=== PATIENT | female | born 1995 | race African-American/Black ===

== ENCOUNTER 2019-10-05 02:23 | Inpatient (IN) | payer OTHER ==
[2019-10-05] MEDS ORDERED: FOLIC ACID INJECTION - 1 MG, THIAMINE HCL 100 MG, MULTIVIT INJECTION ADULT 10 ML in SOD... IVPB ONE (03:46)
--- NOTE | 2019-10-05 04:00 | PDOC ---
History of Present Illness - General Chief Complaint: Injury Stated Complaint: FALL Time Seen by Provider: 10/05/19 02:36 - History of Present Illness Initial Comments: 10/05/19 03:52 HPI: 24 y/o F with hx of breast reduction, abdominoplasty, BL lens placement and removal presenting following a fall. She states she was cleaning and getting ready to take out trash when her legs gave out and she fell down forward on to her knees and her face brushed against the ground. She was not able to get herself up off the floor due to feeling weak. She was on the ground for 25min before EMS came to help. She reports worsening weakness since . She reports proximal muscle distribution of the weakness in her hip flexors and deltoids. She reports weakness is more prominent when walking up the stairs, getting up out of bed, reaching above head, getting off toilet. She states her weakness is worse near the end of a flight of stairs. She also reports muscle soreness in the proximal muscle distribution. She reports SOB and increased WOB when walking long distances. She denies recent travel, camping, hikinh, lifting , exercise, fever, chills, rash, chest pain, GARCIA, LH, dizziness, dysuria. PMHx: as noted above ROS: as noted SHx: Denies tobacco use; no alcohol use; no rec drugs Allergies: NKDA ROS: GENERAL/CONSTITUTIONAL: No fever or chills. +weakness. HEAD, EYES, EARS, NOSE AND THROAT: No change in vision. No ear pain or discharge. No sore throat. CARDIOVASCULAR: No chest pain or shortness of breath RESPIRATORY: No cough, wheezing, or hemoptysis. GASTROINTESTINAL: No nausea, vomiting, diarrhea or constipation. GENITOURINARY: No dysuria, frequency, or change in urination. MUSCULOSKELETAL: +muscle pain. No neck or back pain. SKIN: No rash NEUROLOGIC: No headache, vertigo, loss of consciousness, or change in strength/ sensation. ENDOCRINE: No increased thirst. No abnormal weight change HEMATOLOGIC/LYMPHATIC: No anemia, easy bleeding, or history of blood clots. ALLERGIC/IMMUNOLOGIC: No hives or skin allergy. PE: GENERAL: Awake, alert, and fully oriented, no acute distress HEAD: No signs of trauma, normocephalic, atraumatic EYES: EOMI, sclera anicteric, conjunctiva clear, no nystagmus or fatigability on blinking ENT: Auricles normal inspection, hearing grossly normal, nares patent, oropharynx clear without exudates. Moist mucosa NECK: Normal ROM, no lymphadenopathy LUNGS: No increased work of breathing, symmetrical chest rise, clear to auscultation bilaterally, no wheezes, crackles or rhonchi HEART: Regular rate, regular rhythm, normal S1 and S2, no murmur, peripheral pulses 2+ and equal bilaterally. ABDOMEN: Soft, nondistended, nontender, normoactive bowel sounds. No guarding, no rebound. No masses. No CVAT MUSCULOSKELETAL: Normal inspection, FROM NEUROLOGICAL: Cranial nerves II through XII grossly intact. Normal speech, normal gait, 4/5 str on hip flexion BL SKIN: Warm, Dry, normal turgor, no rashes or lesions noted Past History - Past Medical History Allergies/Adverse Reactions: Allergies Allergy/AdvReac Type Severity Reaction Status Date / Time No Known Allergies Allergy Verified 10/05/19 02:57 Home Medications: Ambulatory Orders NK [No Known Home Medication] 10/05/19 CVA: No COPD: No - Psycho Social/Smoking Cessation Hx Smoking History: Never smoked Have you smoked in the past 12 months: No Information on smoking cessation initiated: No Hx Alcohol Use: No Drug/Substance Use Hx: No *Physical Exam - Vital Signs Last Vital Signs Temp Pulse Resp BP Pulse Ox 98.4 F 102 H 18 139/89 100 10/05/19 02:52 10/05/19 02:52 10/05/19 02:52 10/05/19 02:52 10/05/19 02:52 ED Treatment Course - LABORATORY CBC & Chemistry Diagram: 10/05/19 03:50 10/05/19 03:50 Medical Decision Making - Medical Decision Making 10/05/19 04:00 24 y/o F with hx of breast reduction, abdominoplasty, BL lens placement and removal presenting following a fall and progressively worsening proximal muscle weakness associated with muscle soreness. VSS, AF. PE with 4/5 hip flexor str. DDX include lyme, MS, MG, polymyositis, dermatomyositis, lyte imbalance, , nutritional deficiencies. -cbc, cmp, mg, phos, ua, upreg, ck, tsh -banana bag 10/05/19 05:45 Laboratory Tests 10/05/19 10/05/19 10/05/19 03:50 03:50 03:50 WBC 10.5 H Plt Count 441 H AST 603 H ALT 394 H Alkaline Phosphatase 41 L Troponin I 0.29 H TSH 6.07 H Urine Protein 1+ H Urine Blood 3+ H Will order T3/T4, EKG, CXR 10/05/19 06:38 will signout to AM team to followup admission Discharge - Discharge Information Problems reviewed: Yes Clinical Impression/Diagnosis: Proximal muscle weakness, Elevated troponin, Transaminitis Condition: Stable - Follow up/Referral Referrals: Sid Perry MD [Primary Care Provider] - - Patient Discharge Instructions - Post Discharge Activity
[2019-10-05 04:23] LABS: BASO % 0.3 % (0-2.0); EOS % 1.5 % (0-4.5); HEMATOCRIT 36.6 % (32.4-45.2); HEMOGLOBIN 11.8 GM/dL (10.7-15.3); LYMPH % 13.3 % (8-40); MCH 25.1 pg (25.7-33.7); MCHC 32.2 g/dl (32.0-36.0); MEAN CELL VOLUME 77.9 fl (80-96); MEAN PLT VOLUME 7.6 fl (7.5-11.1); MONO % 6.3 % (3.8-10.2); NEUT % 78.6 % (42.8-82.8); PLATELET COUNT 441 K/MM3 (134-434); RDW 16.2 % (11.6-15.6); WHITE BLOOD COUNT 10.5 K/mm3 (4.0-10.0)
[2019-10-05 04:24] LABS: EPI CELLS 2.7 /HPF (0-5/HPF); HYALINE CASTS 10 /lpf (0-8); URINE APPEARANCE CLEAR; URINE BACTERIA 20.3 /hpf (NEGATIVE); URINE BILIRUBIN NEGATIVE (NEGATIVE); URINE COLOR YELLOW; URINE GLUCOSE (UA) NEGATIVE (NEGATIVE); URINE KETONE NEGATIVE (NEGATIVE); URINE LEUK ESTERASE NEGATIVE (NEGATIVE); URINE NITRITE NEGATIVE (NEGATIVE); URINE PROTEIN 1+ (NEGATIVE); URINE RBC 1 /hpf (0-4); URINE WBC 2 /hpf (0-5)
--- NOTE | 2019-10-05 04:45 | PDOC ---
Attending Attestation - Resident Resident Name: Kelvin Brewster - ED Attending Attestation I have performed the following: I have examined & evaluated the patient, The case was reviewed & discussed with the resident, I agree w/resident's findings & plan - HPI HPI: 10/05/19 06:07 Pt comes with weakness that has been plaguing her since Jul. 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 She states that she lives on her own in [place] the city. She prepares her own food and she eats well. SHe doesn't smoke or drink and she has no idea what runs in the family. SHe has no PMHx and she had breast reduction and abdominoplasty in [place] in 2014. SHe is crying when I go to see her because she is frustrated and doesn't know what is wrong with herself. - Physicial Exam PE: 10/05/19 06:11 Pt is overweight Heart S1 S2 RRR lungs clear bilat afebrile abd soft NT ND no flank pain No pitting edema of legs. Pt states that she has edema when she sits for a long time Pt has exquisite body weakness. She is unable to sit up from a reclined position without great difficulty. I agree with resident exam - Medical Decision Making 10/05/19 04:55 Pt has normal chem. 10/05/19 04:56 UA normal; not . Some blood in the urine. Pt recently finished her menses. 10/05/19 06:13 Pt will be admitted for: elevated troponin elevated LFTs Elevated TSH extreme weakness She will require endocrine consult and cardio consult and neuro consult. Heart Score/ECG Review - ECG Intrepretation Rhythm: Regular Rhythm - Mcintosh Mcintosh: Normal - P and [place] Prominent R with upright T in V1 (true posterior OR): No Delta Wave(s) Present: No WPW: No - QRS Poor R Wave Progression: No Q Wave Present: No - ST and T Early Repolarization: No Non Specific ST-T Wave changes: No Flattened T Waves: No Prolonged Q-T Interval: No - ECG Impressions Normal ECG: Yes Non-specific ST Elevation: No Ischemic Changes: No Bradycardia: No Torsades elham Pointes: No WPW: No
[2019-10-05 05:14] LABS: ALBUMIN 3.5 g/dl (3.4-5.0); ALK PHOS 41 U/L (45-117); ANION GAP 7 MMOL/L (8-16); BILIRUBIN,TOTAL 0.3 mg/dL (0.2-1); BLOOD UREA NITROGEN 7.5 mg/dL (7-18); CALCIUM 8.9 mg/dL (8.5-10.1); CHLORIDE 104 mmol/L (98-107); CO2 27 mmol/L (21-32); CREATININE 0.5 mg/dL (0.55-1.3); GLUCOSE,RANDOM 103 mg/dL (74-106); MAGNESIUM 1.9 mg/dL (1.8-2.4); PHOSPHOROUS 3.3 mg/dL (2.5-4.9); POTASSIUM 3.6 mmol/L (3.5-5.1); SGOT/AST 603 U/L (15-37); SGPT/ALT 394 U/L (13-61); SODIUM 138 mmol/L (136-145); TOT PROT 7.9 g/dl (6.4-8.2)
[2019-10-05 08:59] LABS: INR 1.07 (0.83-1.09); PROTHROMBIN TIME (PATIENT) 12.6 SEC (9.7-13.0)
[2019-10-05 09:03] LABS: LDH 1668 U/L (84-246)
--- NOTE | 2019-10-05 09:38 | PN ---
Teaching Attending Note Name of Resident: Reynold Edwards ATTENDING PHYSICIAN STATEMENT I saw and evaluated the patient. I reviewed the resident's note and discussed the case with the resident. I agree with the resident's findings and plan as documented. SUBJECTIVE: Patient is a 24yo female presented with proximal lower exteremity weakness, unable to ambulate. OBJECTIVE: Vital Signs Temperature 98.6 F 10/05/19 05:27 Pulse Rate 87 10/05/19 05:27 Respiratory Rate 15 10/05/19 05:27 Blood Pressure 121/73 10/05/19 05:27 O2 Sat by Pulse Oximetry (%) 100 10/05/19 05:27 GENERAL: The patient is awake, alert, and fully oriented, in no acute distress. HEAD: Normal with no signs of trauma. EYES: PERRL, extraocular movements intact, sclera anicteric, conjunctiva clear. ENT: Ears normal, oropharynx clear without exudates, moist mucous membranes. NECK: Trachea midline, full range of motion, supple. LUNGS: Breath sounds equal, clear to auscultation bilaterally, no wheezes, no crackles, no accessory muscle use. HEART: Regular rate and rhythm, S1, S2 without murmur, rub or gallop. ABDOMEN: Soft, nontender, nondistended, normoactive bowel sounds, no guarding, no rebound, no hepatosplenomegaly, no masses. EXTREMITIES: 2+ pulses, warm, well-perfused, no edema. NEUROLOGICAL: Cranial nerves II through XII grossly intact. Normal speech, gait not observed. PSYCH: Normal mood, normal affect. SKIN: Warm, dry, normal turgor, no rashes or lesions noted CBCD WBC 10.5 K/mm3 (4.0-10.0) H 10/05/19 03:50 RBC 4.70 M/mm3 (3.60-5.2) 10/05/19 03:50 Hgb 11.8 GM/dL (10.7-15.3) 10/05/19 03:50 Hct 36.6 % (32.4-45.2) 10/05/19 03:50 MCV 77.9 fl (80-96) L 10/05/19 03:50 MCHC 32.2 g/dl (32.0-36.0) 10/05/19 03:50 RDW 16.2 % (11.6-15.6) H 10/05/19 03:50 Plt Count 441 K/MM3 (134-434) H 10/05/19 03:50 MPV 7.6 fl (7.5-11.1) 10/05/19 03:50 CMP Sodium 138 mmol/L (136-145) 10/05/19 03:50 Potassium 3.6 mmol/L (3.5-5.1) 10/05/19 03:50 Chloride 104 mmol/L (98-107) 10/05/19 03:50 Carbon Dioxide 27 mmol/L (21-32) 10/05/19 03:50 Anion Gap 7 MMOL/L (8-16) L 10/05/19 03:50 BUN 7.5 mg/dL (7-18) 10/05/19 03:50 Creatinine 0.5 mg/dL (0.55-1.3) L 10/05/19 03:50 Random Glucose 103 mg/dL (74-106) 10/05/19 03:50 Calcium 8.9 mg/dL (8.5-10.1) 10/05/19 03:50 Total Bilirubin 0.3 mg/dL (0.2-1) 10/05/19 03:50 AST 603 U/L (15-37) H 10/05/19 03:50 ALT 394 U/L (13-61) H 10/05/19 03:50 Alkaline Phosphatase 41 U/L (45-117) L 10/05/19 03:50 Total Protein 7.9 g/dl (6.4-8.2) 10/05/19 03:50 Albumin 3.5 g/dl (3.4-5.0) 10/05/19 03:50 CARDIAC ENZYMES Creatine Kinase U/L (26-192) 10/05/19 03:50 Troponin I 0.29 ng/ml (0.00-0.05) H 10/05/19 03:50 Current Medications Generic Name Dose Route Start Last Admin Trade Name Freq PRN Reason Stop Dose Admin Folic Acid 1 mg/ Thiamine HCl 1,000 mls @ 125 mls/hr 10/05/19 03:46 10/05/19 04:57 100 mg/ Multivitamins/Minerals IVPB 10/05/19 11:45 125 mls/hr 10 ml/ Sodium Chloride ONCE ONE Administration Abd. US shows only shows mild diffuse hepatic steatosis ASSESSMENT AND PLAN: Pt. is a 24 y.o. F with no PMHx. who presents with progressive muscle weakness over the last month. Patient stated that she was running some errands in the house when she collapsed, because of proximal lower extremity weakness. #Acute Progressive lower Muscle Weakness with cpk leve over >14K, cpk every 6 hrs, ivf 200cc/hr, nephro consult, tsh, ft4 ordered, hari=yme , flu ordered, drug screen #Acute Rhabdo. the cause is unknown so far , continue IVF 200cc/hr , nephro on the case #Tropinemia : likley due to rhabdomyolysis; Initial 0.29 will trend and repeat EKG to r/o dynamic changes f/u Echo as EKG shows TWI in septal leads and T-wave flattening in V3, with associated dyspnea on exertion after 1 block Cardiology consult to Dr. Howard appreciated. #Acute Transaminitis continue IVF , most likely due to rhabdomyolysis DVT Ppx: Hep SQ
--- NOTE | 2019-10-05 09:48 | HP ---
CHIEF COMPLAINT: Progressive weakness PCP: Dr. Sid Perry HISTORY OF PRESENT ILLNESS: Pt. is a 24 y.o. F w/o PMHx. who presents with progressive muscle weakness over the last month. Pt. states that she was taking care of errands in the house when she collapsed, because of lower extremity weakness. Pt. was unable to get off the floor so she called 911 and was brought to the hospital. Pt. states she was only on the floor for 15 minutes and denies working out or and trauma. Pt. states that the weakness is not new but started in July and has gotten worse. Pt. states that around 3 weeks ago she fell because of the same weakness. Pt. states that is has been getting worse. Pt. endorses shortness of breath on exertion and is only able to walk 1 block before feeling short of breath. Pt. states she only uses 1 pillow at night. Pt. states that she has numbness/tingling in her hands at night. Pt. denies any family history of cardiac disease, sudden in any family members under the age of 60, any family history of MS, ALS, or any other neurological disorders. Pt. denies any recent travel, and camping, recent illness, tick bites, changes in bowel or urinary habits. Pt. states her Last menstrual cycle just ended and that there was no changes. Pt. states she last saw her PCP in the summer and had an EKG of which she said was normal. Pt. does endorse that some time between the summer and now she did have an episode of chest pain that she never sought treatment for. Pt. denies any chest pain currently. ER course was notable for: (1)CBC, LDH, CMP, Abd US. (2)EKG, Cardiac monitoring (3) Recent Travel: No PAST MEDICAL HISTORY: Denies PAST SURGICAL HISTORY: Breast Reduction, Abdominoplasty, b/l lens surgery for blurry vision Social History: Smoking: Denies Alcohol: Denies Drugs: Denies Allergies No Known Allergies Allergy (Verified 10/05/19 02:57) HOME MEDICATIONS: Home Medications Medication Instructions Recorded NK [No Known Home Medication] 10/05/19 REVIEW OF SYSTEMS As above PHYSICAL EXAMINATION Vital Signs - 24 hr 10/05/19 10/05/19 02:52 05:27 Temperature 98.4 F 98.6 F Pulse Rate 102 H Pulse Rate [ 87 Right Radial] Respiratory 18 15 Rate Blood Pressure 139/89 Blood Pressure 121/73 [Left Arm] O2 Sat by Pulse 100 100 Oximetry (%) GENERAL: Awake, alert, and fully oriented, in no acute distress. HEAD: Normal with no signs of trauma. EYES: Pupils equal, round and reactive to light, extraocular movements intact, sclera anicteric, conjunctiva clear. EARS, NOSE, THROAT: Moist mucous membranes. NECK: Normal range of motion, supple without lymphadenopathy, JVD, or masses. LUNGS: Breath sounds equal, clear to auscultation bilaterally. No wheezes, and no crackles. No accessory muscle use. HEART: Regular rate and rhythm, normal S1 and S2, loud 1st heart sound ABDOMEN: Soft, nontender, not distended, normoactive bowel sounds, no guarding, no rebound, no masses. No hepatomegaly or splenomegaly. MUSCULOSKELETAL: Decreased passive ROM 2/2 weakness. No CVA tenderness. UPPER EXTREMITIES: 2+ radial pulses, warm, well-perfused. No cyanosis. No clubbing. No peripheral edema. 3/5 proximal extensor muscle strength, 4/5 proximal flexor muscle strength. 5/5 strenght in all other muscle groups including lap welder strength LOWER EXTREMITIES: 2+ dorsal pedal pulses, warm, well-perfused. No calf tenderness. trace non-pitting edema. 5/5 distal muscle strength. 2/5 flexor muscle strength, 5/5 extensor muscle strength, 5/5 muscle strength in all other muscle groups NEUROLOGICAL: Cranial nerves II-XII grossly intact. Normal speech. Gait not assessed. Sensation in tact throughout. PSYCHIATRIC: Cooperative. Good eye contact. Appropriate mood and affect. SKIN: Warm, dry, normal turgor Laboratory Results - last 24 hr 10/05/19 10/05/19 10/05/19 03:50 03:50 03:50 WBC 10.5 H RBC 4.70 Hgb 11.8 Hct 36.6 MCV 77.9 L MCH 25.1 L MCHC 32.2 RDW 16.2 H Plt Count 441 H MPV 7.6 Absolute Neuts (auto) 8.3 H Neutrophils % 78.6 Lymphocytes % 13.3 Monocytes % 6.3 Eosinophils % 1.5 Basophils % 0.3 Nucleated RBC % 0 PT with INR INR Sodium 138 Potassium 3.6 Chloride 104 Carbon Dioxide 27 Anion Gap 7 L BUN 7.5 Creatinine 0.5 L Est GFR (CKD-EPI)AfAm 155.90 Est GFR (CKD-EPI)NonAf 134.52 Random Glucose 103 Calcium 8.9 Phosphorus 3.3 Magnesium 1.9 Total Bilirubin 0.3 AST 603 H ALT 394 H Alkaline Phosphatase 41 L LD Total 1668 H Creatine Kinase Troponin I 0.29 H Total Protein 7.9 Albumin 3.5 TSH 6.07 H Free T4 1.13 Thyroxine (T4) 10.8 Resin T3 Uptake 35.0 Urine Color Urine Appearance Urine pH Ur Specific [place] Urine Protein Urine Glucose (UA) Urine Ketones Urine Blood Urine Nitrite Urine Bilirubin Urine Urobilinogen Ur Leukocyte Esterase Urine WBC (Auto) Urine RBC (Auto) Urine Casts (Auto) U Epithel Cells (Auto) Urine Bacteria (Auto) Urine HCG, Qual Negative 10/05/19 10/05/19 03:50 03:50 WBC RBC Hgb Hct MCV MCH MCHC RDW Plt Count MPV Absolute Neuts (auto) Neutrophils % Lymphocytes % Monocytes % Eosinophils % Basophils % Nucleated RBC % PT with INR 12.60 INR 1.07 Sodium Potassium Chloride Carbon Dioxide Anion Gap BUN Creatinine Est GFR (CKD-EPI)AfAm Est GFR (CKD-EPI)NonAf Random Glucose Calcium Phosphorus Magnesium Total Bilirubin AST ALT Alkaline Phosphatase LD Total Creatine Kinase Troponin I Total Protein Albumin TSH Free T4 Thyroxine (T4) Resin T3 Uptake Urine Color Yellow Urine Appearance Clear Urine pH 5.0 Ur Specific [place] 1.019 Urine Protein 1+ H Urine Glucose (UA) Negative Urine Ketones Negative Urine Blood 3+ H Urine Nitrite Negative Urine Bilirubin Negative Urine Urobilinogen 1.0 Ur Leukocyte Esterase Negative Urine WBC (Auto) 2 Urine RBC (Auto) 1 Urine Casts (Auto) 10 U Epithel Cells (Auto) 2.7 Urine Bacteria (Auto) 20.3 Urine HCG, Qual ASSESSMENT/PLAN: Pt. is a 24 y.o. F w/o PMHx. who presents with progressive muscle weakness over the last month. Pt. states that she was taking care of errands in the house when she collapsed, because of lower extremity weakness. #Progressive Muscle Weakness likely secondary to rhabdomyolsis CPK: 14,000+, LDH 1,600+ will give aggressive IVF and trend CPK daily f/u ESR and CRP Pt. denies increased physical activity in addition to the progressive nature of her illness, moderate supsicion for inflammatory myopathy Will monitor for signs of compartment syndrome Pt. has elevated TSH: 6.00, however normal levels of T3 and T4, likely subclinical hypothyroidism. Lower on the differential to be the causative agent. f/u Influenza swab f/u Lyme serology #Tropinemia likley 2/2 to rhabdomyolysis Initial 0.29 will trend and repeat EKG to r/o dynamic changes f/u Echo as EKG shows TWI in septal leads and T-wave flattening in V3, with associated dyspnea on exertion after 1 block Cardiology consult to Dr. Howard appreciated. #Transaminitis likes 2/2 to rhabdomyolysis will c/w trend Abd. US shows only shows mild diffuse hepatic steatosis #FEN NS @ 200, will encourage PO intake as well monitor electrolytes and replete as needed Regular Diet #DVT Ppx. Hep SQ Visit type - Emergency Visit Emergency Visit: Yes ED Registration Date: 10/05/19 Care time: The patient presented to the Emergency Department on the above date and was hospitalized for further evaluation of their emergent condition. - New Patient This patient is new to me today: Yes Date on this admission: 10/05/19 - Critical Care Critical Care patient: No ATTENDING PHYSICIAN STATEMENT I saw and evaluated the patient. I reviewed the resident's note and discussed the case with the resident. I agree with the resident's findings and plan as documented. SUBJECTIVE: OBJECTIVE: ASSESSMENT AND PLAN:
[2019-10-05] MEDS ORDERED: SODIUM CHLORIDE 1,000 ML IV SCH (10:00)
--- NOTE | 2019-10-05 11:01 | EKG ---
Test Reason : Blood Pressure : / mmHG Vent. Rate : 084 BPM Atrial Rate : 084 BPM P-R Int : 160 ms QRS Dur : 080 ms QT Int : 370 ms P-R-T Axes : 055 036 025 degrees QTc Int : 437 ms NORMAL SINUS RHYTHM NONSPECIFIC T WAVE ABNORMALITY ABNORMAL ECG NO PREVIOUS ECGS AVAILABLE Confirmed by IAN GALLARDO MD ([id number]) on 10/05/2019 11:01:06 AM Referred By: Confirmed By:IAN GALLARDO MD
[2019-10-05] MEDS: HEPARIN NA (PORCINE) 5,000 UNITS/ML 1ML VIAL SQ SCH ×2 (11:41→18:18)
[2019-10-05] MEDS: SODIUM CHLORIDE 1,000 ML IV SCH (13:18)
[2019-10-05 14:38] LABS: COCAINE, UR NEGATIVE ng/ml (CUTOFF=300); METHADONE, UR NEGATIVE ng/ml (CUTOFF=300); OPIATES, URI NEGATIVE ng/ml (CUTOFF=300); PHENCYCLIDINE,URINE NEGATIVE ng/ml (CUTOFF=25); URINE AMPHETAMINES NEGATIVE ng/ml (CUTOFF=500); URINE BARBITURATES NEGATIVE ng/ml (CUTOFF=200); URINE BENZODIAZEPINES NEGATIVE ng/ml (CUTOFF=200)
[2019-10-05] MEDS ORDERED: KETOROLAC TROMETHAMINE 15 MG/ML VIAL IM ONE (15:07)
[2019-10-05] MEDS ORDERED: ACETAMINOPHEN 1000 MG/100 ML VIAL (NON FORMULARY) IVPB ONE (15:08)
[2019-10-06] MEDS ORDERED: HEPARIN NA (PORCINE) 5,000 UNITS/ML 1ML VIAL ONE (03:20)
[2019-10-06] MEDS: HEPARIN NA (PORCINE) 5,000 UNITS/ML 1ML VIAL SQ SCH ×4 (03:27→18:34)
--- NOTE | 2019-10-06 10:02 | EKG ---
Test Reason : Blood Pressure : / mmHG Vent. Rate : 089 BPM Atrial Rate : 089 BPM P-R Int : 156 ms QRS Dur : 078 ms QT Int : 364 ms P-R-T Axes : 042 049 030 degrees QTc Int : 442 ms NORMAL SINUS RHYTHM NORMAL ECG WHEN COMPARED WITH ECG OF 05-OCT-2019 06:36, T WAVE VARIATION Confirmed by ROSELYN RICHARD MD ([id number]) on 10/06/2019 10:01:31 AM Referred By: Judith RUEDA Confirmed By:ROSELYN IRCHARD MD
--- NOTE | 2019-10-06 10:13 | PN ---
Physical Exam: SUBJECTIVE: Patient seen and examined. Pt. states her stay in the ED was uncomfortable overnight. Pt. endorses worsening numbness and swelling of the lower extremities. Pt. endorses sustained weakness of the lower extremities. Pt. otherwise endorses a good appetite and resolution of abdominal pain. Pt. denies chest pain or shortness of breath. Pt. states that she has not been receiving the correct amount of IV fluids, states that she has only received 2L in the last 24 hours. Pt was supposed to receive 5. Pt. states that her weakness has not improved. Pt. states that she feels her lower extremities are numb and swollen. Pt. states that her abdominal pain has gone away. OBJECTIVE: Vital Signs Period Temp Pulse Resp BP Sys/Newell Pulse Ox Last 24 Hr 97.9 F-98.9 F 66-93 16-20 122-141/70-98 100-100 GENERAL: Awake, alert, and fully oriented, in no acute distress. HEAD: Normal with no signs of trauma. EYES: Pupils equal, round and reactive to light, extraocular movements intact, sclera anicteric, conjunctiva clear. EARS, NOSE, THROAT: Moist mucous membranes. NECK: Normal range of motion, supple without lymphadenopathy, JVD, or masses. LUNGS: Breath sounds equal, clear to auscultation bilaterally. No wheezes, and no crackles. No accessory muscle use. HEART: Regular rate and rhythm, normal S1 and S2, loud 1st heart sound ABDOMEN: Soft, nontender, not distended, normoactive bowel sounds, no guarding, no rebound, no masses. No hepatomegaly or splenomegaly. MUSCULOSKELETAL: Decreased passive ROM 2/2 weakness. No CVA tenderness. UPPER EXTREMITIES: 2+ radial pulses, warm, well-perfused. No cyanosis. No clubbing. No peripheral edema. 3/5 proximal extensor muscle strength, 4/5 proximal flexor muscle strength. 5/5 strenght in all other muscle groups including director of labor and delivery strength LOWER EXTREMITIES: 2+ dorsal pedal pulses, warm, well-perfused. No calf tenderness. trace non-pitting edema. 5/5 distal muscle strength. 2/5 flexor muscle strength, 5/5 extensor muscle strength, 5/5 muscle strength in all other muscle groups NEUROLOGICAL: Cranial nerves II-XII grossly intact. Normal speech. Gait not assessed. Sensation in tact throughout. PSYCHIATRIC: Cooperative. Good eye contact. Appropriate mood and affect. SKIN: Warm, dry, normal turgor Laboratory Results - last 24 hr 10/05/19 10/05/19 10/05/19 07:06 09:20 10:50 ESR 24 H Hemoglobin A1c % Creatine Kinase > 21028 H Creatine Kinase Index 0.0 CK-MB (CK-2) 210.5 H Troponin I C-Reactive Protein Triglycerides Cholesterol Total LDL Cholesterol HDL Cholesterol Serum Folate Opiates Screen Negative Methadone Screen Negative Barbiturate Screen Negative Phencyclidine Screen Negative Ur Amphetamines Screen Negative MDMA (Ecstasy) Screen Negative Benzodiazepines Screen Negative Cocaine Screen Negative U Marijuana (THC) Screen Negative Influenza A (Rapid) Influenza B (Rapid) 10/05/19 10/05/19 10/05/19 10:50 10:50 10:50 ESR Hemoglobin A1c % 5.0 Creatine Kinase > 62582 H Creatine Kinase Index 0.0 CK-MB (CK-2) 210.5 H Troponin I 0.30 H C-Reactive Protein 1.9 H Triglycerides 355 H Cholesterol 176 Total LDL Cholesterol 95 HDL Cholesterol 30 L Serum Folate 19 H Opiates Screen Methadone Screen Barbiturate Screen Phencyclidine Screen Ur Amphetamines Screen MDMA (Ecstasy) Screen Benzodiazepines Screen Cocaine Screen U Marijuana (THC) Screen Influenza A (Rapid) Influenza B (Rapid) 10/05/19 10/05/19 10/05/19 16:00 20:27 22:55 ESR Hemoglobin A1c % Creatine Kinase > 71603 H Creatine Kinase Index 0.0 CK-MB (CK-2) 247.6 H Troponin I 0.28 H 0.29 H C-Reactive Protein Triglycerides Cholesterol Total LDL Cholesterol HDL Cholesterol Serum Folate Opiates Screen Methadone Screen Barbiturate Screen Phencyclidine Screen Ur Amphetamines Screen MDMA (Ecstasy) Screen Benzodiazepines Screen Cocaine Screen U Marijuana (THC) Screen Influenza A (Rapid) Negative Influenza B (Rapid) Negative Active Medications Home Medications Medication Instructions Recorded NK [No Known Home Medication] 10/05/19 Current Medications Heparin Sodium (Porcine) (Heparin -) 5,000 unit SQ Q8H-IV JESSI Last Admin: 10/06/19 03:57 Dose: 5,000 unit Sodium Chloride (Normal Saline -) 1,000 mls @ 200 mls/hr IV ASDIR JESSI Last Admin: 10/05/19 13:18 Dose: 200 mls/hr ASSESSMENT/PLAN: Pt. is a 24 y.o. F w/o PMHx. who presents with progressive muscle weakness over the last month. Pt. states that she was taking care of errands in the house when she collapsed, because of lower extremity weakness. #Progressive Muscle Weakness likely secondary to rhabdomyolsis w/ high suspicion for inflammatory myopathy as the etiology CPK: 14,000+, LDH 1,600+; call lab and they stated they are sending out the lab to get an actual count. will give aggressive IVF and trend CPK daily elevated ESR and CRP Pt. denies increased physical activity in addition to the progressive nature of her illness, moderate supsicion for inflammatory myopathy Will monitor for signs of compartment syndrome Pt. has elevated TSH: 6.00, however normal levels of fT3 and fT4, likely subclinical hypothyroidism. Lower on the differential to be the causative agent. f/u Rheumatology consult (Dr. Lea)- will likely need muscle biopsy because of the length of time that the Pt. has had symptoms. Flu negative UTox negative f/u Lyme serology #Tropinemia likley 2/2 to rhabdomyolysis Troponins plateaued, will continue to trend f/u Echo as EKG shows TWI in septal leads and T-wave flattening in V3, with associated dyspnea on exertion after 1 block Cardiology consult to Dr. Howard appreciated. #Transaminitis likes 2/2 to rhabdomyolysis will c/w trend Abd. US shows only shows mild diffuse hepatic steatosis #FEN NS @ 200, will encourage PO intake as well monitor electrolytes and replete as needed Regular Diet #DVT Ppx. Hep SQ Visit type - Emergency Visit Emergency Visit: Yes ED Registration Date: 10/05/19 Care time: The patient presented to the Emergency Department on the above date and was hospitalized for further evaluation of their emergent condition. - New Patient This patient is new to me today: No - Critical Care Critical Care patient: No - Discharge Referral Referred to [facility] No ATTENDING PHYSICIAN STATEMENT I saw and evaluated the patient. I reviewed the resident's note and discussed the case with the resident. I agree with the resident's findings and plan as documented. SUBJECTIVE: OBJECTIVE: ASSESSMENT AND PLAN:
[2019-10-06] MEDS: SODIUM CHLORIDE 1,000 ML IV SCH ×3 (10:47→23:28)
--- NOTE | 2019-10-06 10:59 | CON.CARD ---
Consult Consult Specialty:: Cardiology - History of Present Illness History of Present Illness: 24 y/o F with hx of breast reduction, abdominoplasty, BL lens placement and removal presenting following a fall. She states she was cleaning and getting ready to take out trash when her legs gave out and she fell down forward on to her knees and her face brushed against the ground. She was not able to get herself up off the floor due to feeling weak. She was on the ground for 25min before EMS came to help. She reports worsening weakness since . She reports proximal muscle distribution of the weakness in her hip flexors and deltoids. She reports weakness is more prominent when walking up the stairs, getting up out of bed, reaching above head, getting off toilet. She states her weakness is worse near the end of a flight of stairs. She also reports muscle soreness in the proximal muscle distribution. She reports SOB and increased WOB when walking long distances. She denies recent travel, camping, hikinh, lifting , exercise, fever, chills, rash, chest pain, GARCIA, LH, dizziness, dysuria. PMHx: as noted above ROS: as noted SHx: Denies tobacco use; no alcohol use; no rec drugs Allergies: NKDA - History Source History Provided By: Patient, Medical Record - Past Medical History ...: No - Alcohol/Substance Use Hx Alcohol Use: No - Smoking History Smoking history: Never smoked Have you smoked in the past 12 months: No Home Medications - Allergies Allergies/Adverse Reactions: Allergies Allergy/AdvReac Type Severity Reaction Status Date / Time No Known Allergies Allergy Verified 10/05/19 02:57 - Home Medications Home Medications: Ambulatory Orders NK [No Known Home Medication] 10/05/19 Review of Systems - Review of Systems Constitutional: reports: No Symptoms Eyes: reports: No Symptoms HENT: reports: No Symptoms Neck: reports: No Symptoms Cardiovascular: reports: No Symptoms Respiratory: reports: No Symptoms Gastrointestinal: reports: No Symptoms Genitourinary: reports: No Symptoms Breasts: reports: No Symptoms Reported Musculoskeletal: reports: No Symptoms Integumentary: reports: No Symptoms Neurological: reports: Weakness Endocrine: reports: No Symptoms Hematology/Lymphatic: reports: No Symptoms Psychiatric: reports: No Symptoms Vital Signs: Vital Signs Temperature 97.9 F 10/06/19 09:00 Pulse Rate 93 H 10/06/19 09:00 Respiratory Rate 18 10/06/19 09:00 Blood Pressure 123/70 10/06/19 09:00 O2 Sat by Pulse Oximetry (%) 100 10/05/19 23:44 Constitutional: Yes: Well Nourished, No Distress, Calm Eyes: Yes: WNL, Conjunctiva Clear, EOM Intact HENT: Yes: WNL, Atraumatic, Normocephalic Neck: Yes: WNL, Supple, Trachea Midline Respiratory: Yes: WNL, Regular, CTA Bilaterally Gastrointestinal: Yes: WNL, Normal Bowel Sounds Renal/: Yes: WNL Cardiovascular: Yes: WNL, Regular Rate and Rhythm Musculoskeletal: Yes: WNL Extremities: Yes: WNL Integumentary: Yes: WNL Neurological: Yes: WNL, Alert, Oriented ...Motor Strength: WNL Psychiatric: Yes: WNL, Alert, Oriented - Other Data Labs, Other Data: CBC, BMP 10/05/19 03:50 10/05/19 03:50 INR, PTT INR 1.07 (0.83-1.09) 10/05/19 03:50 Troponin, BNP 10/05/19 10/05/19 10/05/19 10:50 16:00 20:27 Troponin I 0.30 H 0.28 H 0.29 H Troponin, BNP 10/05/19 10/05/19 10/05/19 10:50 16:00 20:27 Troponin I 0.30 H 0.28 H 0.29 H Imaging - Results Chest X-ray: Image Reviewed (no i/e) EKG: Image Reviewed (sr wnl) Problem List - Problems (1) Elevated troponin Code(s): R79.89 - OTHER SPECIFIED ABNORMAL FINDINGS OF BLOOD CHEMISTRY (2) Proximal muscle weakness Code(s): M62.81 - MUSCLE WEAKNESS (GENERALIZED) (3) Transaminitis Code(s): R74.0 - NONSPEC ELEV OF LEVELS OF TRANSAMNS & LACTIC ACID DEHYDRGNSE Assessment/Plan Pt. is a 24 y.o. F w/o PMHx. who presents with progressive muscle weakness over the last month. Pt. states that she was taking care of errands in the house when she collapsed, because of lower extremity weakness. #Progressive Muscle Weakness/ rhabdomyolsis IVF f/u cpk Neurology eval IVF #Tropinemia likley 2/2 to rhabdomyolysis echo pending ekg #1 nonspecific rep abn ekg #2 WNL #Transaminitis likes 2/2 to rhabdomyolysis Abd. US shows only shows mild diffuse hepatic steatosis DVT PLx
--- NOTE | 2019-10-06 11:28 | ECHO ---
Name: RAFAELA RAMÍREZ Exam:Adult Echocardiogram Study Date: 10/06/2019 09:18 AM Age: 24 yrs Height: 65 in Weight: 175 lb BSA: 1.9 m2 MMode/2D Measurements & Calculations IVSd: 0.76 cm Ao root diam: 2.3 cm LVIDd: 4.1 cm LA dimension: 2.3 cm LVIDs: 2.7 cm LVPWd: 1.1 cm LVPWs: 1.3 cm EDV(Teich): 76.1 ml ESV(Teich): 26.0 ml LVOT diam: 2.0 cm RV S Valente: 14.8 cm/sec Doppler Measurements & Calculations MV E max valente: 107.1 cm/sec Ao V2 max: 165.3 cm/sec MV A max valente: 75.0 cm/sec Ao max P.0 mmHg MV E/A: 1.4 MV dec time: 0.08 sec RICA(V,D): 2.2 cm2 LV V1 max P.1 mmHg MR max valente: 300.7 cm/sec LV V1 max: 112.5 cm/sec MR max P.2 mmHg TR max valente: 212.4 cm/sec PA V2 max: 116.7 cm/sec TR max P.3 mmHg PA max P.5 mmHg Med Peak E' Valente: 11.3 cm/sec Med E/e': 9.5 Lat Peak E' Valente: 19.3 cm/sec Lat E/e': 5.5 Procedure A complete two-dimensional transthoracic echocardiogram was performed (2D, M-mode, Doppler and color flow Doppler). The study was technically good with many images being of high quality. Left Ventricle The left ventricle is normal in size. Left ventricular systolic function is normal. Ejection Fraction = 65- 70%. No regional wall motion abnormalities noted. Right Ventricle The right ventricle is normal size. The right ventricular systolic function is normal. Atria The left atrial size is normal. Right atrial size is normal. Mitral Valve The mitral valve is normal in structure and function. There is trace mitral regurgitation. Tricuspid Valve The tricuspid valve is normal in structure and function. There is Trace to mild tricuspid regurgitati on. Aortic Valve The aortic valve is normal in structure and function. No aortic regurgitation is present. Pulmonic Valve The pulmonic valve is not well visualized. Great Vessels The aortic root is normal size. Pericardium/Pleura There is no pericardial effusion. Interpretation Summary The left ventricle is normal in size. Left ventricular systolic function is normal. No regional wall motion abnormalities noted. Ejection Fraction = 65-70%. The right ventricular systolic function is normal. The left atrial size is normal. Right atrial size is normal. There is trace mitral regurgitation. There is Trace to mild tricuspid regurgitation. There is no pericardial effusion. Jose Marquez MD 10/06/2019 11:28 AM
[2019-10-06 11:45] LABS: EPI CELLS 3.1 /HPF (0-5/HPF); HYALINE CASTS 4 /lpf (0-8); PH,URINE 5.5 (5.0-8.0); URINE APPEARANCE CLEAR; URINE BILIRUBIN NEGATIVE (NEGATIVE); URINE COLOR YELLOW; URINE GLUCOSE (UA) NEGATIVE (NEGATIVE); URINE KETONE NEGATIVE (NEGATIVE); URINE LEUK ESTERASE NEGATIVE (NEGATIVE); URINE NITRITE NEGATIVE (NEGATIVE); URINE PROTEIN 1+ (NEGATIVE); URINE RBC 1 /hpf (0-4); URINE UROBILINOGEN 0.2 mg/dL (0.2-1.0); URINE WBC 1 /hpf (0-5)
--- NOTE | 2019-10-06 12:34 | CONSULT ---
Consult Consult Specialty:: Nephrology Reason for Consultation:: rhabdo - History of Present Illness Chief Complaint: weakness History of Present Illness: Pt is a 24 year old female with no pmhx who presents to the ER with weakness. She was found to be in rhabdo and I was called to evaluate her. She denies working out or strenuous exercise. She denies fevers or chills. She is wake and alert. She did complain of generalized body aches. she denies chest pain or shortness of breath. She denies hematuria. She denies family history of rheumatologic or neurologic diseases. - History Source History Provided By: Patient - Past Medical History ...: No - Alcohol/Substance Use Hx Alcohol Use: No - Smoking History Smoking history: Never smoked Have you smoked in the past 12 months: No Home Medications - Allergies Allergies/Adverse Reactions: Allergies Allergy/AdvReac Type Severity Reaction Status Date / Time No Known Allergies Allergy Verified 10/05/19 02:57 - Home Medications Home Medications: Ambulatory Orders NK [No Known Home Medication] 10/05/19 Family Medical History Family History: Denies Review of Systems - Review of Systems Constitutional: reports: Malaise Eyes: reports: No Symptoms HENT: reports: No Symptoms Neck: reports: No Symptoms Cardiovascular: reports: No Symptoms Respiratory: reports: No Symptoms Gastrointestinal: reports: No Symptoms Genitourinary: reports: No Symptoms Musculoskeletal: reports: No Symptoms Integumentary: reports: No Symptoms Neurological: reports: No Symptoms Endocrine: reports: No Symptoms Hematology/Lymphatic: reports: No Symptoms Psychiatric: reports: No Symptoms Physical Exam Vital Signs: Vital Signs Temperature 97.9 F 10/06/19 09:00 Pulse Rate 93 H 10/06/19 09:00 Respiratory Rate 18 10/06/19 09:00 Blood Pressure 123/70 10/06/19 09:00 O2 Sat by Pulse Oximetry (%) 100 10/06/19 08:45 Constitutional: Yes: Calm Eyes: Yes: Conjunctiva Clear HENT: Yes: Atraumatic Neck: Yes: Supple Cardiovascular: Yes: S1, S2 Respiratory: Yes: CTA Bilaterally Gastrointestinal: Yes: Soft Renal/: Yes: WNL Musculoskeletal: Yes: WNL Edema: No Neurological: Yes: Oriented Psychiatric: Yes: Oriented Labs: CBC, BMP 10/05/19 03:50 10/05/19 03:50 Laboratory Tests 10/05/19 10/05/19 10/05/19 03:50 07:06 22:55 Urine Protein Urine Blood Urine HCG, Qual Negative Opiates Screen Negative Methadone Screen Negative Cocaine Screen Negative U Marijuana (THC) Screen Negative Influenza A (Rapid) Negative Influenza B (Rapid) Negative 10/06/19 10:48 Urine Protein 1+ H Urine Blood 3+ H Urine HCG, Qual Opiates Screen Methadone Screen Cocaine Screen U Marijuana (THC) Screen Influenza A (Rapid) Influenza B (Rapid) Imaging - Results Chest X-ray: Report Reviewed Problem List - Problems (1) Rhabdomyolysis Code(s): M62.82 - RHABDOMYOLYSIS Assessment/Plan Current Medications Generic Name Dose Route Start Last Admin Trade Name Freq PRN Reason Stop Dose Admin Heparin Sodium (Porcine) 5,000 unit 10/05/19 10:00 10/06/19 10:47 Heparin - SQ 5,000 unit Q8H-IV JESSI Administration Sodium Chloride 1,000 mls @ 200 mls/hr 10/05/19 12:49 10/06/19 10:47 Normal Saline - IV 200 mls/hr ASDIR JESSI Administration Impression 1. rhabdo 2. hematuria 3. proteinuria 4. transaminitis Plan - cont fluids - check cmp - check cpk, called lab to report actual cpk level - pt with active sediment - check hep panel - monitor lytes and lfts - rheum eval
--- NOTE | 2019-10-06 14:40 | PN ---
Physical Exam: SUBJECTIVE: Patient seen and examined. Pt. states that she has not been receiving the correct amount of IV fluids, states that she has only received 2L in the last 24 hours. Pt was supposed to receive 5. Pt. states that her weakness has not improved. Pt. states that she feels her lower extremities are numb and swollen. Pt. states that her abdominal pain has gone away. OBJECTIVE: Vital Signs Period Temp Pulse Resp BP Sys/Newell Pulse Ox Last 24 Hr 97.9 F-98.9 F 66-93 16-20 122-141/70-98 100-100 GENERAL: Awake, alert, and fully oriented, in no acute distress. HEAD: Normal with no signs of trauma. EYES: Pupils equal, round and reactive to light, extraocular movements intact, sclera anicteric, conjunctiva clear. EARS, NOSE, THROAT: Moist mucous membranes. NECK: Normal range of motion, supple without lymphadenopathy, JVD, or masses. LUNGS: Breath sounds equal, clear to auscultation bilaterally. No wheezes, and no crackles. No accessory muscle use. HEART: Regular rate and rhythm, normal S1 and S2, loud 1st heart sound ABDOMEN: Soft, nontender, not distended, normoactive bowel sounds, no guarding, no rebound, no masses. No hepatomegaly or splenomegaly. MUSCULOSKELETAL: Decreased passive ROM 2/2 weakness. No CVA tenderness. UPPER EXTREMITIES: 2+ radial pulses, warm, well-perfused. No cyanosis. No clubbing. No peripheral edema. 3/5 proximal extensor muscle strength, 4/5 proximal flexor muscle strength. 5/5 strenght in all other muscle groups including upper cutter strength LOWER EXTREMITIES: 2+ dorsal pedal pulses, warm, well-perfused. No calf tenderness. trace non-pitting edema. 5/5 distal muscle strength. 2/5 flexor muscle strength, 5/5 extensor muscle strength, 5/5 muscle strength in all other muscle groups NEUROLOGICAL: Cranial nerves II-XII grossly intact. Normal speech. Gait not assessed. Sensation in tact throughout. PSYCHIATRIC: Cooperative. Good eye contact. Appropriate mood and affect. SKIN: Warm, dry, normal turgor Laboratory Results - last 24 hr 10/05/19 10/05/19 10/05/19 16:00 20:27 22:55 Creatine Kinase > 24289 H Creatine Kinase Index 0.0 CK-MB (CK-2) 247.6 H Troponin I 0.28 H 0.29 H Urine Color Urine Appearance Urine pH Ur Specific [place] Urine Protein Urine Glucose (UA) Urine Ketones Urine Blood Urine Nitrite Urine Bilirubin Urine Urobilinogen Ur Leukocyte Esterase Urine WBC (Auto) Urine RBC (Auto) Urine Casts (Auto) U Epithel Cells (Auto) Urine Bacteria (Auto) Influenza A (Rapid) Negative Influenza B (Rapid) Negative 10/06/19 10:48 Creatine Kinase Creatine Kinase Index CK-MB (CK-2) Troponin I Urine Color Yellow Urine Appearance Clear Urine pH 5.5 Ur Specific [place] 1.018 Urine Protein 1+ H Urine Glucose (UA) Negative Urine Ketones Negative Urine Blood 3+ H Urine Nitrite Negative Urine Bilirubin Negative Urine Urobilinogen 0.2 Ur Leukocyte Esterase Negative Urine WBC (Auto) 1 Urine RBC (Auto) 1 Urine Casts (Auto) 4 U Epithel Cells (Auto) 3.1 Urine Bacteria (Auto) 23.0 Influenza A (Rapid) Influenza B (Rapid) Active Medications Home Medications Medication Instructions Recorded NK [No Known Home Medication] 10/05/19 Current Medications Heparin Sodium (Porcine) (Heparin -) 5,000 unit SQ Q8H-IV [facility] Last Admin: 10/06/19 10:47 Dose: 5,000 unit Sodium Chloride (Normal Saline -) 1,000 mls @ 200 mls/hr IV ASDIR [facility] Last Admin: 10/06/19 14:38 Dose: 200 mls/hr ASSESSMENT/PLAN: Pt. is a 24 y.o. F w/o PMHx. who presents with progressive muscle weakness over the last month. Pt. states that she was taking care of errands in the house when she collapsed, because of lower extremity weakness. #Progressive Muscle Weakness likely secondary to rhabdomyolsis CPK: 14,000+, LDH 1,600+ will give aggressive IVF and trend CPK daily f/u ESR and CRP Pt. denies increased physical activity in addition to the progressive nature of her illness, moderate supsicion for inflammatory myopathy Will monitor for signs of compartment syndrome Pt. has elevated TSH: 6.00, however normal levels of T3 and T4, likely subclinical hypothyroidism. Lower on the differential to be the causative agent. f/u Influenza swab f/u Lyme serology #Tropinemia abdirizak 2/2 to rhabdomyolysis Troponins plateaued, will continue to trend f/u Echo as EKG shows TWI in septal leads and T-wave flattening in V3, with associated dyspnea on exertion after 1 block Cardiology consult to Dr. Howard appreciated. #Transaminitis likes 2/2 to rhabdomyolysis will c/w trend Abd. US shows only shows mild diffuse hepatic steatosis #FEN NS @ 200, will encourage PO intake as well monitor electrolytes and replete as needed Regular Diet #DVT Ppx. Hep SQ ATTENDING PHYSICIAN STATEMENT I saw and evaluated the patient. I reviewed the resident's note and discussed the case with the resident. I agree with the resident's findings and plan as documented. SUBJECTIVE: OBJECTIVE: ASSESSMENT AND PLAN:
--- NOTE | 2019-10-06 18:36 | PN ---
Teaching Attending Note Name of Resident: Reynold Edwards ATTENDING PHYSICIAN STATEMENT I saw and evaluated the patient. I reviewed the resident's note and discussed the case with the resident. I agree with the resident's findings and plan as documented. SUBJECTIVE: Patient is a 24yo female presented with proximal lower exteremity weakness, unable to ambulate. Vital Signs Temperature 98.6 F 10/06/19 14:00 Pulse Rate 91 H 10/06/19 14:00 Respiratory Rate 18 10/06/19 14:00 Blood Pressure 132/75 10/06/19 14:00 O2 Sat by Pulse Oximetry (%) 100 10/06/19 08:45 OBJECTIVE: GENERAL: The patient is awake, alert, and fully oriented, in no acute distress. HEAD: Normal with no signs of trauma. EYES: PERRL, extraocular movements intact, sclera anicteric, conjunctiva clear. ENT: Ears normal, oropharynx clear without exudates, moist mucous membranes. NECK: Trachea midline, full range of motion, supple. LUNGS: Breath sounds equal, clear to auscultation bilaterally, no wheezes, no crackles, no accessory muscle use. HEART: Regular rate and rhythm, S1, S2 without murmur, rub or gallop. ABDOMEN: Soft, nontender, nondistended, normoactive bowel sounds, no guarding, no rebound, no hepatosplenomegaly, no masses. EXTREMITIES: 2+ pulses, warm, well-perfused, no edema. NEUROLOGICAL: Cranial nerves II through XII grossly intact. Normal speech, gait not observed. PSYCH: Normal mood, normal affect. SKIN: Warm, dry, normal turgor, no rashes or lesions noted CBCD WBC 10.5 K/mm3 (4.0-10.0) H 10/05/19 03:50 RBC 4.70 M/mm3 (3.60-5.2) 10/05/19 03:50 Hgb 11.8 GM/dL (10.7-15.3) 10/05/19 03:50 Hct 36.6 % (32.4-45.2) 10/05/19 03:50 MCV 77.9 fl (80-96) L 10/05/19 03:50 MCHC 32.2 g/dl (32.0-36.0) 10/05/19 03:50 RDW 16.2 % (11.6-15.6) H 10/05/19 03:50 Plt Count 441 K/MM3 (134-434) H 10/05/19 03:50 MPV 7.6 fl (7.5-11.1) 10/05/19 03:50 CMP Sodium 138 mmol/L (136-145) 10/05/19 03:50 Potassium 3.6 mmol/L (3.5-5.1) 10/05/19 03:50 Chloride 104 mmol/L (98-107) 10/05/19 03:50 Carbon Dioxide 27 mmol/L (21-32) 10/05/19 03:50 Anion Gap 7 MMOL/L (8-16) L 10/05/19 03:50 BUN 7.5 mg/dL (7-18) 10/05/19 03:50 Creatinine 0.5 mg/dL (0.55-1.3) L 10/05/19 03:50 Random Glucose 103 mg/dL (74-106) 10/05/19 03:50 Calcium 8.9 mg/dL (8.5-10.1) 10/05/19 03:50 Total Bilirubin 0.3 mg/dL (0.2-1) 10/05/19 03:50 AST 603 U/L (15-37) H 10/05/19 03:50 ALT 394 U/L (13-61) H 10/05/19 03:50 Alkaline Phosphatase 41 U/L (45-117) L 10/05/19 03:50 Total Protein 7.9 g/dl (6.4-8.2) 10/05/19 03:50 Albumin 3.5 g/dl (3.4-5.0) 10/05/19 03:50 CARDIAC ENZYMES Creatine Kinase > 80229 U/L (26-192) H 10/05/19 16:00 Troponin I 0.29 ng/ml (0.00-0.05) H 10/05/19 20:27 Current Medications Generic Name Dose Route Start Last Admin Trade Name Freq PRN Reason Stop Dose Admin Heparin Sodium (Porcine) 5,000 unit 10/05/19 10:00 10/06/19 10:47 Heparin - SQ 5,000 unit Q8H-IV JESSI Administration Sodium Chloride 1,000 mls @ 200 mls/hr 10/05/19 12:49 10/06/19 14:38 Normal Saline - IV 200 mls/hr ASDIR JESSI Administration Home Medications Medication Instructions Recorded NK [No Known Home Medication] 10/05/19 Laboratory Tests 10/05/19 10/05/19 10/05/19 03:50 03:50 10:50 Hemoglobin A1c % Creatine Kinase > 92256 H CK-MB (CK-2) 210.5 H Troponin I C-Reactive Protein Triglycerides Cholesterol Total LDL Cholesterol HDL Cholesterol Serum Folate TSH 6.07 H Free T4 1.13 Free T3 4.0 Resin T3 Uptake 35.0 10/05/19 10/05/19 10/05/19 10:50 10:50 10:50 Hemoglobin A1c % 5.0 Creatine Kinase > 50325 H CK-MB (CK-2) 210.5 H Troponin I C-Reactive Protein 1.9 H Triglycerides 355 H Cholesterol 176 Total LDL Cholesterol 95 HDL Cholesterol 30 L Serum Folate 19 H TSH Free T4 Free T3 Resin T3 Uptake 10/05/19 10/05/19 16:00 20:27 Hemoglobin A1c % Creatine Kinase > 61139 H CK-MB (CK-2) 247.6 H Troponin I 0.28 H 0.29 H C-Reactive Protein Triglycerides Cholesterol Total LDL Cholesterol HDL Cholesterol Serum Folate TSH Free T4 Free T3 Resin T3 Uptake Abd. US shows only shows mild diffuse hepatic steatosis ASSESSMENT AND PLAN: Pt. is a 24 y.o. F with no PMHx. who presents with progressive muscle weakness over the last month. Patient stated that she was running some errands in the house when she collapsed, because of proximal lower extremity weakness. #Acute Progressive lower Muscle Weakness with cpk level continues to be over > 14K, cpk every 6 hrs, ivf 200cc/hr, nephro consult. Tsh level is 6.0 , ft4 ordered,lyme ordered , flu is neagtive, drug screen is negative, #Acute Rhabdo. the cause is unknown so far , continue IVF 200cc/hr , nephro on the case #Tropinemia : likley due to rhabdomyolysis; Initial 0.29 will trend and repeat EKG to r/o dynamic changes f/u Echo as EKG shows TWI in septal leads and T-wave flattening in V3, with associated dyspnea on exertion after 1 block Cardiology consult to Dr. Howard appreciated. #Acute Transaminitis continue IVF , most likely due to rhabdomyolysis DVT Ppx: Hep SQ
[2019-10-06 19:50] LABS: ALBUMIN 2.7 g/dl (3.4-5.0); CREATININE 0.4 mg/dL (0.55-1.3); POTASSIUM 3.4 mmol/L (3.5-5.1)
[2019-10-06 23:37] LABS: ALK PHOS 34 U/L (45-117); ANION GAP 8 MMOL/L (8-16); BILIRUBIN,TOTAL 0.3 mg/dL (0.2-1); BLOOD UREA NITROGEN 3.9 mg/dL (7-18); CALCIUM 8.1 mg/dL (8.5-10.1); CHLORIDE 110 mmol/L (98-107); CO2 24 mmol/L (21-32); GLUCOSE,RANDOM 93 mg/dL (74-106); SGOT/AST 513 U/L (15-37); SGPT/ALT 311 U/L (13-61); SODIUM 142 mmol/L (136-145); TOT PROT 6.4 g/dl (6.4-8.2)
[2019-10-07] MEDS: HEPARIN NA (PORCINE) 5,000 UNITS/ML 1ML VIAL SQ SCH ×3 (01:55→17:18)
[2019-10-07] MEDS: SODIUM CHLORIDE 1,000 ML IV SCH ×3 (06:13→13:23)
[2019-10-07] MEDS ORDERED: POTASSIUM CHLORIDE TABS 20 MEQ TABLET.ER (FP) PO ONE (06:40)
--- NOTE | 2019-10-07 07:13 | PN ---
Progress Note, Physician Chief Complaint: Pt A&Ox3; no chest pain; feels weak. History of Present Illness: SHe was reported crying initially in ER, frustrated over not knowing what was going on with her health. PMhx of breast reduction and abdominoplasty (in [place]; 2014), BL lens placement and removal presenting following a fall. She states she was cleaning and getting ready to take out trash when her legs gave out and she fell down forward on to her knees and her face brushed against the ground. She was not able to get herself up off the floor due to feeling weak. She was on the ground for 25min before EMS came to help. She reports worsening weakness since 2018. She reports proximal muscle distribution of the weakness in her hip flexors and deltoids. She reports weakness is more prominent when walking up the stairs, getting up out of bed, reaching above head, getting off toilet. She states her weakness is worse near the end of a flight of stairs. She also reports muscle soreness in the proximal muscle distribution. She reports SOB and increased WOB when walking long distances. She denies recent travel, camping , hikinh, lifting, exercise, fever, chills, rash, chest pain, GARCIA, LH, dizziness , dysuria. Hx weakness since July,. 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 Lives in her own apt in [facility] [place]; prepares her own food; eats well. No cigarettes or alcohol. Reportedly crying initially in ER, frustrated over not knowing what was going on with her health. PMHx: as noted above ROS: as noted SHx: Denies tobacco use; no alcohol use; no rec drugs Allergies: NKDA Denies family hx of CAD or CVA. - Current Medication List Current Medications: Active Medications Heparin Sodium (Porcine) (Heparin -) 5,000 unit SQ Q8H-IV JESSI Last Admin: 10/07/19 01:55 Dose: 5,000 unit Sodium Chloride (Normal Saline -) 1,000 mls @ 200 mls/hr IV ASDIR JESSI Last Admin: 10/07/19 06:13 Dose: 200 mls/hr Potassium Chloride (K-Dur -) 40 meq PO ONCE ONE Stop: 10/07/19 06:41 - Objective Vital Signs: Vital Signs Temperature 99.4 F 10/07/19 02:00 Pulse Rate 98 H 10/07/19 02:00 Respiratory Rate 18 10/07/19 02:00 Blood Pressure 143/86 10/07/19 02:00 O2 Sat by Pulse Oximetry (%) 100 10/06/19 22:00 Constitutional: Yes: Anxious, Other (overweight) Eyes: Yes: WNL HENT: Yes: Nasal Congestion Neck: Yes: WNL Cardiovascular: Yes: WNL Respiratory: Yes: WNL Gastrointestinal: Yes: WNL ...Rectal Exam: Yes: Deferred Genitourinary: Yes: WNL Breast(s): Yes: WNL Musculoskeletal: Yes: Joint Stiffness, Muscle Weakness Extremities: Yes: Cool, Other (left knee mildly swolen, hyperpigmented at site of fall, with small scab left thigh has large tatoo) Edema: Yes Edema: LLE: Trace, RLE: Trace Peripheral Pulses WNL: Yes Integumentary: Yes: Other (see "extremities") Neurological: Yes: Alert, Oriented, Weakness Psychiatric: Yes: Alert, Oriented, Other (anxiety/depression) Labs: CBC, BMP 10/05/19 03:50 10/06/19 18:30 INR, PTT INR 1.07 (0.83-1.09) 10/05/19 03:50 Abnormal Lab Results 10/06/19 10/06/19 10/07/19 10:48 18:30 07:20 Potassium 3.4 L 3.4 L Chloride 110 H 111 H Anion Gap 5 L BUN 3.9 L 3.6 L Creatinine 0.4 L 0.3 L Calcium 8.1 L 8.0 L Magnesium 1.7 L AST 513 H 478 H ALT 311 H 277 H Alkaline Phosphatase 34 L 29 L Creatine Kinase > 46710 H > 31130 H CK-MB (CK-2) 407.2 H 327.5 H Total Protein 5.8 L Albumin 2.7 L 2.4 L Urine Protein 1+ H Urine Blood 3+ H - ....Imaging Chest X-ray: Image Reviewed Ultrasound: Report Reviewed (ECHO: normal LVEF; normal chamber sizes) EKG: Image Reviewed Problem List - Problems (1) Hypokalemia Assessment/Plan: f/u after repletion; keep K 4.0-4.5 F/u Mg, PO4. Code(s): E87.6 - HYPOKALEMIA (2) Anxiety about health Code(s): F41.8 - OTHER SPECIFIED ANXIETY DISORDERS (3) Elevated troponin Code(s): R79.89 - OTHER SPECIFIED ABNORMAL FINDINGS OF BLOOD CHEMISTRY (4) Proximal muscle weakness Assessment/Plan: Pt has great trouble lifting her legs even an inch above the bed, and cannot bend her knees without difficulty. The weakness has been ongoing for months, and affects the thighs and shoulders/upper arms primarily. She has had "exzema" for the past few years (never saw a track supervisor), affecting the hands (mostly the palms), knees, and sometims patches on her chest and trunk. Apart from knee injury from the fall (which she says she was able to partially break the fall, causing less direct impact), she has had no other trauma. She denies recent viral illness; denies HIV from test done "long ago" (she wishes to be tested again). R/o inflammatory myopathy/myositis Workup may include blood work for autoAbs, e.g. antisynthetase Ab, myositis specific AAb, anti Mi2, anti SRP), EMG, search for viral origin; biopsy. Code(s): M62.81 - MUSCLE WEAKNESS (GENERALIZED) (5) Rhabdomyolysis Assessment/Plan: f/u CK, TNI (am results pending). Etiology unclear. Pt denies illicit medications, home remedies, Code(s): M62.82 - RHABDOMYOLYSIS (6) Transaminitis Code(s): R74.0 - NONSPEC ELEV OF LEVELS OF TRANSAMNS & LACTIC ACID DEHYDRGNSE (7) Anxiety and depression Assessment/Plan: Pt says she has become depressed since entering university. She expresses interest in talking with a psychiatrist. Code(s): F41.9 - ANXIETY DISORDER, UNSPECIFIED; F32.9 - MAJOR DEPRESSIVE DISORDER, SINGLE EPISODE, UNSPECIFIED
[2019-10-07 09:49] LABS: ALBUMIN 2.4 g/dl (3.4-5.0); ALK PHOS 29 U/L (45-117); ANION GAP 5 MMOL/L (8-16); BILIRUBIN,TOTAL 0.3 mg/dL (0.2-1); BLOOD UREA NITROGEN 3.6 mg/dL (7-18); CHLORIDE 111 mmol/L (98-107); CO2 25 mmol/L (21-32); CREATININE 0.3 mg/dL (0.55-1.3); GLUCOSE,RANDOM 87 mg/dL (74-106); MAGNESIUM 1.7 mg/dL (1.8-2.4); PHOSPHOROUS 3.9 mg/dL (2.5-4.9); POTASSIUM 3.4 mmol/L (3.5-5.1); SGOT/AST 478 U/L (15-37); SGPT/ALT 277 U/L (13-61); SODIUM 141 mmol/L (136-145); TOT PROT 5.8 g/dl (6.4-8.2)
[2019-10-07] MEDS ORDERED: MAGNESIUM SULF 50% (8.12 MEQ/2 ML-1 GM VIAL) IVPB ONE (09:58)
--- NOTE | 2019-10-07 11:28 | EKG ---
Test Reason : Blood Pressure : / mmHG Vent. Rate : 095 BPM Atrial Rate : 095 BPM P-R Int : 158 ms QRS Dur : 074 ms QT Int : 344 ms P-R-T Axes : 069 060 033 degrees QTc Int : 432 ms NORMAL SINUS RHYTHM NONSPECIFIC T WAVE ABNORMALITY ABNORMAL ECG WHEN COMPARED WITH ECG OF 05-OCT-2019 14:52, NO SIGNIFICANT CHANGE WAS FOUND Confirmed by Samuel Steward MD ([id number]) on 10/07/2019 11:28:10 AM Referred By: LANCE RUEDA Confirmed By:Samuel Steward MD
--- NOTE | 2019-10-07 11:36 | PN ---
Progress Note, Physician History of Present Illness: Pt seen and examined at bedside. She still has muscle pain and weakness. - Current Medication List Current Medications: Active Medications Heparin Sodium (Porcine) (Heparin -) 5,000 unit SQ Q8H-IV JESSI Last Admin: 10/07/19 09:51 Dose: 5,000 unit Sodium Chloride (Normal Saline -) 1,000 mls @ 200 mls/hr IV ASDIR JESSI Last Admin: 10/07/19 10:51 Dose: 200 mls/hr - Objective Vital Signs: Vital Signs Temperature 98 F 10/07/19 10:00 Pulse Rate 96 H 10/07/19 10:00 Respiratory Rate 18 10/07/19 10:00 Blood Pressure 127/66 10/07/19 10:00 O2 Sat by Pulse Oximetry (%) 100 10/06/19 22:00 Constitutional: Yes: Calm Eyes: Yes: Conjunctiva Clear HENT: Yes: Atraumatic Neck: Yes: Supple Cardiovascular: Yes: S1, S2 Respiratory: Yes: CTA Bilaterally Gastrointestinal: Yes: Normal Bowel Sounds, Soft Genitourinary: Yes: WNL Musculoskeletal: Yes: Muscle Weakness Edema: No Neurological: Yes: Oriented Psychiatric: Yes: Oriented Labs: CBC, BMP 10/05/19 03:50 10/07/19 07:20 INR, PTT INR 1.07 (0.83-1.09) 10/05/19 03:50 Problem List - Problems (1) Rhabdomyolysis Code(s): M62.82 - RHABDOMYOLYSIS Assessment/Plan Current Medications Generic Name Dose Route Start Last Admin Trade Name Parker PRN Reason Stop Dose Admin Heparin Sodium (Porcine) 5,000 unit 10/05/19 10:00 10/07/19 09:51 Heparin - SQ 5,000 unit Q8H-IV JESSI Administration Sodium Chloride 1,000 mls @ 200 mls/hr 10/05/19 12:49 10/07/19 10:51 Normal Saline - IV 200 mls/hr ASDIR JESSI Administration Impression 1. rhabdo 2. hematuria 3. proteinuria 4. transaminitis 5. hypokalemia Plan - cont fluids - repeat labs in am - cpk remains elevated, [place] [address], they will try to get a level - called and spoke to rheum, they will see her today - repeat ua - monitor lfts
--- NOTE | 2019-10-07 13:53 | CONSULT ---
Consult Consult Specialty:: Rheumatology - History of Present Illness History of Present Illness: 24 year old female with no relevant past medical history admitted with progressive muscle weakness and elevated CP{K. HPI. On May 2019 the patient noticed mild difficulty in climbing stairs and was otherwise asymptomatic. She had progressive weakness and 2 months later she had great difficulty in climbing starts or to stand up from a sitting position. She had mild SOB and also had difficulty in raising objects above her shoulders. On August 2019 she avoided stairs as she could not climb them. She reports a penitentiary history of eczema in hands and denies other skin rash. She denies cough, joint pain or fever. On admission CK >56206, AST 513, ALT 311 and Alk. p 34, Urinalysis protein 1+ and Blood 3+ (The patient ended her menstrual period 2 days ago). - History Source History Provided By: Patient, Medical Record - Past Medical History ...: No - Alcohol/Substance Use Hx Alcohol Use: No - Smoking History Smoking history: Never smoked Have you smoked in the past 12 months: No Home Medications - Allergies Allergies/Adverse Reactions: Allergies Allergy/AdvReac Type Severity Reaction Status Date / Time No Known Allergies Allergy Verified 10/05/19 02:57 - Home Medications Home Medications: Ambulatory Orders NK [No Known Home Medication] 10/05/19 Review of Systems - Review of Systems Constitutional: reports: Malaise, Weakness Eyes: reports: No Symptoms HENT: reports: No Symptoms Neck: reports: No Symptoms Cardiovascular: reports: No Symptoms Respiratory: reports: SOB Gastrointestinal: reports: No Symptoms Genitourinary: reports: No Symptoms Musculoskeletal: reports: Muscle Weakness, Other (See HPI) Physical Exam Vital Signs: Vital Signs Temperature 98 F 10/07/19 10:00 Pulse Rate 96 H 10/07/19 10:00 Respiratory Rate 18 10/07/19 10:00 Blood Pressure 127/66 10/07/19 10:00 O2 Sat by Pulse Oximetry (%) 100 10/07/19 09:00 Constitutional: Yes: Mild Distress Eyes: Yes: WNL HENT: Yes: WNL Neck: Yes: WNL Cardiovascular: Yes: WNL Respiratory: Yes: WNL Gastrointestinal: Yes: WNL Musculoskeletal: Yes: Other (No active joints., Significant proximal muscle weakness involving flexors of the neck, and proximal muscles of upper and lower limbs. Lining Finisher strength was normal.) Labs: CBC, BMP 10/05/19 03:50 10/07/19 07:20 Laboratory Tests 10/05/19 10/05/19 10/05/19 03:50 09:20 10:50 ESR 24 H Calcium Phosphorus Magnesium Total Bilirubin AST ALT Creatine Kinase Total Protein Albumin Triglycerides 355 H Cholesterol 176 Total LDL Cholesterol 95 HDL Cholesterol 30 L Serum Folate 19 H Urine pH Ur Specific [place] Urine Protein Urine Glucose (UA) Urine Ketones Urine Blood Urine Nitrite Urine Bilirubin Urine Urobilinogen Ur Leukocyte Esterase Urine WBC (Auto) Urine RBC (Auto) Urine Casts (Auto) U Epithel Cells (Auto) Lyme Screen IgG & IgM <0.91 10/05/19 10/06/19 10/06/19 16:00 10:48 18:30 ESR Calcium Phosphorus Magnesium Total Bilirubin AST ALT Creatine Kinase > 29094 H > 47571 H Total Protein Albumin Triglycerides Cholesterol Total LDL Cholesterol HDL Cholesterol Serum Folate Urine pH 5.5 Ur Specific [place] 1.018 Urine Protein 1+ H Urine Glucose (UA) Negative Urine Ketones Negative Urine Blood 3+ H Urine Nitrite Negative Urine Bilirubin Negative Urine Urobilinogen 0.2 Ur Leukocyte Esterase Negative Urine WBC (Auto) 1 Urine RBC (Auto) 1 Urine Casts (Auto) 4 U Epithel Cells (Auto) 3.1 Lyme Screen IgG & IgM 10/07/19 07:20 ESR Calcium 8.0 L Phosphorus 3.9 Magnesium 1.7 L Total Bilirubin 0.3 AST 478 H ALT 277 H Creatine Kinase > 10982 H Total Protein 5.8 L Albumin 2.4 L Triglycerides Cholesterol Total LDL Cholesterol HDL Cholesterol Serum Folate Urine pH Ur Specific [place] Urine Protein Urine Glucose (UA) Urine Ketones Urine Blood Urine Nitrite Urine Bilirubin Urine Urobilinogen Ur Leukocyte Esterase Urine WBC (Auto) Urine RBC (Auto) Urine Casts (Auto) U Epithel Cells (Auto) Lyme Screen IgG & IgM Problem List - Problems (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 Hematuria in urinalysis probably related to her period, It is unlikely that she has lupsu. Plan: Solumedrol 30 mg IV BID, Methotrextae 15 mg PO once per week, Folic acid 1 mg/d Consults to Dr. Liao for EMG and Dr. Norman for muscle biopsy. The laboratory sent out samples of CK for quantification. Code(s): M33.20 - POLYMYOSITIS, ORGAN INVOLVEMENT UNSPECIFIED
[2019-10-07] MEDS ORDERED: METHOTREXATE 2.5 MG TABLET PO SCH (14:00)
--- NOTE | 2019-10-07 14:25 | PN ---
Teaching Attending Note Name of Resident: Maximino Meraz ATTENDING PHYSICIAN STATEMENT I saw and evaluated the patient. I reviewed the resident's note and discussed the case with the resident. I agree with the resident's findings and plan as documented. SUBJECTIVE: Patient continues to feel weak. Unable to OBJECTIVE: Vital Signs Temperature 98 F 10/07/19 10:00 Pulse Rate 96 H 10/07/19 10:00 Respiratory Rate 18 10/07/19 10:00 Blood Pressure 127/66 10/07/19 10:00 O2 Sat by Pulse Oximetry (%) 100 10/07/19 09:00 GENERAL: The patient is awake, alert, and fully oriented, in no acute distress. HEAD: Normal with no signs of trauma. EYES: PERRL, extraocular movements intact, sclera anicteric, conjunctiva clear. ENT: Ears normal, oropharynx clear without exudates, moist mucous membranes. NECK: Trachea midline, full range of motion, supple. LUNGS: Breath sounds equal, clear to auscultation bilaterally, no wheezes, no crackles, no accessory muscle use. HEART: Regular rate and rhythm, S1, S2 without murmur, rub or gallop. ABDOMEN: Soft, nontender, nondistended, normoactive bowel sounds, no guarding, no rebound, no hepatosplenomegaly, no masses. EXTREMITIES: 2+ pulses, warm, well-perfused, no edema. NEUROLOGICAL: Cranial nerves II through XII grossly intact. Normal speech, gait not observed. PSYCH: Normal mood, normal affect. SKIN: Warm, dry, normal turgor, no rashes or lesions noted CBCD WBC 10.5 K/mm3 (4.0-10.0) H 10/05/19 03:50 RBC 4.70 M/mm3 (3.60-5.2) 10/05/19 03:50 Hgb 11.8 GM/dL (10.7-15.3) 10/05/19 03:50 Hct 36.6 % (32.4-45.2) 10/05/19 03:50 MCV 77.9 fl (80-96) L 10/05/19 03:50 MCHC 32.2 g/dl (32.0-36.0) 10/05/19 03:50 RDW 16.2 % (11.6-15.6) H 10/05/19 03:50 Plt Count 441 K/MM3 (134-434) H 10/05/19 03:50 MPV 7.6 fl (7.5-11.1) 10/05/19 03:50 CMP Sodium 141 mmol/L (136-145) 10/07/19 07:20 Potassium 3.4 mmol/L (3.5-5.1) L 10/07/19 07:20 Chloride 111 mmol/L (98-107) H 10/07/19 07:20 Carbon Dioxide 25 mmol/L (21-32) 10/07/19 07:20 Anion Gap 5 MMOL/L (8-16) L 10/07/19 07:20 BUN 3.6 mg/dL (7-18) L 10/07/19 07:20 Creatinine 0.3 mg/dL (0.55-1.3) L 10/07/19 07:20 Random Glucose 87 mg/dL (74-106) 10/07/19 07:20 Calcium 8.0 mg/dL (8.5-10.1) L 10/07/19 07:20 Total Bilirubin 0.3 mg/dL (0.2-1) 10/07/19 07:20 AST 478 U/L (15-37) H 10/07/19 07:20 ALT 277 U/L (13-61) H 10/07/19 07:20 Alkaline Phosphatase 29 U/L (45-117) L 10/07/19 07:20 Total Protein 5.8 g/dl (6.4-8.2) L 10/07/19 07:20 Albumin 2.4 g/dl (3.4-5.0) L 10/07/19 07:20 CARDIAC ENZYMES Creatine Kinase > 05568 U/L (26-192) H 10/07/19 07:20 Troponin I 0.29 ng/ml (0.00-0.05) H 10/05/19 20:27 Current Medications Generic Name Dose Route Start Last Admin Trade Name Freq PRN Reason Stop Dose Admin Folic Acid 1 mg 10/08/19 10:00 Folic Acid - PO DAILY JESSI Heparin Sodium (Porcine) 5,000 unit 10/05/19 10:00 10/07/19 09:51 Heparin - SQ 5,000 unit Q8H-IV JESSI Administration Sodium Chloride 1,000 mls @ 200 mls/hr 10/05/19 12:49 10/07/19 13:23 Normal Saline - IV Not Given ASDIR JESSI Methotrexate 15 mg 10/07/19 14:00 Mexate - PO Q7D JESSI Methylprednisolone Sodium Succinate 30 mg 10/07/19 22:00 Solu-Medrol - IVPUSH BID JESSI Home Medications Medication Instructions Recorded NK [No Known Home Medication] 10/05/19 Laboratory Tests 10/05/19 10/05/19 10/05/19 03:50 03:50 10:50 Hemoglobin A1c % Creatine Kinase > 84221 H CK-MB (CK-2) 210.5 H Troponin I C-Reactive Protein Triglycerides Cholesterol Total LDL Cholesterol HDL Cholesterol Serum Folate TSH 6.07 H Free T4 1.13 Thyroxine (T4) 10.8 Free T3 4.0 Resin T3 Uptake 35.0 10/05/19 10/05/19 10/05/19 10:50 10:50 10:50 Hemoglobin A1c % 5.0 Creatine Kinase > 20083 H CK-MB (CK-2) 210.5 H Troponin I C-Reactive Protein 1.9 H Triglycerides 355 H Cholesterol 176 Total LDL Cholesterol 95 HDL Cholesterol 30 L Serum Folate 19 H TSH Free T4 Thyroxine (T4) Free T3 Resin T3 Uptake 10/05/19 10/05/19 16:00 20:27 Hemoglobin A1c % Creatine Kinase > 97173 H CK-MB (CK-2) 247.6 H Troponin I 0.28 H 0.29 H C-Reactive Protein Triglycerides Cholesterol Total LDL Cholesterol HDL Cholesterol Serum Folate TSH Free T4 Thyroxine (T4) Free T3 Resin T3 Uptake ASSESSMENT AND PLAN: Patient is a 24 year old female with no significant PMHx except breast implants and tummy tuck admitted with progressive muscle weakness and elevated CPK of > 14K. Probable polymyositis: presented with acute Progressive lower Muscle Weakness with cpk level continues to be over >14K, cpk every 6 hrs, ivf 200cc/hr, nephro consult. Tsh level is 6.0 , ft4 ordered, lyme ordered , flu is negative , drug screen is negative, Dr wei consulted, discussed with most likely polymyositis. started on iv Solumedrol 30 mg IV BID, Methotrextae 15 mg PO once per week, Folic acid 1 mg/d Consults to Dr. Liao for EMG and Dr. Norman for muscle biopsy. The laboratory sent out samples of CK for quantification. [facility] was consulted since she feels down at times. #Acute Rhabdo. the cause is unknown so far , continue IVF 200cc/hr , nephro on the case #Tropinemia : likley due to rhabdomyolysis; Initial 0.29 will trend and repeat EKG to r/o dynamic changes f/u Echo as EKG shows TWI in septal leads and T-wave flattening in V3, with associated dyspnea on exertion after 1 block Cardiology consult to Dr. Howard appreciated. #Acute Transaminitis continue IVF , most likely due to rhabdomyolysis DVT Ppx: Hep SQ continue to follow cpk level ,keep hydrating the patient.
--- NOTE | 2019-10-07 15:04 | CON.PSL ---
Psychology Consult Consult Specialty:: Clinical Psychology Reason for Consultation:: Pt. was asked to be consulted on Stress and blunted affect. History Provided By: Patient Limitations to Obtaining History: No Limitations Current Medications: Active Medications Folic Acid (Folic Acid -) 1 mg PO DAILY JESSI Heparin Sodium (Porcine) (Heparin -) 5,000 unit SQ Q8H-IV JESSI Last Admin: 10/07/19 09:51 Dose: 5,000 unit Sodium Chloride (Normal Saline -) 1,000 mls @ 200 mls/hr IV ASDIR JESSI Last Admin: 10/07/19 13:23 Dose: Not Given Methotrexate (Mexate -) 15 mg PO Q7D JESSI Methylprednisolone Sodium Succinate (Solu-Medrol -) 30 mg IVPUSH BID JESSI Allergies: Allergies Allergy/AdvReac Type Severity Reaction Status Date / Time No Known Allergies Allergy Verified 10/05/19 02:57 Does patient have pain?: No Hx Alcohol Use: No Hx Substance Use: No Hx Substance Use Treatment: No Current Medical Exam-Psy Attention: Alert Orientation: Time, Person, Place Expressive: Coherent Receptive: Age Appropriate Comprehension of Spoken Words Hallucinations: Absent Thought Process: Intact Hopelessness: No Loss of Interest: No Anxiety Level: Moderate Danger to Self and Others: No Sleep: Well Appetite: Good Support System: Family (She tends to s) Leisure activities: Other (She tends to stay to herself as she does not live in the dorm and does not have the opportunity to meet people socially per her explanation.) Problem List - Problem (1) Dysthymia Code(s): F34.1 - DYSTHYMIC DISORDER (2) Stress and adjustment reaction Code(s): F43.29 - ADJUSTMENT DISORDER WITH OTHER SYMPTOMS Assessment/Plan Jerri is a very well spoken young lady who is 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 She did not appear to be experiencing a major depression but admitted to a intermediate history of feeling down at times for unknown reasons. She has four siblings and both her parents are well. She stated that she gets along with her family as most people do. Although formal memory testing and examination of her concentration were not performed, she was quite capable at recalling a recent dream and being able to discuss it in relevant detail. Her memory and concentration were evidently uncompromised. Much of her current stress is attributed to her academics and what career or profession she should pursue after graduation. We discussed the possibility of getting stress management interventions to help her cope. However, career counseling would be of particular benefit to address her uncertainty and stress associated with her future endeavors. She was advised to consider outpatient counseling upon discharge from the hospital to address her long standing dysthymia. She will be seen while she is an inpatient at this facility. Thank you for your kind referral.
[2019-10-07] MEDS ORDERED: PT OWN MED DRAWER 7, Y5N ONE (15:30)
--- NOTE | 2019-10-07 18:40 | PN ---
Physical Exam: SUBJECTIVE: Patient seen and examined NAEON Endorses weakness, improved from yesterday. Says has trouble walking and holding hands overhead OBJECTIVE: Vital Signs Period Temp Pulse Resp BP Sys/Newell Pulse Ox Last 24 Hr 98 F-99.4 F 90-118 18-19 127-143/66-95 100-100 GENERAL: The patient is awake, alert, and fully oriented, in no acute distress. HEAD: Normal with no signs of trauma. EYES: extraocular movements intact, sclera anicteric, conjunctiva clear. No ptosis. ENT: Ears normal, nares patent, oropharynx clear without exudates, moist mucous membranes. No oral ulcers NECK: Trachea midline, full range of motion, supple. Neg cervical LAD LUNGS: Breath sounds equal, clear to auscultation bilaterally, no wheezes, no crackles, no accessory muscle use. HEART: Regular rate and rhythm, S1, S2 without murmur, rub or gallop. ABDOMEN: Soft, nontender, nondistended, normoactive bowel sounds, no guarding, no rebound. EXTREMITIES: 2+ pulses, warm, well-perfused, no edema. NEUROLOGICAL: Cranial nerves II through XII grossly intact. Normal speech. Decreased strength 4/5 flexion/extension of RUE. Decreased flexion/extension of LLE hip PSYCH: flat affect SKIN: Warm, dry, normal turgor, no rashes or lesions noted Laboratory Results - last 24 hr 10/05/19 10/06/19 10/07/19 03:50 18:30 07:20 Sodium 142 141 Potassium 3.4 L 3.4 L Chloride 110 H 111 H Carbon Dioxide 24 25 Anion Gap 8 5 L BUN 3.9 L 3.6 L Creatinine 0.4 L 0.3 L Est GFR (CKD-EPI)AfAm 167.78 184.44 Est GFR (CKD-EPI)NonAf 144.76 159.13 Random Glucose 93 87 Calcium 8.1 L 8.0 L Phosphorus 3.9 Magnesium 1.7 L Total Bilirubin 0.3 0.3 AST 513 H 478 H ALT 311 H 277 H Alkaline Phosphatase 34 L 29 L Creatine Kinase > 18948 H > 99941 H Creatine Kinase Index 0.0 0.0 CK-MB (CK-2) 407.2 H 327.5 H Total Protein 6.4 5.8 L Albumin 2.7 L 2.4 L Lyme Screen IgG & IgM <0.91 Active Medications Generic Name Dose Route Start Last Admin Trade Name Parker PRN Reason Stop Dose Admin Folic Acid 1 mg 10/08/19 10:00 Folic Acid - PO DAILY JESSI Heparin Sodium (Porcine) 5,000 unit 10/05/19 10:00 10/07/19 17:18 Heparin - SQ 5,000 unit Q8H-IV JESSI Administration Sodium Chloride 1,000 mls @ 200 mls/hr 10/05/19 12:49 10/07/19 13:23 Normal Saline - IV Not Given ASDIR JESSI Methotrexate 15 mg 10/07/19 14:00 10/07/19 15:31 Mexate - PO 15 mg Q7D JESSI Administration Methylprednisolone Sodium Succinate 30 mg 10/07/19 22:00 Solu-Medrol - IVPUSH BID JESSI ASSESSMENT/PLAN: 24 y.o. F w/o PMHx. who presents with progressive muscle weakness over the last month. Pt. states that she was taking care of errands in the house when she collapsed, because of lower extremity weakness. Denied extensive physical activity, drug usage. 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 Admitted for rhabdomylosis. Rheum onboard, rec solumedrol, methotrexate, folic acid. Plan for muscle bx. #Progressive Muscle Weakness --likely secondary to rhabdomyolsis of uknown etiology, possibly 2/2 rheum-related muscle pathology > CPK: 14,000+, LDH 1,600+ > ESR 24, CRP 1.9 will give aggressive IVF and trend CPK daily > TSH 6.0, T4 1.13, T3 4.0 --likely subclinical hypothyroidism. 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 Liao for EMG --Dr. Norman for muscle biopsy #Tropinemia --likley 2/2 to rhabdomyolysis > Troponin 0.29, 0.3, 0.28, 0.29 > EKG: TWI in septal leads and T-wave flattening in V3, with associated dyspnea on exertion after 1 block > Echo(10/06/19): LVEF 65-70% -Cardiology consult to Dr. Howard: --electrolyte repletion --[facility]ina inflamm myopathy/myositis --fu CK, TNI --rec psych consult for depression #Transaminitis --likely 2/2 to rhabdomyolysis > US Abd: mild diffuse hepatic steatosis -will c/w trend #Depression > Psych([facility]) consult: --likely long standing dysthymia --rec outpt career counseling --will be followed while inpt #FEN -NS @ 200, will encourage PO intake as well -monitor electrolytes and replete as needed -Regular Diet #DVT Ppx. Hep SQ Visit type - Emergency Visit Emergency Visit: No - New Patient This patient is new to me today: No - Critical Care Critical Care patient: No ATTENDING PHYSICIAN STATEMENT I saw and evaluated the patient. I reviewed the resident's note and discussed the case with the resident. I agree with the resident's findings and plan as documented. SUBJECTIVE: OBJECTIVE: ASSESSMENT AND PLAN:
[2019-10-07 18:51] LABS: EPI CELLS 3.4 /HPF (0-5/HPF); HYALINE CASTS 2 /lpf (0-8); URINE APPEARANCE CLEAR; URINE BACTERIA 37.3 /hpf (NEGATIVE); URINE BILIRUBIN NEGATIVE (NEGATIVE); URINE COLOR YELLOW; URINE GLUCOSE (UA) NEGATIVE (NEGATIVE); URINE KETONE NEGATIVE (NEGATIVE); URINE LEUK ESTERASE NEGATIVE (NEGATIVE); URINE NITRITE NEGATIVE (NEGATIVE); URINE PROTEIN TRACE (NEGATIVE); URINE RBC 0 /hpf (0-4); URINE UROBILINOGEN 0.2 mg/dL (0.2-1.0); URINE WBC 1 /hpf (0-5)
[2019-10-07] MEDS: methylPREDNISolone NA SUCC 40 MG/1 ML VIAL IVPUSH SCH (21:01)
[2019-10-07] MEDS: PANTOPRAZOLE 40 MG TABLET PO SCH (21:01)
[2019-10-08] MEDS: HEPARIN NA (PORCINE) 5,000 UNITS/ML 1ML VIAL SQ SCH ×3 (02:23→17:11)
[2019-10-08 07:48] LABS: HEMATOCRIT 30.1 % (32.4-45.2); HEMOGLOBIN 9.8 GM/dL (10.7-15.3); MCH 25.5 pg (25.7-33.7); MCHC 32.7 g/dl (32.0-36.0); PLATELET COUNT 341 K/MM3 (134-434); RBC 3.86 M/mm3 (3.60-5.2); RDW 16.4 % (11.6-15.6); WHITE BLOOD COUNT 10.1 K/mm3 (4.0-10.0)
--- NOTE | 2019-10-08 08:14 | CONSULT ---
- Consultation REQUESTING PROVIDER: Javon Norman CONSULT REQUEST: We have been asked to surgically evaluate this patient for muscle biopsy. PCP: Mckinley Pryor HPI: Called to eval 24yo female without any significant PMHx presents to [facility] ED for evaluation s/p fall. Was in her usual state of good health when she fell yesterday while taking trash out. States she feels like her legs just gave out on her. Unable to get up off the floor secondary to weakness. Denies any CP, palpitations, SOB, dizziness prior too or post fall. Reports worsening weakness since Jul 2019. Proximal muscle distribution of the weakness in her hip flexors and deltoids. More prominent when walking up the stairs, getting up out of bed, reaching above head, getting off toilet. Muscle soreness in the proximal muscle distribution. Denies recent travel, camping, hiking, lifting, exercise, fever, chills, rash, chest pain, GARCIA, LH, dizziness, dysuria. * RLE dominant PMHx: None. PSHx: Breast reduction Abdominoplasty Bilateral lens placement Home Medications: None. Allergies: NKDA ROS: All systems reviewed and considered negative except for what's contained in HPI PE: GENERAL: Awake, alert, and fully oriented, in no acute distress. HEAD: Normal with no signs of trauma. EYES: Pupils equal, round and reactive to light, extraocular movements intact, sclera anicteric, conjunctiva clear. EARS, NOSE, THROAT: Moist mucous membranes. NECK: Normal range of motion, supple without lymphadenopathy, JVD, or masses. LUNGS: Breath sounds equal, clear to auscultation bilaterally. No wheezes, and no crackles. No accessory muscle use. HEART: Regular rate and rhythm, normal S1 and S2, loud 1st heart sound ABDOMEN: Soft, nontender, not distended, normoactive bowel sounds, no guarding, no rebound, no masses. No hepatomegaly or splenomegaly. MUSCULOSKELETAL: Decreased passive ROM 2/2 weakness. No CVA tenderness. UPPER EXTREMITIES: 2+ radial pulses, warm, well-perfused. No cyanosis. No clubbing. No peripheral edema. 3/5 proximal extensor muscle strength, 4/5 proximal flexor muscle strength. 5/5 strenght in all other muscle groups including law clerk strength LOWER EXTREMITIES: 2+ dorsal pedal pulses, warm, well-perfused. No calf tenderness. trace non-pitting edema. 5/5 distal muscle strength. 2/5 flexor muscle strength, 5/5 extensor muscle strength, 5/5 muscle strength in all other muscle groups NEUROLOGICAL: Cranial nerves II-XII grossly intact. Normal speech. Gait not assessed. Sensation in tact throughout. PSYCHIATRIC: Cooperative. Good eye contact. Appropriate mood and affect. SKIN: Warm, dry, normal turgor Vital Signs Temperature 97.1 F L 10/08/19 05:32 Pulse Rate 75 10/08/19 05:32 Respiratory Rate 20 10/08/19 05:32 Blood Pressure 132/71 10/08/19 05:32 O2 Sat by Pulse Oximetry (%) 100 10/07/19 21:00 Lab Results WBC 10.1 K/mm3 (4.0-10.0) H 10/08/19 07:15 RBC 3.86 M/mm3 (3.60-5.2) 10/08/19 07:15 Hgb 9.8 GM/dL (10.7-15.3) L 10/08/19 07:15 Hct 30.1 % (32.4-45.2) L D 10/08/19 07:15 MCV 78.0 fl (80-96) L 10/08/19 07:15 MCHC 32.7 g/dl (32.0-36.0) 10/08/19 07:15 RDW 16.4 % (11.6-15.6) H 10/08/19 07:15 Plt Count 341 K/MM3 (134-434) D 10/08/19 07:15 Sodium 141 mmol/L (136-145) 10/07/19 07:20 Potassium 3.4 mmol/L (3.5-5.1) L 10/07/19 07:20 Chloride 111 mmol/L (98-107) H 10/07/19 07:20 Carbon Dioxide 25 mmol/L (21-32) 10/07/19 07:20 Anion Gap 5 MMOL/L (8-16) L 10/07/19 07:20 BUN 3.6 mg/dL (7-18) L 10/07/19 07:20 Creatinine 0.3 mg/dL (0.55-1.3) L 10/07/19 07:20 Random Glucose 87 mg/dL (74-106) 10/07/19 07:20 Calcium 8.0 mg/dL (8.5-10.1) L 10/07/19 07:20 INR 1.07 (0.83-1.09) 10/05/19 03:50 x Problem List - Problems (1) Proximal muscle weakness Assessment/Plan: 1. Make NPO after midnight 2. GI PPx 3. DVT PPx 4. OR tomorrow for muscle biopsy 5. Medical optimization / clearance Code(s): M62.81 - MUSCLE WEAKNESS (GENERALIZED) (2) Transaminitis Code(s): R74.0 - NONSPEC ELEV OF LEVELS OF TRANSAMNS & LACTIC ACID DEHYDRGNSE (3) Rhabdomyolysis Code(s): M62.82 - RHABDOMYOLYSIS Visit type - Case Type Case Type: ED Admission - New patient This patient is new to me today: Yes Date on this admission: 10/08/19
[2019-10-08 08:39] LABS: ALBUMIN 2.6 g/dl (3.4-5.0); ALK PHOS 31 U/L (45-117); ANION GAP 6 MMOL/L (8-16); BILIRUBIN,TOTAL 0.4 mg/dL (0.2-1); BLOOD UREA NITROGEN 6.3 mg/dL (7-18); CALCIUM 8.4 mg/dL (8.5-10.1); CHLORIDE 110 mmol/L (98-107); CO2 23 mmol/L (21-32); CREATININE 0.3 mg/dL (0.55-1.3); GLUCOSE,RANDOM 110 mg/dL (74-106); POTASSIUM 4.4 mmol/L (3.5-5.1); SGOT/AST 479 U/L (15-37); SGPT/ALT 312 U/L (13-61); SODIUM 139 mmol/L (136-145); TOT PROT 6.2 g/dl (6.4-8.2)
[2019-10-08] MEDS: methylPREDNISolone NA SUCC 40 MG/1 ML VIAL IVPUSH SCH ×2 (09:24→21:28)
[2019-10-08] MEDS: FOLIC ACID 1 MG TABLET (FP) PO SCH (09:24)
[2019-10-08] MEDS: PANTOPRAZOLE 40 MG TABLET PO SCH (09:24)
--- NOTE | 2019-10-08 11:02 | PN ---
Progress Note, Physician History of Present Illness: Pt seen and examined at bedside. She says that she is starting to feel a little better today. She complains of lower ext edema. - Current Medication List Current Medications: Active Medications Folic Acid (Folic Acid -) 1 mg PO DAILY [facility] Last Admin: 10/08/19 09:24 Dose: 1 mg Heparin Sodium (Porcine) (Heparin -) 5,000 unit SQ Q8H-IV [facility] Last Admin: 10/08/19 09:24 Dose: 5,000 unit Sodium Chloride (Normal Saline -) 1,000 mls @ 200 mls/hr IV ASDIR [facility] Last Admin: 10/07/19 13:23 Dose: Not Given Methotrexate (Mexate -) 15 mg PO Q7D [facility] Last Admin: 10/07/19 15:31 Dose: 15 mg Methylprednisolone Sodium Succinate (Solu-Medrol -) 30 mg IVPUSH BID [facility] Last Admin: 10/08/19 09:24 Dose: 30 mg Pantoprazole Sodium (Protonix -) 40 mg PO DAILY [facility] Last Admin: 10/08/19 09:24 Dose: 40 mg - Objective Vital Signs: Vital Signs Temperature 97.1 F L 10/08/19 05:32 Pulse Rate 75 10/08/19 05:32 Respiratory Rate 20 10/08/19 05:32 Blood Pressure 132/71 10/08/19 05:32 O2 Sat by Pulse Oximetry (%) 100 10/07/19 21:00 Constitutional: Yes: Calm Eyes: Yes: Conjunctiva Clear HENT: Yes: Atraumatic Neck: Yes: Supple Cardiovascular: Yes: S1, S2 Respiratory: Yes: CTA Bilaterally Gastrointestinal: Yes: Normal Bowel Sounds, Soft Genitourinary: Yes: WNL Musculoskeletal: Yes: Muscle Weakness Edema: Yes Neurological: Yes: Oriented Psychiatric: Yes: Oriented Labs: CBC, BMP 10/08/19 07:15 10/08/19 07:15 INR, PTT INR 1.07 (0.83-1.09) 10/05/19 03:50 Problem List - Problems (1) Rhabdomyolysis Code(s): M62.82 - RHABDOMYOLYSIS Assessment/Plan Current Medications Generic Name Dose Route Start Last Admin Trade Name Freq PRN Reason Stop Dose Admin Folic Acid 1 mg 10/08/19 10:00 10/08/19 09:24 Folic Acid - PO 1 mg DAILY JESSI Administration Heparin Sodium (Porcine) 5,000 unit 10/05/19 10:00 10/08/19 09:24 Heparin - SQ 5,000 unit Q8H-IV JESSI Administration Sodium Chloride 1,000 mls @ 200 mls/hr 10/05/19 12:49 10/07/19 13:23 Normal Saline - IV Not Given ASDIR JESSI Methotrexate 15 mg 10/07/19 14:00 10/07/19 15:31 Mexate - PO 15 mg Q7D JESSI Administration Methylprednisolone Sodium Succinate 30 mg 10/07/19 22:00 10/08/19 09:24 Solu-Medrol - IVPUSH 30 mg BID JESSI Administration Pantoprazole Sodium 40 mg 10/07/19 20:43 10/08/19 09:24 Protonix - PO 40 mg DAILY JESSI Administration Impression 1. rhabdo 2. hematuria 3. proteinuria 4. transaminitis 5. hypokalemia 6. r/o polymyositis Plan - cont fluids - can give a dose of lasix - replace potassium - monitor lytes closely - follow cpk levels - repeat ua shows decreased protein - pt getting muscle biopsy - monitor lfts
--- NOTE | 2019-10-08 11:34 | PN ---
Progress Note (short form) - Note Progress Note: The patient was administered a hypnosis intervention for stress. She responded well to the treatment and indicated that she felt more relaxed. She appeared to be euthymic and was very receptive to the treatment. The patient reported feeling more relaxed after the intervention and was instructed how to use it on her own as well. Problem List - Problems (1) Dysthymia Code(s): F34.1 - DYSTHYMIC DISORDER (2) Stress and adjustment reaction Code(s): F43.29 - ADJUSTMENT DISORDER WITH OTHER SYMPTOMS
[2019-10-08] MEDS: SODIUM CHLORIDE 1,000 ML IV SCH ×2 (11:41→12:50)
[2019-10-08] MEDS ORDERED: POTASSIUM CHLORIDE TABS 20 MEQ TABLET.ER (FP) PO ONE (13:35)
[2019-10-08] MEDS ORDERED: FUROSEMIDE 20 MG TABLET (FP) PO ONE (13:35)
--- NOTE | 2019-10-08 14:02 | CONSULT ---
Consult Consult Specialty:: PM&R Dr Hidalgo for Dr Liao Reason for Consultation:: Electrodiagnostics (performed on LUE/ LLE, no needle study performed RUE/ RLE) - History of Present Illness Chief Complaint: weakness History of Present Illness: This is a 24 year old woman with a medical history of breast reduction, abdominoplasty, who presented to the ED 10/05/2019 with progressive weakness which she first noticed in 05/2019 but has worsening especially in the past month. She was found to have rhabdomyolysis for which IV fluids were given; tropinemia and transaminitis were attributed to rhabdo. Cardiology and Renal were consulted. Rheum was consulted as well for elevated CPK, who requested EMG to evaluate for possible polymyositis, with Surgery consult planning muscle biopsy 10/09/2019. Physiatry was requested to perform EMG. - Past Medical History ...: No - Alcohol/Substance Use Hx Alcohol Use: No - Smoking History Smoking history: Never smoked Have you smoked in the past 12 months: No - Social History Usual Living Arrangement: Alone (elevator apartment) ADL: Independent (without AD) Home Medications - Allergies Allergies/Adverse Reactions: Allergies Allergy/AdvReac Type Severity Reaction Status Date / Time No Known Allergies Allergy Verified 10/05/19 02:57 - Home Medications Home Medications: Ambulatory Orders NK [No Known Home Medication] 10/05/19 Review of Systems Findings/Remarks: Denies fevers, chills, changes in vision/ hearing/ mood, CP, SOB, abdominal pain , nausea, vomiting, constipation, diarrhea, dysuria, numbness/ paresthesias BUE / BLE. Notes worsening weakness especially proximally. Physical Exam Vital Signs: Vital Signs Temperature 97.8 F 10/08/19 10:00 Pulse Rate 92 H 10/08/19 10:00 Respiratory Rate 18 10/08/19 10:00 Blood Pressure 127/73 10/08/19 10:00 O2 Sat by Pulse Oximetry (%) 99 10/08/19 09:00 Musculoskeletal: Yes: Other (General: calm young AAF sitting in bed NAD, AAO x3 ; B shoulder flexion to 120 degrees, 3/5 B delt and 2/5 B HF then 5-/5 BUE/ BLE ; Pinprick Intact BUE/ BLE; 2+ BLE pitting edema, no B calf tenderness) Labs: CBC, BMP 10/08/19 07:15 10/08/19 07:15 Assessment/Plan Electrodiagnostics were performed, please see scanned report for further details. Needle study was only performed to LUE/ LLE. This is an abnormality study. There is electrophysiological evidence of a myopathy/ myositis with spontaneous activity. There is also evidence of axonal motor injury to the B ulnar and common peroneal nerves which may be due to edema/ swelling, compression (such as leaning on elbows), or early axonal sensorimotor neuropathy. Impression: 1) Deficits mobility/ ADLs 2) Deconditioning 3) Gait abnormality 4) Myopathy with spontaneous activity: ddx includes but is not limited to: polymyositis, dermatomyositis, inclusion body myositis, muscular dystrophies, myopathies (HHTLV, sarcoid), dystrophin deficiencies 5) Possible neuropathy but more likely 2/2 swelling/ compression 6) Rhabdomyolysis 7) Transaminitis 8) Tropinemia 9) Overweight 10) No documented flu shot/ pneumovax Recommendations: 1) PT for ROM stretching and isometrics strengthening 2) Falls, safety precautions 3) Cardiac precautions 4) Muscle biopsy planned for 10/09/2019, to sample to RIGHT body as left was used for needle study on EMG 5) DVT ppx:on hep sc 6) Skin protection: float heels, frequent turning 7) Denies constipation on current bowel regimen 8) Monitor CBC given anemia 9) Monitor BMP given renal function 10) Nutrition consult for overweight 11) Continue plan per primary team and Rheumatology 12) Discharge planning: to be determined once medically stable Thank you for this referral.
[2019-10-08] MEDS ORDERED: SODIUM CHLORIDE 1,000 ML IV SCH (17:30)
--- NOTE | 2019-10-08 17:57 | PN ---
Physical Exam: SUBJECTIVE: Patient seen and examined WILMA States that she intermittently has weakness getting up from chair. Can lift her hands above her head but doesn't think she can carry an overhead load OBJECTIVE: Vital Signs Period Temp Pulse Resp BP Sys/Newell Pulse Ox Last 24 Hr 97.1 F-98.3 F 75-100 18-20 127-140/71-84 99-100 GENERAL: The patient is awake, alert, and fully oriented, in no acute distress. HEAD: Normal with no signs of trauma. EYES: extraocular movements intact, sclera anicteric, conjunctiva clear. No ptosis. ENT: Ears normal, nares patent, oropharynx clear without exudates, moist mucous membranes. No oral ulcers NECK: Trachea midline, full range of motion, supple. Neg cervical LAD LUNGS: Breath sounds equal, clear to auscultation bilaterally, no wheezes, no crackles, no accessory muscle use. HEART: Regular rate and rhythm, S1, S2 without murmur, rub or gallop. ABDOMEN: Soft, nontender, nondistended, normoactive bowel sounds, no guarding, no rebound. EXTREMITIES: 2+ pulses, warm, well-perfused, no edema. NEUROLOGICAL: Cranial nerves II through XII grossly intact. Normal speech. Decreased strength 4/5 flexion/extension of RUE shoulder. Decreased flexion/ extension of LLE hip PSYCH: normal mood SKIN: Warm, dry, normal turgor, no rashes or lesions noted Laboratory Results - last 24 hr 10/05/19 10/07/19 10/08/19 03:50 17:20 07:15 WBC RBC Hgb Hct MCV MCH MCHC RDW Plt Count MPV Sodium 139 Potassium 4.4 Chloride 110 H Carbon Dioxide 23 Anion Gap 6 L BUN 6.3 L Creatinine 0.3 L Est GFR (CKD-EPI)AfAm 184.44 Est GFR (CKD-EPI)NonAf 159.13 Random Glucose 110 H Calcium 8.4 L Phosphorus 4.0 Magnesium 2.0 Total Bilirubin 0.4 AST 479 H ALT 312 H Alkaline Phosphatase 31 L Creatine Kinase > 37664 H Creatine Kinase Index 0.0 CK-MB (CK-2) > 300.0 H Total Protein 6.2 L Albumin 2.6 L Urine Color Yellow Urine Appearance Clear Urine pH 6.0 Ur Specific [place] 1.013 Urine Protein Trace Urine Glucose (UA) Negative Urine Ketones Negative Urine Blood 3+ H Urine Nitrite Negative Urine Bilirubin Negative Urine Urobilinogen 0.2 Ur Leukocyte Esterase Negative Urine WBC (Auto) 1 Urine RBC (Auto) 0 Urine Casts (Auto) 2 U Epithel Cells (Auto) 3.4 Urine Bacteria (Auto) 37.3 Lyme IgM 23 kDa Band No Result Required. Lyme IgM 39 kDa Band No Result Required. Lyme IgM 41 kDa Band No Result Required. 10/08/19 07:15 WBC 10.1 H RBC 3.86 Hgb 9.8 L Hct 30.1 L D MCV 78.0 L MCH 25.5 L MCHC 32.7 RDW 16.4 H Plt Count 341 D MPV 8.0 Sodium Potassium Chloride Carbon Dioxide Anion Gap BUN Creatinine Est GFR (CKD-EPI)AfAm Est GFR (CKD-EPI)NonAf Random Glucose Calcium Phosphorus Magnesium Total Bilirubin AST ALT Alkaline Phosphatase Creatine Kinase Creatine Kinase Index CK-MB (CK-2) Total Protein Albumin Urine Color Urine Appearance Urine pH Ur Specific [place] Urine Protein Urine Glucose (UA) Urine Ketones Urine Blood Urine Nitrite Urine Bilirubin Urine Urobilinogen Ur Leukocyte Esterase Urine WBC (Auto) Urine RBC (Auto) Urine Casts (Auto) U Epithel Cells (Auto) Urine Bacteria (Auto) Lyme IgM 23 kDa Band Lyme IgM 39 kDa Band Lyme IgM 41 kDa Band Active Medications Generic Name Dose Route Start Last Admin Trade Name Parker PRN Reason Stop Dose Admin Folic Acid 1 mg 10/08/19 10:00 10/08/19 09:24 Folic Acid - PO 1 mg DAILY EJSSI Administration Heparin Sodium (Porcine) 5,000 unit 10/05/19 10:00 10/08/19 17:11 Heparin - SQ 5,000 unit Q8H-IV JESSI Administration Sodium Chloride 1,000 mls @ 200 mls/hr 10/08/19 17:30 Normal Saline - IV ASDIR JESSI Methotrexate 15 mg 10/07/19 14:00 10/07/19 15:31 Mexate - PO 15 mg Q7D JESSI Administration Methylprednisolone Sodium Succinate 30 mg 10/07/19 22:00 10/08/19 09:24 Solu-Medrol - IVPUSH 30 mg BID JESSI Administration Pantoprazole Sodium 40 mg 10/07/19 20:43 10/08/19 09:24 Protonix - PO 40 mg DAILY JESSI Administration ASSESSMENT/PLAN: 24 y.o. F w/o PMHx. who presents with progressive muscle weakness over the last month. Pt. states that she was taking care of errands in the house when she collapsed, because of lower extremity weakness. Denied extensive physical activity, drug usage. 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 Admitted for rhabdomylosis. Rheum onboard, rec solumedrol, methotrexate, folic acid. EMG showed evidence of myopathy, axonal motor injury of b/l ulnar and b/l peroneal nerves. Possibly dt compression or neuropathy. Responding to Gunser's hypnosis therapy. Dr Craft recommended PT(ROM stretching and isometric strenghtening). Plan for muscle bx on 10/09/19 #Progressive Muscle Weakness -- secondary to rhabdomyolsis of uknown etiology, possibly 2/2 rheum-related muscle pathology > CPK: 14,000+, LDH 1,600+ > ESR 24, CRP 1.9 > TSH 6.0, T4 1.13, T3 4.0 --likely subclinical hypothyroidism. > Influenza: neg > Lyme serology --pending - Nephro([facility]) consult: --rpt UA --decr protein --IVF --monitor labs and LFTs - Rheumatology([facility]) consult: --probable polymyositis --labs: CHIKA, complement, dsDNA, Lupus anticoagulant, UA --solumedrol 30 mg IV BID, Methotrextae 15 mg PO once per week, Folic acid 1 mg/d --Dr. Liao for EMG --Dr. Norman for muscle biopsy - PM&R([facility]) consult: --EMG(10/08/19): electrophysiological evidence of myopathy/myositis w/ spontaneous activity - Dr Hidalgo --ROM stretching and isometrics strengthening #Tropinemia --likley 2/2 to rhabdomyolysis > Troponin 0.29, 0.3, 0.28, 0.29 > EKG: TWI in septal leads and T-wave flattening in V3, with associated dyspnea on exertion after 1 block > Echo(10/06/19): LVEF 65-70% -Cardiology consult to Dr. Howard: --electrolyte repletion --[facility] inflamm myopathy/myositis --fu CK, TNI --rec psych consult for depression #Transaminitis --likely 2/2 to rhabdomyolysis > US Abd: mild diffuse hepatic steatosis -will c/w trend #Depression > Psych([facility]) consult: --likely long standing dysthymia --rec outpt career counseling --will be followed while inpt #FEN -NS @ 200, will encourage PO intake as well -monitor electrolytes and replete as needed -Regular Diet #DVT Ppx. Hep SQ Visit type - Emergency Visit Emergency Visit: No - New Patient This patient is new to me today: No - Critical Care Critical Care patient: No ATTENDING PHYSICIAN STATEMENT I saw and evaluated the patient. I reviewed the resident's note and discussed the case with the resident. I agree with the resident's findings and plan as documented. SUBJECTIVE: OBJECTIVE: ASSESSMENT AND PLAN:
--- NOTE | 2019-10-08 20:12 | PN ---
Teaching Attending Note Name of Resident: Isma Reina ATTENDING PHYSICIAN STATEMENT I saw and evaluated the patient. I reviewed the resident's note and discussed the case with the resident. I agree with the resident's findings and plan as documented. SUBJECTIVE: OBJECTIVE: ASSESSMENT AND PLAN: 24 y/o lady with no Sig PMH who presented with weakness 1- Possible mysitis 2- subclinical hypothyroidism 3- Elevated CPK 4- Transaminitis due to rhabdo 5- Microcytic anemia Plan : - EMG - Muscle Bx tomorrow - cont IVF - repeat TSH as out pt - monitor renal function and LFTs - Iron studies
[2019-10-08 22:09] LABS: HEP B CORE AB, TOT Negative (Negative)
[2019-10-09 07:48] LABS: INR 1.08 (0.83-1.09); PROTHROMBIN TIME (PATIENT) 12.8 SEC (9.7-13.0)
[2019-10-09 07:49] LABS: HEMATOCRIT 30.3 % (32.4-45.2); HEMOGLOBIN 9.9 GM/dL (10.7-15.3); MCH 25.7 pg (25.7-33.7); MCHC 32.8 g/dl (32.0-36.0); MEAN CELL VOLUME 78.5 fl (80-96); MEAN PLT VOLUME 8.4 fl (7.5-11.1); PLATELET COUNT 315 K/MM3 (134-434); RBC 3.87 M/mm3 (3.60-5.2); RDW 16.8 % (11.6-15.6); WHITE BLOOD COUNT 10.8 K/mm3 (4.0-10.0)
[2019-10-09 07:50] LABS: ACTIVATED PTT 27.4 SECONDS (25.2-36.5)
[2019-10-09] MEDS ORDERED: LIDOCAINE HCL 1%, 10 MG/ML (20ML VIAL) ONE (08:18)
[2019-10-09] MEDS ORDERED: FUROSEMIDE 40 MG/4 ML INJECTABLE VIAL IVPUSH ONE ×2 (08:45→10:17)
[2019-10-09] MEDS ORDERED: LIDOCAINE HCL/PF 2% SDV 5ML VIAL ONE (08:49)
[2019-10-09] MEDS ORDERED: PROPOFOL 20 ML ONE ×3 (08:50)
[2019-10-09] MEDS ORDERED: SUCCINYLCHOLINE CHLORIDE 200 MG/10 ML SYRINGE ONE (08:50)
[2019-10-09] MEDS ORDERED: MIDAZOLAM HCL 2 MG/2 ML SINGLE DOSE VIAL ONE ×2 (08:50)
[2019-10-09 08:54] LABS: ALBUMIN 2.9 g/dl (3.4-5.0); BILIRUBIN,TOTAL 0.1 mg/dL (0.2-1); BLOOD UREA NITROGEN 8.1 mg/dL (7-18); CALCIUM 8.7 mg/dL (8.5-10.1); CREATININE 0.3 mg/dL (0.55-1.3); MAGNESIUM 1.8 mg/dL (1.8-2.4); PHOSPHOROUS 4.2 mg/dL (2.5-4.9); POTASSIUM 4.4 mmol/L (3.5-5.1); TOT PROT 6.9 g/dl (6.4-8.2)
[2019-10-09] MEDS ORDERED: ceFAZolin SODIUM 1 GM VIAL IVPB ONE (09:25)
[2019-10-09] MEDS ORDERED: LIDOCAINE HCL 1%, 10 MG/ML (20ML VIAL) INF ONE (09:26)
[2019-10-09] MEDS: FOLIC ACID 1 MG TABLET (FP) PO SCH (10:00)
[2019-10-09] MEDS: methylPREDNISolone NA SUCC 40 MG/1 ML VIAL IVPUSH SCH ×2 (10:00→22:21)
[2019-10-09] MEDS: PANTOPRAZOLE 40 MG TABLET PO SCH (10:00)
--- NOTE | 2019-10-09 10:00 | OP ---
Operative Note - Note: Operative Date: 10/09/19 Pre-Operative Diagnosis: Rule out polymyositis Operation: Right thigh muscle biopsy Post-Operative Diagnosis: Same as Pre-op Surgeon: Javon Norman Anesthesia: Fractional Estimated Blood Loss (mls): 2 Operative Report Dictated: Yes
[2019-10-09] MEDS ORDERED: LACTATED RINGERS SOLUTION 1,000 ML IV SCH (10:30)
[2019-10-09] MEDS: SODIUM CHLORIDE 1,000 ML IV SCH ×2 (11:50→17:08)
--- NOTE | 2019-10-09 12:35 | PN ---
Progress Note, Physician History of Present Illness: Pt seen and examined at bedside. She tolerated the muscle biopsy. - Current Medication List Current Medications: Active Medications Fentanyl (Sublimaze Injection -) 50 mcg IVPUSH [id number] PRN PRN Reason: PAIN-PACU ORDER X 4 DOSES ONLY Folic Acid (Folic Acid -) 1 mg PO DAILY [facility] Heparin Sodium (Porcine) (Heparin -) 5,000 unit SQ TID [facility] Sodium Chloride (Normal Saline -) 1,000 mls @ 200 mls/hr IV ASDIR [facility] Last Admin: 10/09/19 11:50 Dose: Not Given Lactated Ringer's (Lactated Ringers Solution) 1,000 mls @ 125 mls/hr IV ASDIR JESSI Last Admin: 10/09/19 11:53 Dose: Not Given Methotrexate (Mexate -) 15 mg PO Q7D [facility] Methylprednisolone Sodium Succinate (Solu-Medrol -) 30 mg IVPUSH BID [facility] Ondansetron HCl (Zofran Injection) 4 mg IVPUSH Q6H PRN PRN Reason: NAUSEA AND/OR VOMITING Oxycodone HCl (Roxicodone -) 5 mg PO Q4H PRN PRN Reason: PAIN LEVEL 1-5 Pantoprazole Sodium (Protonix -) 40 mg PO DAILY [facility] - Objective Vital Signs: Vital Signs Temperature 98.3 F 10/09/19 10:51 Pulse Rate 57 L 10/09/19 10:51 Respiratory Rate 18 10/09/19 11:54 Blood Pressure 141/81 10/09/19 11:54 O2 Sat by Pulse Oximetry (%) 100 10/09/19 10:51 Constitutional: Yes: Calm Eyes: Yes: Conjunctiva Clear HENT: Yes: Atraumatic Neck: Yes: Supple Cardiovascular: Yes: S1, S2 Respiratory: Yes: CTA Bilaterally Gastrointestinal: Yes: Soft Genitourinary: Yes: WNL Musculoskeletal: Yes: Muscle Weakness Edema: Yes Edema: LLE: Trace, RLE: Trace Neurological: Yes: Oriented Psychiatric: Yes: Oriented Labs: CBC, BMP 10/09/19 06:20 10/09/19 06:20 INR, PTT INR 1.08 (0.83-1.09) 10/09/19 06:20 Problem List - Problems (1) Rhabdomyolysis Code(s): M62.82 - RHABDOMYOLYSIS Assessment/Plan Current Medications Generic Name Dose Route Start Last Admin Trade Name Freq PRN Reason Stop Dose Admin Fentanyl 50 mcg 10/09/19 10:28 Sublimaze Injection - IVPUSH [id number] PRN PAIN-PACU ORDER X 4 DOSES ONLY Folic Acid 1 mg 10/10/19 10:00 Folic Acid - PO DAILY [facility] Heparin Sodium (Porcine) 5,000 unit 10/09/19 14:00 Heparin - SQ TID [facility] Sodium Chloride 1,000 mls @ 200 mls/hr 10/09/19 10:17 10/09/19 11:50 Normal Saline - IV Not Given ASDIR [facility] Lactated Ringer's 1,000 mls @ 125 mls/hr 10/09/19 10:30 10/09/19 11:53 Lactated Ringers Solution IV Not Given ASDIR [facility] Methotrexate 15 mg 10/14/19 10:00 Mexate - PO Q7D [facility] Methylprednisolone Sodium Succinate 30 mg 10/09/19 22:00 Solu-Medrol - IVPUSH BID [facility] Ondansetron HCl 4 mg 10/09/19 10:28 Zofran Injection IVPUSH Q6H PRN NAUSEA AND/OR VOMITING Oxycodone HCl 5 mg 10/09/19 10:28 Roxicodone - PO Q4H PRN PAIN LEVEL 1-5 Pantoprazole Sodium 40 mg 10/10/19 10:00 Protonix - PO DAILY [facility] Impression 1. rhabdo 2. hematuria 3. proteinuria 4. transaminitis 5. hypokalemia 6. r/o polymyositis Plan - cpk improving - cont fluids - repeat ua tomorrow - follow muscle biopsy - monitor lfts
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
--- NOTE | 2019-10-09 12:54 | PN ---
Teaching Attending Note Name of Resident: Maximino Meraz ATTENDING PHYSICIAN STATEMENT I saw and evaluated the patient. I reviewed the resident's note and discussed the case with the resident. I agree with the resident's findings and plan as documented. SUBJECTIVE: Seen at 8:15 am. SOB, has dry cough. no cp . No fever or chills. still feels weak in her legs and arms. no pa inin extremities. OBJECTIVE: NAD. MMM CV: RRR, no MRG. No JVD. Lungs: CTAB Ext; trace edema on LEs. no tenderness to palpation over thighs or upper arms. ASSESSMENT AND PLAN: 24 y/o lady with no Sig PMH who presented with weakness 1- Possible myositis 2- subclinical hypothyroidism 3- Rhabdomyolysis 4- Transaminitis due to rhabdo 5- Microcytic anemia 6- Hypertropenemia 7- Volume overload Plan: - EMG reviewed. muscle pathology, likely myositis. some degree of axonal nerve involvement - Muscle Bx today - cont IVF - give 40 mg of IV lasix today - cont steroids and MTX/folic - repeat TSH as out pt - monitor renal function and LFTs - Iron studies - hepatitis serology reviewed. immune to Hep B and Hep A. - follow CHIKA, DsDNA, and complement - echo reviewed. - heparin for DVT px
[2019-10-09] MEDS: oxyCODONE HCL 5 MG TABLET PO PRN ×2 (15:01→22:43)
[2019-10-09] MEDS: HEPARIN NA (PORCINE) 5,000 UNITS/ML 1ML VIAL SQ SCH ×2 (15:03→22:20)
--- NOTE | 2019-10-09 17:47 | PN ---
Physical Exam: SUBJECTIVE: Patient seen and examined Pt having weakness of legs. In the day, had rapid response for fall, hitting head s/p Right thigh muscle bx OBJECTIVE: Vital Signs Period Temp Pulse Resp BP Sys/Newell Pulse Ox Last 24 Hr 97.9 F-98.7 F 50-120 17-20 137-155/73-95 99-100 GENERAL: The patient is awake, alert, and fully oriented, in no acute distress. Tearful and groggy-appearing when recounting the fall HEAD: Normal with no signs of trauma. Pain with AROM of neck to extension and rotation to the left EYES: extraocular movements intact, sclera anicteric, conjunctiva clear. No ptosis. ENT: Ears normal, nares patent, oropharynx clear without exudates, moist mucous membranes. No oral ulcers NECK: Trachea midline, full range of motion, supple. Neg cervical LAD LUNGS: Mildl crackles of b/l bases, no accessory muscle use. HEART: Regular rate and rhythm, S1, S2 without murmur, rub or gallop. ABDOMEN: Soft, nontender, nondistended, normoactive bowel sounds, no guarding, no rebound. EXTREMITIES: 2+ pulses, warm, well-perfused, no edema. NEUROLOGICAL: Cranial nerves II through XII grossly intact. Normal speech. Decreased strength 4/5 flexion/extension of LUE shoulder. Decreased flexion/ extension of LLE hip PSYCH: tearful and groggy appearing after surgery SKIN: Warm, dry, normal turgor, no rashes or lesions noted Laboratory Results - last 24 hr 10/07/19 10/08/19 10/09/19 07:20 07:15 06:20 WBC RBC Hgb Hct MCV MCH MCHC RDW Plt Count MPV PT with INR INR PTT (Actin FS) Sodium 138 Potassium 4.4 Chloride 108 H Carbon Dioxide 24 Anion Gap 6 L BUN 8.1 Creatinine 0.3 L Est GFR (CKD-EPI)AfAm 184.44 Est GFR (CKD-EPI)NonAf 159.13 Random Glucose 113 H Calcium 8.7 Phosphorus 4.2 Magnesium 1.8 Total Bilirubin 0.1 L AST 371 H ALT 331 H Alkaline Phosphatase 34 L Creatine Kinase 04935 H Creatine Kinase Index 1.6 CK-MB (CK-2) 217.8 H Total Protein 6.9 Albumin 2.9 L Double Strand DNA Ab 1 Hep A IgM Ab Confirm Negative Hepatitis A Ab Total Positive H Hep Bs Antigen Negative Hep Bs Antibody Reactive Hep B Core Total Ab Negative Hep B Core IgM Ab Negative Hepatitis Be Antibody Negative Hepatitis Be Antigen Negative HCV Quantitation Hcv not detected HCV RNA log copies/mL TNP Blood Type Antibody Screen 10/09/19 10/09/19 10/09/19 06:20 06:20 06:20 WBC 10.8 H RBC 3.87 Hgb 9.9 L Hct 30.3 L MCV 78.5 L MCH 25.7 MCHC 32.8 RDW 16.8 H Plt Count 315 MPV 8.4 PT with INR 12.80 INR 1.08 PTT (Actin FS) 27.4 Sodium Potassium Chloride Carbon Dioxide Anion Gap BUN Creatinine Est GFR (CKD-EPI)AfAm Est GFR (CKD-EPI)NonAf Random Glucose Calcium Phosphorus Magnesium Total Bilirubin AST ALT Alkaline Phosphatase Creatine Kinase Creatine Kinase Index CK-MB (CK-2) Total Protein Albumin Double Strand DNA Ab Hep A IgM Ab Confirm Hepatitis A Ab Total Hep Bs Antigen Hep Bs Antibody Hep B Core Total Ab Hep B Core IgM Ab Hepatitis Be Antibody Hepatitis Be Antigen HCV Quantitation HCV RNA log copies/mL Blood Type O NEGATIVE Antibody Screen Negative Active Medications Generic Name Dose Route Start Last Admin Trade Name Freq PRN Reason Stop Dose Admin Fentanyl 50 mcg 10/09/19 10:28 Sublimaze Injection - IVPUSH [id number] PRN PAIN-PACU ORDER X 4 DOSES ONLY Folic Acid 1 mg 10/10/19 10:00 Folic Acid - PO DAILY [facility] Heparin Sodium (Porcine) 5,000 unit 10/09/19 14:00 10/09/19 15:03 Heparin - SQ 5,000 unit TID [facility] Administration Sodium Chloride 1,000 mls @ 200 mls/hr 10/09/19 10:17 10/09/19 11:50 Normal Saline - IV Not Given ASDIR [facility] Methotrexate 15 mg 10/14/19 10:00 Mexate - PO Q7D [facility] Methylprednisolone Sodium Succinate 30 mg 10/09/19 22:00 Solu-Medrol - IVPUSH BID [facility] Ondansetron HCl 4 mg 10/09/19 10:28 Zofran Injection IVPUSH Q6H PRN NAUSEA AND/OR VOMITING Oxycodone HCl 5 mg 10/09/19 10:28 10/09/19 15:01 Roxicodone - PO 5 mg Q4H PRN Administration PAIN LEVEL 1-5 Pantoprazole Sodium 40 mg 10/10/19 10:00 Protonix - PO DAILY JESSI ASSESSMENT/PLAN: 24 y.o. F w/o PMHx. who presents with progressive muscle weakness over the last month. Pt. states that she was taking care of errands in the house when she collapsed, because of lower extremity weakness. Denied extensive physical activity, drug usage. 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 Admitted for rhabdomylosis. Rheum onboard, rec solumedrol, methotrexate, folic acid. EMG showed evidence of myopathy, axonal motor injury of b/l ulnar and b/l peroneal nerves. Possibly dt compression or neuropathy. Responding to Gunser's hypnosis therapy. Dr Craft recommended PT(ROM stretching and isometric strenghtening). S/p muscle bx([place], 10/09/19). CK downtrending from 14k. Received lasix x1 for crackles, likely 2/2 fluid overload. Pt fell w/o LOC. CTH and CTcspine neg. #Progressive Muscle Weakness -- secondary to rhabdomyolsis of uknown etiology, possibly 2/2 rheum-related muscle pathology > CPK: 14,000 --downtrending > ESR 24, CRP 1.9 > TSH 6.0, T4 1.13, T3 4.0 --likely subclinical hypothyroidism. > Influenza: neg > Lyme serology --pending - Nephro([facility]) consult: --rpt UA --decr protein --IVF --monitor labs and LFTs - Rheumatology([facility]) consult: --probable polymyositis --labs: CHIKA, complement, dsDNA, Lupus anticoagulant, UA --solumedrol 30 mg IV BID, Methotrextae 15 mg PO once per week, Folic acid 1 mg/d --Dr. Liao --EMG --Dr. Norman --muscle biopsy - PM&R([facility]) consult: --EMG(10/08/19): electrophysiological evidence of myopathy/myositis w/ spontaneous activity - Dr Hidalgo --ROM stretching and isometrics strengthening #Mechanical Fall --2/2 to proximal muscle weakness > CTH, CTcspine(10/09/19): neg #Tropinemia --likley 2/2 to rhabdomyolysis > Troponin 0.29, 0.3, 0.28, 0.29 > EKG: TWI in septal leads and T-wave flattening in V3, with associated dyspnea on exertion after 1 block > Echo(10/06/19): LVEF 65-70% -Cardiology consult to Dr. Howard: --electrolyte repletion --[facility] inflamm myopathy/myositis --fu CK, TNI --rec psych consult for depression #Transaminitis --likely 2/2 to rhabdomyolysis > US Abd: mild diffuse hepatic steatosis -will c/w trend #Microcytic anemia --no known FH, no active menstruation, no signs of GIB > Hgb 9.9, MCV 78.5 - fu iron studies #Depression > Psych([facility]) consult: --likely long standing dysthymia --rec outpt career counseling --will be followed while inpt #pain --post-op - oxycodone 5mg #FEN -NS @ 200, will encourage PO intake as well -monitor electrolytes and replete as needed -Regular Diet #DVT Ppx. Hep SQ Visit type - Emergency Visit Emergency Visit: No - New Patient This patient is new to me today: No - Critical Care Critical Care patient: No ATTENDING PHYSICIAN STATEMENT I saw and evaluated the patient. I reviewed the resident's note and discussed the case with the resident. I agree with the resident's findings and plan as documented. SUBJECTIVE: OBJECTIVE: ASSESSMENT AND PLAN:
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
[2019-10-10] MEDS: SODIUM CHLORIDE 1,000 ML IV SCH ×6 (00:30→22:05)
[2019-10-10] MEDS ORDERED: SUMAtriptan SUCCINATE 25 MG TABLET PO ONE (03:29)
[2019-10-10] MEDS ORDERED: PROCHLORPERAZINE INJECTION 10 MG/2 ML VIAL IVPB ONE (05:16)
[2019-10-10] MEDS: HEPARIN NA (PORCINE) 5,000 UNITS/ML 1ML VIAL SQ SCH ×3 (05:50→22:07)
[2019-10-10 06:34] LABS: MCH 25.1 pg (25.7-33.7); MCHC 32.1 g/dl (32.0-36.0); MEAN CELL VOLUME 78.2 fl (80-96); MEAN PLT VOLUME 8.2 fl (7.5-11.1); PLATELET COUNT 323 K/MM3 (134-434); RBC 3.58 M/mm3 (3.60-5.2); RDW 16.5 % (11.6-15.6); WHITE BLOOD COUNT 13.3 K/mm3 (4.0-10.0)
[2019-10-10 07:05] LABS: ALBUMIN 2.8 g/dl (3.4-5.0); BILIRUBIN,TOTAL 0.2 mg/dL (0.2-1); BLOOD UREA NITROGEN 11.5 mg/dL (7-18); CALCIUM 8.3 mg/dL (8.5-10.1); CREATININE 0.4 mg/dL (0.55-1.3); MAGNESIUM 1.5 mg/dL (1.8-2.4); PHOSPHOROUS 3.9 mg/dL (2.5-4.9); POTASSIUM 4.2 mmol/L (3.5-5.1); TOT PROT 6.3 g/dl (6.4-8.2)
[2019-10-10] MEDS ORDERED: PT OWN MED DRAWER 7, Y5N ONE (09:05)
[2019-10-10] MEDS: FOLIC ACID 1 MG TABLET (FP) PO SCH (09:33)
[2019-10-10] MEDS: PANTOPRAZOLE 40 MG TABLET PO SCH (09:33)
[2019-10-10] MEDS: methylPREDNISolone NA SUCC 40 MG/1 ML VIAL IVPUSH SCH ×2 (09:34→22:06)
[2019-10-10] MEDS ORDERED: MAGNESIUM CL 64 MG TABLET.SA PO ONE (10:00)
[2019-10-10 12:08] LABS: DRVVT - 35.8 sec (0.0-47.0)
--- NOTE | 2019-10-10 15:14 | PN ---
Teaching Attending Note Name of Resident: Maximino Meraz ATTENDING PHYSICIAN STATEMENT I saw and evaluated the patient. I reviewed the resident's note and discussed the case with the resident. I agree with the resident's findings and plan as documented. SUBJECTIVE: No fever or chills. no GARCIA , she feels better today. no SOB . no focal weakness but generally weak . no cough. has a slight GARCIA . OBJECTIVE: NAD. MMM. CV: RRR, no MRG. No JVD. Lungs: CTAB Ext; trace edema on LEs. no tenderness to palpation over thighs or upper arms. neuro' EOMI, round reactive R pupil, deformed L pupil ( eye surgery). no facial droop. tongue at mid line. strength 4/5 shoulder abduction, 5/5 shoulder flexion , 5/5 biceps /triceps bilaterally. Nl hand resistor coater. 3/5 in hip flexion , and 5/5 knee flexion/extension, ankle dorsiflexion /plantar lfexion b/l. reflees 2+ knee jerk bl. 1+ biceps /l ASSESSMENT AND PLAN: 24 y/o lady with no Sig PMH who presented with weakness 1- Possible myositis 2- subclinical hypothyroidism 3- Rhabdomyolysis 4- Transaminitis due to rhabdo 5- Microcytic anemia 6- Hypertropenemia 7- Volume overload. Plan: - Muscle Bx results pending. - cont IVF . CPK improving. no signs of fluid overload today - cont steroids and MTX/folic - repeat TSH as out pt - monitor renal function and LFTs - Iron studies indicate no iron def. f/uw tih heme as out pt to evaluate - CHIKA pending . DsDNA, and complement are normal . Lyme As neg - heparin for DVT px - might need repeat EMG/NC as out pt
--- NOTE | 2019-10-10 16:33 | PN ---
Progress Note, Physician History of Present Illness: Pt seen and examined at bedside. She is awake and alert. She denies shortness of breath. She feels that her strength is improving. - Current Medication List Current Medications: Active Medications Fentanyl (Sublimaze Injection -) 50 mcg IVPUSH [id number] PRN PRN Reason: PAIN-PACU ORDER X 4 DOSES ONLY Folic Acid (Folic Acid -) 1 mg PO DAILY [facility] Last Admin: 10/10/19 09:33 Dose: 1 mg Heparin Sodium (Porcine) (Heparin -) 5,000 unit SQ TID [facility] Last Admin: 10/10/19 14:08 Dose: 5,000 unit Sodium Chloride (Normal Saline -) 1,000 mls @ 200 mls/hr IV ASDIR [facility] Last Admin: 10/10/19 11:30 Dose: 200 mls/hr Methotrexate (Mexate -) 15 mg PO Q7D [facility] Methylprednisolone Sodium Succinate (Solu-Medrol -) 30 mg IVPUSH BID [facility] Last Admin: 10/10/19 09:34 Dose: 30 mg Ondansetron HCl (Zofran Injection) 4 mg IVPUSH Q6H PRN PRN Reason: NAUSEA AND/OR VOMITING Oxycodone HCl (Roxicodone -) 5 mg PO Q4H PRN PRN Reason: PAIN LEVEL 1-5 Last Admin: 10/09/19 22:43 Dose: 5 mg Pantoprazole Sodium (Protonix -) 40 mg PO DAILY [facility] Last Admin: 10/10/19 09:33 Dose: 40 mg - Objective Vital Signs: Vital Signs Temperature 98 F 10/10/19 14:17 Pulse Rate 65 10/10/19 14:17 Respiratory Rate 20 10/10/19 14:17 Blood Pressure 146/79 10/10/19 14:17 O2 Sat by Pulse Oximetry (%) 100 10/10/19 09:00 Constitutional: Yes: Calm Eyes: Yes: Conjunctiva Clear HENT: Yes: Atraumatic Neck: Yes: Supple Cardiovascular: Yes: S1, S2 Respiratory: Yes: CTA Bilaterally Gastrointestinal: Yes: Soft Genitourinary: Yes: WNL Musculoskeletal: Yes: Muscle Weakness Edema: No Integumentary: Yes: Tattoos Neurological: Yes: Oriented Labs: CBC, BMP 10/10/19 06:00 10/10/19 06:00 INR, PTT INR 1.08 (0.83-1.09) 10/09/19 06:20 Problem List - Problems (1) Rhabdomyolysis Code(s): M62.82 - RHABDOMYOLYSIS Assessment/Plan Current Medications Generic Name Dose Route Start Last Admin Trade Name Freq PRN Reason Stop Dose Admin Fentanyl 50 mcg 10/09/19 10:28 Sublimaze Injection - IVPUSH [id number] PRN PAIN-PACU ORDER X 4 DOSES ONLY Folic Acid 1 mg 10/10/19 10:00 10/10/19 09:33 Folic Acid - PO 1 mg DAILY JESSI Administration Heparin Sodium (Porcine) 5,000 unit 10/09/19 14:00 10/10/19 14:08 Heparin - SQ 5,000 unit TID JESSI Administration Sodium Chloride 1,000 mls @ 200 mls/hr 10/09/19 10:17 10/10/19 11:30 Normal Saline - IV 200 mls/hr ASDIR JESSI Administration Methotrexate 15 mg 10/14/19 10:00 Mexate - PO Q7D JESSI Methylprednisolone Sodium Succinate 30 mg 10/09/19 22:00 10/10/19 09:34 Solu-Medrol - IVPUSH 30 mg BID JESSI Administration Ondansetron HCl 4 mg 10/09/19 10:28 Zofran Injection IVPUSH Q6H PRN NAUSEA AND/OR VOMITING Oxycodone HCl 5 mg 10/09/19 10:28 10/09/19 22:43 Roxicodone - PO 5 mg Q4H PRN Administration PAIN LEVEL 1-5 Pantoprazole Sodium 40 mg 10/10/19 10:00 10/10/19 09:33 Protonix - PO 40 mg DAILY JESSI Administration Impression 1. rhabdo 2. hematuria 3. proteinuria 4. transaminitis 5. hypokalemia 6. r/o polymyositis Plan - cpk continues to improve - cont fluids - monitor lytes - repeat labs in am - repeat ua - follow muscle biopsy - will follow PRN
[2019-10-10] MEDS ORDERED: ACETAMINOPHEN 500 MG TABLET (FP) PO ONE (17:21)
--- NOTE | 2019-10-10 17:28 | PN ---
Physical Exam: SUBJECTIVE: Patient seen and examined O/N: complaint of GARCIA prompted triptan and compazine Endorses strength better than yesterday but continued weakness of legs, while standing. OBJECTIVE: Vital Signs Period Temp Pulse Resp BP Sys/Newell Pulse Ox Last 24 Hr 97.8 F-98.4 F 57-76 20-20 120-165/63-81 98-100 GENERAL: The patient is awake, alert, and fully oriented, in no acute distress. HEAD: NC/AT EYES: extraocular movements intact, sclera anicteric, conjunctiva clear. No ptosis. ENT: Ears normal, nares patent, oropharynx clear without exudates, moist mucous membranes. No oral ulcers NECK: Trachea midline, full range of motion, supple. Neg cervical LAD LUNGS: CTAB, no accessory muscle use. HEART: Regular rate and rhythm, S1, S2 without murmur, rub or gallop. ABDOMEN: Soft, nontender, nondistended, no guarding, no rebound. EXTREMITIES: 2+ pulses, warm, well-perfused, no edema. Right anterior mid- thigh with surgical dressing w/o strikethrough NEUROLOGICAL: Cranial nerves II through XII grossly intact. Normal speech. Decreased strength 4/5 flexion/extension of RUE shoulder. Decreased flexion/ extension of RLE hip PSYCH: normal mood SKIN: Warm, dry, normal turgor, no rashes or lesions noted Laboratory Results - last 24 hr 10/08/19 10/10/19 10/10/19 07:15 06:00 06:00 WBC 13.3 H RBC 3.58 L Hgb 9.0 L Hct 28.0 L MCV 78.2 L MCH 25.1 L MCHC 32.1 RDW 16.5 H Plt Count 323 MPV 8.2 LA PTT Baseline 39.8 dRVVT Confirm Interp 35.8 Lupus Anticoag Comment Comment: Sodium 139 Potassium 4.2 Chloride 108 H Carbon Dioxide 25 Anion Gap 6 L BUN 11.5 Creatinine 0.4 L Est GFR (CKD-EPI)AfAm 167.78 Est GFR (CKD-EPI)NonAf 144.76 Random Glucose 124 H Calcium 8.3 L Phosphorus 3.9 Magnesium 1.5 L Iron 44 L TIBC Iron Saturation Unsaturated IBC Ferritin 124.4 Total Bilirubin 0.2 AST 242 H ALT 275 H Alkaline Phosphatase 29 L Creatine Kinase Creatine Kinase Index CK-MB (CK-2) Total Protein 6.3 L Albumin 2.8 L Tot Complement (CH50) 57 10/10/19 06:00 WBC RBC Hgb Hct MCV MCH MCHC RDW Plt Count MPV LA PTT Baseline dRVVT Confirm Interp Lupus Anticoag Comment Sodium Potassium Chloride Carbon Dioxide Anion Gap BUN Creatinine Est GFR (CKD-EPI)AfAm Est GFR (CKD-EPI)NonAf Random Glucose Calcium Phosphorus Magnesium Iron 44 L TIBC 201 L Iron Saturation 21 Unsaturated IBC 157 L Ferritin Total Bilirubin AST ALT Alkaline Phosphatase Creatine Kinase 8026 H Creatine Kinase Index 1.8 CK-MB (CK-2) 149.2 H Total Protein Albumin Tot Complement (CH50) Active Medications Generic Name Dose Route Start Last Admin Trade Name Freq PRN Reason Stop Dose Admin Fentanyl 50 mcg 10/09/19 10:28 Sublimaze Injection - IVPUSH [id number] PRN PAIN-PACU ORDER X 4 DOSES ONLY Folic Acid 1 mg 10/10/19 10:00 10/10/19 09:33 Folic Acid - PO 1 mg DAILY JESSI Administration Heparin Sodium (Porcine) 5,000 unit 10/09/19 14:00 10/10/19 14:08 Heparin - SQ 5,000 unit TID JESSI Administration Sodium Chloride 1,000 mls @ 200 mls/hr 10/09/19 10:17 10/10/19 16:30 Normal Saline - IV 200 mls/hr ASDIR JESSI Administration Methotrexate 15 mg 10/14/19 10:00 Mexate - PO Q7D JESSI Methylprednisolone Sodium Succinate 30 mg 10/09/19 22:00 10/10/19 09:34 Solu-Medrol - IVPUSH 30 mg BID JESSI Administration Ondansetron HCl 4 mg 10/09/19 10:28 Zofran Injection IVPUSH Q6H PRN NAUSEA AND/OR VOMITING Oxycodone HCl 5 mg 10/09/19 10:28 10/09/19 22:43 Roxicodone - PO 5 mg Q4H PRN Administration PAIN LEVEL 1-5 Pantoprazole Sodium 40 mg 10/10/19 10:00 10/10/19 09:33 Protonix - PO 40 mg DAILY JESSI Administration ASSESSMENT/PLAN: 24 y.o. F w/o PMHx. who presents with progressive muscle weakness over the last month. Pt. states that she was taking care of errands in the house when she collapsed, because of lower extremity weakness. Denied extensive physical activity, drug usage. 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 Admitted for rhabdomylosis. Rheum onboard, rec solumedrol, methotrexate, folic acid. EMG showed evidence of myopathy, axonal motor injury of b/l ulnar and b/l peroneal nerves. Possibly dt compression or neuropathy. Responding to [facility]'s hypnosis therapy. Dr Craft recommended PT(ROM stretching and isometric strenghtening). S/p muscle bx([facility], 10/09/19). CK downtrending. CTH and CTcspine neg after mechanical fall w/o LOC. #Progressive Muscle Weakness -- secondary to rhabdomyolsis of uknown etiology, possibly 2/2 rheum-related muscle pathology > CPK: 14,000 --downtrending > ESR 24, CRP 1.9 > TSH 6.0, T4 1.13, T3 4.0 --likely subclinical hypothyroidism, to be repeated as outpt > Influenza: neg > Lyme serology --pending - Nephro([facility]) consult: --rpt UA --decr protein --IVF --monitor labs and LFTs - Rheumatology([facility]) consult: --probable polymyositis --labs: CHIKA, complement, dsDNA(neg), Lupus anticoagulant, UA --solumedrol 30 mg IV BID, Methotrextae 15 mg PO once per week, Folic acid 1 mg/d --Dr. Liao --EMG --Dr. Norman --muscle biopsy - PM&R([facility]) consult: --EMG(10/08/19): electrophysiological evidence of myopathy/myositis w/ spontaneous activity - Dr Hidalgo --ROM stretching and isometrics strengthening #Mechanical Fall --2/2 to proximal muscle weakness > CTH, CTcspine(10/09/19): neg #Tropinemia --josueley 2/2 to rhabdomyolysis > Troponin 0.29, 0.3, 0.28, 0.29 > EKG: TWI in septal leads and T-wave flattening in V3, with associated dyspnea on exertion after 1 block > Echo(10/06/19): LVEF 65-70% -Cardiology consult to Dr. Howard: --electrolyte repletion --[facility] inflamm myopathy/myositis --fu CK, TNI --rec psych consult for depression #Transaminitis --likely 2/2 to rhabdomyolysis > US Abd: mild diffuse hepatic steatosis -will c/w trend #Microcytic anemia --no known FH, no active menstruation, no signs of GIB > Hgb 9.9, MCV 78.5 - fu iron studies #Depression > Psych([facility]) consult: --likely long standing dysthymia --rec outpt career counseling --will be followed while inpt #pain --post-op - oxycodone 5mg #FEN -NS @ 200, will encourage PO intake as well -monitor electrolytes and replete as needed -Regular Diet #DVT Ppx. Hep SQ Visit type - Emergency Visit Emergency Visit: No - New Patient This patient is new to me today: No - Critical Care Critical Care patient: No ATTENDING PHYSICIAN STATEMENT I saw and evaluated the patient. I reviewed the resident's note and discussed the case with the resident. I agree with the resident's findings and plan as documented. SUBJECTIVE: OBJECTIVE: ASSESSMENT AND PLAN:
[2019-10-10] MEDS: oxyCODONE HCL 5 MG TABLET PO PRN (22:06)
[2019-10-11] MEDS ORDERED: FUROSEMIDE 40 MG/4 ML INJECTABLE VIAL IVPUSH ONE (03:08)
[2019-10-11] MEDS ORDERED: SODIUM CHLORIDE 1,000 ML IV SCH (03:11)
--- NOTE | 2019-10-11 04:59 | PN ---
Progress Note, Physician Chief Complaint: Pt A&Ox3; continued marked proximal muscle weakness of upper and lower limbs. History of Present Illness: SHe was reported crying initially in ER, frustrated over not knowing what was going on with her health. PMhx of breast reduction and abdominoplasty (in [place]; 2014), BL lens placement and removal presenting following a fall. She states she was cleaning and getting ready to take out trash when her legs gave out and she fell down forward on to her knees and her face brushed against the ground. She was not able to get herself up off the floor due to feeling weak. She was on the ground for 25min before EMS came to help. She reports worsening weakness since 2018. She reports proximal muscle distribution of the weakness in her hip flexors and deltoids. She reports weakness is more prominent when walking up the stairs, getting up out of bed, reaching above head, getting off toilet. She states her weakness is worse near the end of a flight of stairs. She also reports muscle soreness in the proximal muscle distribution. She reports SOB and increased WOB when walking long distances. She denies recent travel, camping , hikinh, lifting, exercise, fever, chills, rash, chest pain, GARCIA, LH, dizziness , dysuria. Hx weakness since July,. 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 Lives in her own apt in [place]; prepares her own food; eats well. No cigarettes or alcohol. Reportedly crying initially in ER, frustrated over not knowing what was going on with her health. PMHx: as noted above ROS: as noted SHx: Denies tobacco use; no alcohol use; no rec drugs Allergies: NKDA Denies family hx of CAD or CVA. - Current Medication List Current Medications: Active Medications Fentanyl (Sublimaze Injection -) 50 mcg IVPUSH [id number] PRN PRN Reason: PAIN-PACU ORDER X 4 DOSES ONLY Folic Acid (Folic Acid -) 1 mg PO DAILY [facility] Last Admin: 10/10/19 09:33 Dose: 1 mg Heparin Sodium (Porcine) (Heparin -) 5,000 unit SQ TID [facility] Last Admin: 10/10/19 22:07 Dose: 5,000 unit Sodium Chloride (Normal Saline -) 1,000 mls @ 100 mls/hr IV ASDIR [facility] Last Admin: 10/11/19 03:23 Dose: 100 mls/hr Methotrexate (Mexate -) 15 mg PO Q7D [facility] Methylprednisolone Sodium Succinate (Solu-Medrol -) 30 mg IVPUSH BID [facility] Last Admin: 10/10/19 22:06 Dose: 30 mg Ondansetron HCl (Zofran Injection) 4 mg IVPUSH Q6H PRN PRN Reason: NAUSEA AND/OR VOMITING Oxycodone HCl (Roxicodone -) 5 mg PO Q4H PRN PRN Reason: PAIN LEVEL 1-5 Last Admin: 10/10/19 22:06 Dose: 5 mg Pantoprazole Sodium (Protonix -) 40 mg PO DAILY [facility] Last Admin: 10/10/19 09:33 Dose: 40 mg - Objective Vital Signs: Vital Signs Temperature 97.9 F 10/11/19 01:50 Pulse Rate 66 10/11/19 02:30 Respiratory Rate 20 10/11/19 02:30 Blood Pressure 133/73 10/11/19 02:30 O2 Sat by Pulse Oximetry (%) 98 10/10/19 21:00 Constitutional: Yes: Calm, Obese Eyes: Yes: WNL HENT: Yes: WNL Neck: Yes: WNL Cardiovascular: Yes: WNL Respiratory: Yes: WNL Gastrointestinal: Yes: WNL ...Rectal Exam: Yes: Deferred Genitourinary: Yes: WNL Breast(s): Yes: WNL Musculoskeletal: Yes: Muscle Weakness Extremities: Yes: Cool Edema: Yes Edema: LLE: Trace, RLE: Trace Peripheral Pulses WNL: Yes Integumentary: Yes: WNL Neurological: Yes: Alert, Weakness Psychiatric: Yes: Alert, Oriented, Other (depression) Labs: CBC, BMP 10/10/19 06:00 10/10/19 06:00 INR, PTT INR 1.08 (0.83-1.09) 10/09/19 06:20 Problem List - Problems (1) Hypokalemia Assessment/Plan: f/u after repletion; keep K 4.0-4.5 F/u Mg, PO4. Code(s): E87.6 - HYPOKALEMIA (2) Anxiety about health Code(s): F41.8 - OTHER SPECIFIED ANXIETY DISORDERS (3) Elevated troponin Code(s): R79.89 - OTHER SPECIFIED ABNORMAL FINDINGS OF BLOOD CHEMISTRY (4) Proximal muscle weakness Assessment/Plan: Pt has great trouble lifting her legs even an inch above the bed, and cannot bend her knees without difficulty. The weakness has been ongoing for months, and affects the thighs and shoulders/upper arms primarily. She has had "exzema" for the past few years (never saw a fleet operations manager), affecting the hands (mostly the palms), knees, and sometims patches on her chest and trunk. Apart from knee injury from the fall (which she says she was able to partially break the fall, causing less direct impact), she has had no other trauma. She denies recent viral illness; denies HIV from test done "long ago" (she wishes to be tested again). R/o inflammatory myopathy/myositis Workup may include blood work for autoAbs, e.g. antisynthetase Ab, myositis specific AAb, anti Mi2, anti SRP), EMG, search for viral origin. F/u biopsy. Code(s): M62.81 - MUSCLE WEAKNESS (GENERALIZED) (5) Rhabdomyolysis Assessment/Plan: CK decreasing. Continue IV and PO fluids. Workup for myositis in progress. Code(s): M62.82 - RHABDOMYOLYSIS (6) Transaminitis Code(s): R74.0 - NONSPEC ELEV OF LEVELS OF TRANSAMNS & LACTIC ACID DEHYDRGNSE (7) Anxiety and depression Assessment/Plan: Pt says she has become depressed since entering university. F/u with psychologist. Code(s): F41.9 - ANXIETY DISORDER, UNSPECIFIED; F32.9 - MAJOR DEPRESSIVE DISORDER, SINGLE EPISODE, UNSPECIFIED
[2019-10-11] MEDS: HEPARIN NA (PORCINE) 5,000 UNITS/ML 1ML VIAL SQ SCH ×3 (06:54→21:32)
--- NOTE | 2019-10-11 08:31 | PN ---
Physical Exam: SUBJECTIVE: Patient seen and examined at bedside. Endorses continued diffuse muscle weakness. Overnight was short of breath, and was diuresed with Lasix 20mg IV. She endorses significant improvement this morning. OBJECTIVE: Vital Signs Period Temp Pulse Resp BP Sys/Newell Pulse Ox Last 24 Hr 97.7 F-98.6 F 57-77 20-20 129-165/57-89 98-100 GENERAL: The patient is awake, alert, and fully oriented, in no acute distress. HEAD: Normal with no signs of trauma. EYES: PERRL, extraocular movements intact, sclera anicteric, conjunctiva clear. ENT: Oropharynx clear without exudates, moist mucous membranes. NECK: Trachea midline, full range of motion, supple. LUNGS: Breath sounds equal, clear to auscultation bilaterally, no wheezes, no crackles, no accessory muscle use. HEART: Regular rate and rhythm, S1, S2 without murmur, rub or gallop. ABDOMEN: Soft, nontender, nondistended, normoactive bowel sounds, no guarding, no rebound tenderness. EXTREMITIES: 2+ radial, dorsalis pedis pulses bilaterally, warm, well-perfused. No lower extremity edema. NEUROLOGICAL: Cranial nerves II through XII grossly intact. Normal speech. Strength 4/5 right shoulder flexion, and abduction, 4/5 right hip flexion. Otherwise, strength 5/5 noted; improving. PSYCH: Normal mood, normal affect. SKIN: Warm, dry, normal turgor, no rashes or lesions noted Laboratory Results - last 24 hr 10/08/19 07:15 LA PTT Baseline 39.8 dRVVT Confirm Interp 35.8 Lupus Anticoag Comment Comment: CIHKA Screen Positive H CHIKA Homogeneous Pattern TNP CHIKA Nucleolar Pattern TNP CHIKA Spindle Jackelyn Pattern TNP CHIKA Midbody Pattern TNP CHIKA Centriole Pattern TNP CHIKA Nuclear Dot Pattern TNP CHIKA PCNA Pattern TNP CHIKA Nuclear Membr Pat TNP CHIKA Speckled Pattern 1:80 CHIKA Centromere Pattern TNP Active Medications Generic Name Dose Route Start Last Admin Trade Name Freq PRN Reason Stop Dose Admin Folic Acid 1 mg 10/10/19 10:00 10/10/19 09:33 Folic Acid - PO 1 mg DAILY JESSI Administration Heparin Sodium (Porcine) 5,000 unit 10/09/19 14:00 10/11/19 06:54 Heparin - SQ 5,000 unit TID JESSI Administration Sodium Chloride 1,000 mls @ 100 mls/hr 10/11/19 03:11 10/11/19 03:23 Normal Saline - IV 100 mls/hr ASDIR JESSI Administration Methotrexate 15 mg 10/14/19 10:00 Mexate - PO Q7D JESSI Methylprednisolone Sodium Succinate 30 mg 10/09/19 22:00 10/10/19 22:06 Solu-Medrol - IVPUSH 30 mg BID JESSI Administration Ondansetron HCl 4 mg 10/09/19 10:28 Zofran Injection IVPUSH Q6H PRN NAUSEA AND/OR VOMITING Oxycodone HCl 5 mg 10/09/19 10:28 10/10/19 22:06 Roxicodone - PO 5 mg Q4H PRN Administration PAIN LEVEL 1-5 Pantoprazole Sodium 40 mg 10/10/19 10:00 10/10/19 09:33 Protonix - PO 40 mg DAILY JESSI Administration ASSESSMENT/PLAN: Patient is a 24 year old female with no reported medical history presents with complaint of weakness. Myositis, Rhabdomyolisis -CPK 9466. CHIKA titers positive > 1:80 -IV normal saline at 150mL/ hour. May need daily diuresis with IV Lasix. -s/p muscle biopsy. Follow pathology results. Oxycodone 5mg PO Q hours for pain. -s/p EMG (10/08); reveals evidence of myopathy/myositis -Rheumatology, Nephrology, PM&R consults appreciated -Patient walked only 50 feet with PT; may require rehab prior to DC Tranasaminitis -Likely secondary to rhabdomyolysisi; downtrending -Follow CMP Depression -Patient received inpatient psychiatry counselling -Outpatient psychiatry referral. Currently no SSRI/ SNRI Anemia -Unlikely iron deficiency per iron studies. -Patient will require outpatient follow up. FEN -IV NS at 150mL/ hour -Follow CMP -Regular diet Prophylaxis -Heparin 5000units subq TID Disposition -Continue care in medical- surgical floor Visit type - Emergency Visit Emergency Visit: Yes ED Registration Date: 10/05/19 Care time: The patient presented to the Emergency Department on the above date and was hospitalized for further evaluation of their emergent condition. - New Patient This patient is new to me today: No - Critical Care Critical Care patient: No - Discharge Referral Referred to [facility] Med P.C.: No ATTENDING PHYSICIAN STATEMENT I saw and evaluated the patient. I reviewed the resident's note and discussed the case with the resident. I agree with the resident's findings and plan as documented. SUBJECTIVE: OBJECTIVE: ASSESSMENT AND PLAN:
[2019-10-11] MEDS: PANTOPRAZOLE 40 MG TABLET PO SCH (09:02)
[2019-10-11] MEDS: methylPREDNISolone NA SUCC 40 MG/1 ML VIAL IVPUSH SCH ×2 (09:02→21:32)
[2019-10-11] MEDS: FOLIC ACID 1 MG TABLET (FP) PO SCH (09:02)
--- NOTE | 2019-10-11 09:37 | PN ---
Teaching Attending Note Name of Resident: Isma Reina ATTENDING PHYSICIAN STATEMENT I saw and evaluated the patient. I reviewed the resident's note and discussed the case with the resident. I agree with the resident's findings and plan as documented. SUBJECTIVE: no fever or chills. slight GARCIA.No OSB , no couh today. No ab pain, no numbness tingling or focal weakness. OBJECTIVE: NAD. MMM. CV: RRR, no MRG. No JVD. Lungs: CTAB Ext; trace edema on LEs. no tenderness to palpation over thighs or upper arms. Abd: soft, discomfort over the bladder " I want to urinate" ASSESSMENT AND PLAN: 24 y/o lady with no Sig PMH who presented with weakness 1- Possible myositis 2- subclinical hypothyroidism 3- Rhabdomyolysis 4- Transaminitis due to rhabdo 5- Microcytic anemia 6- Hypertropenemia 7- Volume overload. improved Plan: - Muscle Bx results pending. - cont IVF . CPK slightly higher today. Hold lasix as there i sno signs of flluid overload - cont steroids and MTX/folic - repeat TSH as out pt - monitor renal function and LFTs . labs tomorrow - Iron studies indicate no iron def. f/uw tih heme as out pt to evaluate - CHIKA barely + . Doubt Lpus. DsDNA, and complement are normal . Lyme As neg - heparin for DVT px. - might need repeat EMG/NC as out pt
[2019-10-11] MEDS: SODIUM CHLORIDE 1,000 ML IV SCH ×3 (11:11→18:16)
[2019-10-12] MEDS: oxyCODONE HCL 5 MG TABLET PO PRN ×2 (01:32→22:32)
[2019-10-12] MEDS: HEPARIN NA (PORCINE) 5,000 UNITS/ML 1ML VIAL SQ SCH ×3 (05:58→21:35)
[2019-10-12 06:59] LABS: HEMATOCRIT 30.1 % (32.4-45.2); HEMOGLOBIN 9.5 GM/dL (10.7-15.3); MCH 24.9 pg (25.7-33.7); MCHC 31.7 g/dl (32.0-36.0); MEAN CELL VOLUME 78.7 fl (80-96); MEAN PLT VOLUME 8.4 fl (7.5-11.1); PLATELET COUNT 362 K/MM3 (134-434); RBC 3.82 M/mm3 (3.60-5.2); RDW 16.4 % (11.6-15.6); WHITE BLOOD COUNT 20.2 K/mm3 (4.0-10.0)
[2019-10-12 07:54] LABS: ALBUMIN 2.5 g/dl (3.4-5.0); BILIRUBIN,TOTAL 0.4 mg/dL (0.2-1); BLOOD UREA NITROGEN 11.7 mg/dL (7-18); CALCIUM 8.2 mg/dL (8.5-10.1); CREATININE 0.3 mg/dL (0.55-1.3); MAGNESIUM 1.7 mg/dL (1.8-2.4); PHOSPHOROUS 4.2 mg/dL (2.5-4.9); POTASSIUM 3.9 mmol/L (3.5-5.1); TOT PROT 5.8 g/dl (6.4-8.2)
[2019-10-12] MEDS ORDERED: FUROSEMIDE 40 MG TABLET (FP) PO ONE (09:23)
[2019-10-12] MEDS: FOLIC ACID 1 MG TABLET (FP) PO SCH (09:23)
[2019-10-12] MEDS: methylPREDNISolone NA SUCC 40 MG/1 ML VIAL IVPUSH SCH ×2 (09:23→21:35)
[2019-10-12] MEDS: PANTOPRAZOLE 40 MG TABLET PO SCH (09:23)
[2019-10-12] MEDS ORDERED: MAGNESIUM OXIDE 400 MG TABLET (FP) PO ONE (09:24)
[2019-10-12] MEDS: SODIUM CHLORIDE 1,000 ML IV SCH ×2 (13:27→18:54)
--- NOTE | 2019-10-12 14:54 | PN ---
Progress Note (short form) - Note Progress Note: Subjective: no fever or chills. mild GARCIA on L side. No N/V. no change in vision . no cp or SOB. she feels stronger than before Objective: Vital Signs: Last Vital Signs Temp Pulse Resp BP Pulse Ox 98.0 F 73 18 134/74 100 10/12/19 08:43 10/12/19 08:43 10/12/19 08:43 10/12/19 08:43 10/12/19 09:00 Laboratory Results - last 24 hr 10/12/19 10/12/19 06:35 06:35 WBC 20.2 H RBC 3.82 Hgb 9.5 L Hct 30.1 L MCV 78.7 L MCH 24.9 L MCHC 31.7 L RDW 16.4 H Plt Count 362 MPV 8.4 Sodium 143 Potassium 3.9 Chloride 109 H Carbon Dioxide 27 Anion Gap 7 L BUN 11.7 Creatinine 0.3 L Est GFR (CKD-EPI)AfAm 184.44 Est GFR (CKD-EPI)NonAf 159.13 Random Glucose 104 Calcium 8.2 L Phosphorus 4.2 Magnesium 1.7 L Total Bilirubin 0.4 AST 175 H ALT 233 H Alkaline Phosphatase 29 L Creatine Kinase 6645 H Creatine Kinase Index 2.5 CK-MB (CK-2) 168.6 H Total Protein 5.8 L Albumin 2.5 L Physical Exam: NAD. MMM. CV: RRR, no MRG. No JVD. Lungs: bibasilar crackles Ext; trace edema on LEs. Abd: soft, NT, ND , nl BS Neuro: EOMI, deformed L pupil. No facial droop. strength 4/5 shoulder abduction , 5/5 shoulder flexion , 5/5 biceps /triceps b/l. hip flexion 4/5 , knee flexion /extension 5/5 , ankle dorsiflexion /plantar flexion 5/5. TTP over L sied scalp and L sided neck ASSESSMENT AND PLAN: 24 y/o lady with no Sig PMH who presented with weakness 1- Possible myositis 2- subclinical hypothyroidism 3- Rhabdomyolysis 4- Transaminitis due to rhabdo 5- Microcytic anemia 6- Hypertropenemia 7- Volume overload. Plan: - Muscle Bx results pending. - cont IVF. CPK imroved . give po lasix 40 mg today - cont steroids and MTX/folic - repeat TSH as out pt - monitor renal function and LFTs . - Iron studies indicate no iron def. f/uw tih heme as out pt to evaluate - CHIKA barely + . Doubt Lupus. DsDNA, and complement are normal . Lyme As neg - heparin for DVT px. - might need repeat EMG/NC as out pt - muscle strength improve d. cont PT Visit type - Emergency Visit Emergency Visit: Yes ED Registration Date: 10/05/19 Care time: The patient presented to the Emergency Department on the above date and was hospitalized for further evaluation of their emergent condition. - New Patient This patient is new to me today: No - Critical Care Critical Care patient: No
[2019-10-12] MEDS ORDERED: OXYBUTYNIN CHLORIDE 5 MG TABLET PO PRN (22:00)
[2019-10-13] MEDS: SODIUM CHLORIDE 1,000 ML IV SCH ×5 (01:16→21:35)
[2019-10-13] MEDS: HEPARIN NA (PORCINE) 5,000 UNITS/ML 1ML VIAL SQ SCH ×3 (05:47→21:34)
[2019-10-13] MEDS ORDERED: DOCUSATE SODIUM 100 MG CAPSULE (FP) PO PRN (07:24)
[2019-10-13] MEDS: SENNOSIDES/DOCUSATE COMBO (SENNA PLUS) TABLET (UD) PO SCH ×2 (09:10→21:34)
[2019-10-13] MEDS: FOLIC ACID 1 MG TABLET (FP) PO SCH (09:10)
[2019-10-13] MEDS: methylPREDNISolone NA SUCC 40 MG/1 ML VIAL IVPUSH SCH ×2 (09:10→21:34)
[2019-10-13] MEDS: PANTOPRAZOLE 40 MG TABLET PO SCH (09:10)
[2019-10-13] MEDS ORDERED: FUROSEMIDE 20 MG TABLET (FP) PO ONE (10:00)
--- NOTE | 2019-10-13 12:01 | PN ---
Progress Note, Physician History of Present Illness: Pt seen and examined at bedside. She feels that her strength is improving. - Current Medication List Current Medications: Active Medications Docusate Sodium (Colace -) 100 mg PO BID PRN PRN Reason: CONSTIPATION Folic Acid (Folic Acid -) 1 mg PO DAILY [facility] Last Admin: 10/13/19 09:10 Dose: 1 mg Heparin Sodium (Porcine) (Heparin -) 5,000 unit SQ TID [facility] Last Admin: 10/13/19 05:47 Dose: 5,000 unit Sodium Chloride (Normal Saline -) 1,000 mls @ 150 mls/hr IV ASDIR [facility] Last Admin: 10/13/19 09:17 Dose: 150 mls/hr Methotrexate (Mexate -) 15 mg PO Q7D [facility] Methylprednisolone Sodium Succinate (Solu-Medrol -) 30 mg IVPUSH BID [facility] Last Admin: 10/13/19 09:10 Dose: 30 mg Ondansetron HCl (Zofran Injection) 4 mg IVPUSH Q6H PRN PRN Reason: NAUSEA AND/OR VOMITING Oxycodone HCl (Roxicodone -) 5 mg PO Q4H PRN PRN Reason: PAIN LEVEL 6-10 Last Admin: 10/12/19 22:32 Dose: 5 mg Pantoprazole Sodium (Protonix -) 40 mg PO DAILY [facility] Last Admin: 10/13/19 09:10 Dose: 40 mg Senna/Docusate Sodium (Pericolace -) 1 tablet PO BID [facility] Last Admin: 10/13/19 09:10 Dose: 1 tablet - Objective Vital Signs: Vital Signs Temperature 98.8 F 10/13/19 08:14 Pulse Rate 62 10/13/19 08:14 Respiratory Rate 18 10/13/19 08:14 Blood Pressure 139/82 10/13/19 08:14 O2 Sat by Pulse Oximetry (%) 100 10/12/19 21:00 Constitutional: Yes: Calm Eyes: Yes: Conjunctiva Clear HENT: Yes: Atraumatic Neck: Yes: Supple Cardiovascular: Yes: S1, S2 Respiratory: Yes: CTA Bilaterally Gastrointestinal: Yes: Soft Genitourinary: Yes: WNL Musculoskeletal: Yes: WNL Edema: Yes Edema: LLE: Trace, RLE: Trace Integumentary: Yes: Tattoos Neurological: Yes: Oriented Psychiatric: Yes: Oriented Labs: CBC, BMP 10/12/19 06:35 10/12/19 06:35 INR, PTT INR 1.08 (0.83-1.09) 10/09/19 06:20 Problem List - Problems (1) Rhabdomyolysis Code(s): M62.82 - RHABDOMYOLYSIS Assessment/Plan Current Medications Generic Name Dose Route Start Last Admin Trade Name Freq PRN Reason Stop Dose Admin Docusate Sodium 100 mg 10/13/19 07:24 Colace - PO BID PRN CONSTIPATION Folic Acid 1 mg 10/10/19 10:00 10/13/19 09:10 Folic Acid - PO 1 mg DAILY JESSI Administration Heparin Sodium (Porcine) 5,000 unit 10/09/19 14:00 10/13/19 05:47 Heparin - SQ 5,000 unit TID JESSI Administration Sodium Chloride 1,000 mls @ 150 mls/hr 10/11/19 10:59 10/13/19 09:17 Normal Saline - IV 150 mls/hr ASDIR JESSI Administration Methotrexate 15 mg 10/14/19 10:00 Mexate - PO Q7D [facility] Methylprednisolone Sodium Succinate 30 mg 10/09/19 22:00 10/13/19 09:10 Solu-Medrol - IVPUSH 30 mg BID JESSI Administration Ondansetron HCl 4 mg 10/09/19 10:28 Zofran Injection IVPUSH Q6H PRN NAUSEA AND/OR VOMITING Oxycodone HCl 5 mg 10/12/19 22:10 10/12/19 22:32 Roxicodone - PO 5 mg Q4H PRN Administration PAIN LEVEL 6-10 Pantoprazole Sodium 40 mg 10/10/19 10:00 10/13/19 09:10 Protonix - PO 40 mg DAILY JESSI Administration Senna/Docusate Sodium 1 tablet 10/13/19 10:00 10/13/19 09:10 Pericolace - PO 1 tablet BID JESSI Administration Impression 1. rhabdo 2. hematuria 3. proteinuria 4. transaminitis 5. hypokalemia 6. r/o polymyositis Plan - follow cpk - cont fluids/lasix - follow muscle biopsy - will order repeat ua - rheum follow up
[2019-10-13] MEDS: oxyCODONE HCL 5 MG TABLET PO PRN (14:35)
--- NOTE | 2019-10-13 15:03 | PN ---
Physical Exam: SUBJECTIVE: Patient seen and examined NAEON Complaint of posterior GARCIA, thinks it was related to mechanical fall last week. Endorses increase in BLE strength OBJECTIVE: Vital Signs Period Temp Pulse Resp BP Sys/Newell Pulse Ox Last 24 Hr 97.7 F-98.8 F 62-70 16-20 134-142/56-88 99-100 GENERAL: The patient is awake, alert, and fully oriented, in no acute distress. HEAD: NC/AT EYES: extraocular movements intact, sclera anicteric, conjunctiva clear. No ptosis. ENT: Ears normal, nares patent, oropharynx clear without exudates, moist mucous membranes. No oral ulcers NECK: Trachea midline, full range of motion, supple. Neg cervical LAD LUNGS: CTAB, no accessory muscle use. HEART: Regular rate and rhythm, S1, S2 without murmur, rub or gallop. ABDOMEN: Soft, nontender, nondistended, no guarding, no rebound. EXTREMITIES: 2+ pulses, warm, well-perfused, no edema. Right anterior mid- thigh with surgical dressing w/o strikethrough NEUROLOGICAL: Cranial nerves II through XII grossly intact. Normal speech. Decreased strength 4/5 flexion/extension of RUE shoulder, and RUE elbow flexion/ extension. Decreased flexion/extension of RLE hip. Nonpitting edema of BLE PSYCH: normal mood SKIN: Warm, dry, normal turgor, no rashes or lesions noted Laboratory Results - last 24 hr 10/13/19 09:17 Creatine Kinase 6887 H Creatine Kinase Index 2.5 CK-MB (CK-2) 177.3 H Active Medications Generic Name Dose Route Start Last Admin Trade Name Aneeshq PRN Reason Stop Dose Admin Docusate Sodium 100 mg 10/13/19 07:24 Colace - PO BID PRN CONSTIPATION Folic Acid 1 mg 10/10/19 10:00 10/13/19 09:10 Folic Acid - PO 1 mg DAILY JESSI Administration Heparin Sodium (Porcine) 5,000 unit 10/09/19 14:00 10/13/19 14:15 Heparin - SQ 5,000 unit TID JESSI Administration Sodium Chloride 1,000 mls @ 150 mls/hr 10/11/19 10:59 10/13/19 14:15 Normal Saline - IV 150 mls/hr ASDIR JESSI Administration Methotrexate 15 mg 10/14/19 10:00 Mexate - PO Q7D [facility] Methylprednisolone Sodium Succinate 30 mg 10/09/19 22:00 10/13/19 09:10 Solu-Medrol - IVPUSH 30 mg BID JESSI Administration Ondansetron HCl 4 mg 10/09/19 10:28 Zofran Injection IVPUSH Q6H PRN NAUSEA AND/OR VOMITING Oxycodone HCl 5 mg 10/12/19 22:10 10/13/19 14:35 Roxicodone - PO 5 mg Q4H PRN Administration PAIN LEVEL 6-10 Pantoprazole Sodium 40 mg 10/10/19 10:00 10/13/19 09:10 Protonix - PO 40 mg DAILY JESSI Administration Senna/Docusate Sodium 1 tablet 10/13/19 10:00 10/13/19 09:10 Pericolace - PO 1 tablet BID [facility]I Administration ASSESSMENT/PLAN: 24 y.o. F w/o PMHx. who presents with progressive muscle weakness over the last month. Pt. states that she was taking care of errands in the house when she collapsed, because of lower extremity weakness. Denied extensive physical activity, drug usage. 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 Admitted for rhabdomylosis. Rheum onboard, rec solumedrol, methotrexate, folic acid. EMG showed evidence of myopathy, axonal motor injury of b/l ulnar and b/l peroneal nerves. Possibly dt compression or neuropathy. Responding to Gunser's hypnosis therapy. Dr Craft recommended PT(ROM stretching and isometric strenghtening). S/p muscle bx([facility], 10/09/19). CTH and CTcspine neg after mechanical fall w/o LOC. CK downtrending. 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 Liao --EMG --Dr. Norman --muscle biopsy - PM&R([facility]) consult: --EMG(10/08/19): electrophysiological evidence of myopathy/myositis w/ spontaneous activity - Dr Hidalgo --ROM stretching and isometrics strengthening #Mechanical Fall --2/2 to proximal muscle weakness > CTH, CTcspine(10/09/19): neg #Tropinemia --likley 2/2 to rhabdomyolysis --resolved > Troponin 0.29, 0.3, 0.28, 0.29 > EKG: TWI in septal leads and T-wave flattening in V3, with associated dyspnea on exertion after 1 block > Echo(10/06/19): LVEF 65-70% -Cardiology consult to Dr. Howard: --electrolyte repletion --[facility]ina inflamm myopathy/myositis --fu CK, TNI --rec psych consult for depression #Transaminitis --likely 2/2 to rhabdomyolysis > US Abd: mild diffuse hepatic steatosis -will c/w trend #Microcytic anemia --no known FH, no active menstruation, no signs of GIB > Hgb 9.9, MCV 78.5 - fu iron studies #Depression > Psych([facility]) consult: --likely long standing dysthymia --rec outpt career counseling --will be followed while inpt #pain --post-op - oxycodone 5mg #FEN -NS @ 150, will encourage PO intake as well --lasix PRN -monitor electrolytes and replete as needed -Regular Diet #DVT Ppx. Hep SQ Visit type - Emergency Visit Emergency Visit: No - New Patient This patient is new to me today: No - Critical Care Critical Care patient: No ATTENDING PHYSICIAN STATEMENT I saw and evaluated the patient. I reviewed the resident's note and discussed the case with the resident. I agree with the resident's findings and plan as documented. SUBJECTIVE: OBJECTIVE: ASSESSMENT AND PLAN:
--- NOTE | 2019-10-13 17:28 | PN ---
Teaching Attending Note Name of Resident: Maximino Meraz ATTENDING PHYSICIAN STATEMENT I saw and evaluated the patient. I reviewed the resident's note and discussed the case with the resident. I agree with the resident's findings and plan as documented. SUBJECTIVE: No fever or chills. she cont to feel stronger . L sided pain in scalp. OBJECTIVE: NAD. MMM. CV: RRR, no MRG. No JVD. Lungs: CTAB Ext; trace edema on LEs. ASSESSMENT AND PLAN: 24 y/o lady with no Sig PMH who presented with weakness 1- Possible myositis 2- subclinical hypothyroidism 3- Rhabdomyolysis 4- Transaminitis due to rhabdo 5- Microcytic anemia 6- Hypertropenemia 7- Volume overload. Plan: - Muscle Bx results pending. - cont IVF. give a dose of 20 mg of lasix - cont steroids and MTX/folic - repeat TSH as out pt - monitor renal function and LFTs . - Iron studies indicate no iron def. f/u with heme as out pt to evaluate - heparin for DVT px. - might need repeat EMG/NC as out pt - muscle strength improve d. cont PT - repeat UA ordered - she declined PT today
[2019-10-13 23:29] LABS: URINE APPEARANCE CLEAR; URINE BILIRUBIN NEGATIVE (NEGATIVE); URINE COLOR YELLOW; URINE GLUCOSE (UA) NEGATIVE (NEGATIVE); URINE KETONE NEGATIVE (NEGATIVE); URINE LEUK ESTERASE NEGATIVE (NEGATIVE); URINE NITRITE NEGATIVE (NEGATIVE); URINE PROTEIN NEGATIVE (NEGATIVE); URINE UROBILINOGEN 0.2 mg/dL (0.2-1.0)
[2019-10-14] MEDS: HEPARIN NA (PORCINE) 5,000 UNITS/ML 1ML VIAL SQ SCH ×3 (06:15→21:53)
[2019-10-14] MEDS: SODIUM CHLORIDE 1,000 ML IV SCH ×3 (06:18→18:14)
--- NOTE | 2019-10-14 07:07 | PN ---
Progress Note, Physician Chief Complaint: Pt A&Ox3; no change in (severely weak) proximal muscle strength. History of Present Illness: Ms. Ohara is a 24 yr old black woman with PMhx of breast reduction and abdominoplasty (in [place]; 2014), BL lens placement and removal presenting following a fall. She states she was cleaning and getting ready to take out trash when her legs gave out and she fell down forward on to her knees and her face brushed against the ground. She was not able to get herself up off the floor due to feeling weak. She was on the ground for 25min before EMS came to help. She reports worsening weakness since . She reports proximal muscle distribution of the weakness in her hip flexors and deltoids. She reports weakness is more prominent when walking up the stairs, getting up out of bed, reaching above head, getting off toilet. She states her weakness is worse near the end of walking up a flight of stairs. She also reports muscle soreness in the proximal muscle distribution. She reports SOB and increased WOB when walking long distances. She denies recent travel, camping, hiking, lifting , exercise, fever, chills, rash, chest pain, GARCIA, LH, dizziness, dysuria. Reportedly was crying in ER, frustrated over not knowng what was going on with her health. Hx weakness since July,. 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 Lives in her own apt in [facility]; prepares her own food; eats well. No cigarettes or alcohol. PMHx: as noted above ROS: as noted SHx: Denies tobacco use; no alcohol use; no rec drugs Allergies: NKDA Denies family hx of CAD or CVA. - Current Medication List Current Medications: Active Medications Docusate Sodium (Colace -) 100 mg PO BID PRN PRN Reason: CONSTIPATION Folic Acid (Folic Acid -) 1 mg PO DAILY [facility] Last Admin: 10/13/19 09:10 Dose: 1 mg Heparin Sodium (Porcine) (Heparin -) 5,000 unit SQ TID [facility] Last Admin: 10/14/19 06:15 Dose: 5,000 unit Sodium Chloride (Normal Saline -) 1,000 mls @ 200 mls/hr IV ASDIR [facility]PLACED [facility] Last Admin: 10/14/19 06:18 Dose: 200 mls/hr Methotrexate (Mexate -) 15 mg PO Q7D [facility]PL[facility] Methylprednisolone Sodium Succinate (Solu-Medrol -) 30 mg IVPUSH BID [facility] Last Admin: 10/13/19 21:34 Dose: 30 mg Ondansetron HCl (Zofran Injection) 4 mg IVPUSH Q6H PRN PRN Reason: NAUSEA AND/OR VOMITING Oxycodone HCl (Roxicodone -) 5 mg PO Q4H PRN PRN Reason: PAIN LEVEL 6-10 Last Admin: 10/13/19 14:35 Dose: 5 mg Pantoprazole Sodium (Protonix -) 40 mg PO DAILY [facility] Last Admin: 10/13/19 09:10 Dose: 40 mg Senna/Docusate Sodium (Pericolace -) 1 tablet PO BID [facility] Last Admin: 10/13/19 21:34 Dose: 1 tablet - Objective Vital Signs: Vital Signs Temperature 98.4 F 10/14/19 05:00 Pulse Rate 71 10/14/19 05:00 Respiratory Rate 18 10/14/19 05:00 Blood Pressure 150/74 10/14/19 05:00 O2 Sat by Pulse Oximetry (%) 99 10/13/19 21:00 Constitutional: Yes: Calm, Obese Eyes: Yes: WNL HENT: Yes: WNL Neck: Yes: WNL Cardiovascular: Yes: WNL Respiratory: Yes: WNL Gastrointestinal: Yes: WNL ...Rectal Exam: Yes: Deferred Genitourinary: Yes: WNL Breast(s): Yes: Other (s/p nolan breast reduction years ago) Musculoskeletal: Yes: Muscle Weakness (proximal (arms and legs)) Peripheral Pulses WNL: Yes Integumentary: Yes: WNL Neurological: Yes: Alert, Oriented, Weakness Psychiatric: Yes: Alert, Oriented, Other (anxeity/depression) Labs: CBC, BMP 10/12/19 06:35 10/12/19 06:35 INR, PTT INR 1.08 (0.83-1.09) 10/09/19 06:20 Problem List - Problems (1) Hypokalemia Assessment/Plan: Normal presently; keep K 4.0-4.5 Replace Mg, and keep 2.0-2.4 Code(s): E87.6 - HYPOKALEMIA (2) Anxiety about health Code(s): F41.8 - OTHER SPECIFIED ANXIETY DISORDERS (3) Elevated troponin Code(s): R79.89 - OTHER SPECIFIED ABNORMAL FINDINGS OF BLOOD CHEMISTRY (4) Proximal muscle weakness Assessment/Plan: Pt has great trouble lifting her legs even an inch above the bed, and cannot bend her knees without difficulty. The weakness has been ongoing for months, and affects the thighs and shoulders/upper arms primarily. She has had "exzema" for the past few years (never saw a wagon person), affecting the hands (mostly the palms), knees, and sometims patches on her chest and trunk. Apart from knee injury from the fall (which she says she was able to partially break the fall, causing less direct impact), she has had no other trauma. She denies recent viral illness; denies HIV from test done "long ago" (she wishes to be tested again). R/o inflammatory myopathy/myositis F/u biopsy. Rx per order takers supervisor. Code(s): M62.81 - MUSCLE WEAKNESS (GENERALIZED) (5) Rhabdomyolysis Assessment/Plan: CK decreasing. Continue IV and PO fluids. Workup for myositis in progress. Code(s): M62.82 - RHABDOMYOLYSIS (6) Transaminitis Code(s): R74.0 - NONSPEC ELEV OF LEVELS OF TRANSAMNS & LACTIC ACID DEHYDRGNSE (7) Anxiety and depression Assessment/Plan: Pt says she has become depressed since entering university. F/u with psychologist. Code(s): F41.9 - ANXIETY DISORDER, UNSPECIFIED; F32.9 - MAJOR DEPRESSIVE DISORDER, SINGLE EPISODE, UNSPECIFIED
[2019-10-14 08:27] LABS: ALBUMIN 2.7 g/dl (3.4-5.0); BILIRUBIN,TOTAL 0.3 mg/dL (0.2-1); BLOOD UREA NITROGEN 11.2 mg/dL (7-18); CALCIUM 8.3 mg/dL (8.5-10.1); CREATININE 0.4 mg/dL (0.55-1.3); POTASSIUM 3.9 mmol/L (3.5-5.1); TOT PROT 6.1 g/dl (6.4-8.2)
[2019-10-14] MEDS ORDERED: METHOTREXATE 2.5 MG TABLET PO SCH (10:00)
[2019-10-14] MEDS: FOLIC ACID 1 MG TABLET (FP) PO SCH (10:28)
[2019-10-14] MEDS: PANTOPRAZOLE 40 MG TABLET PO SCH (10:28)
[2019-10-14] MEDS: methylPREDNISolone NA SUCC 40 MG/1 ML VIAL IVPUSH SCH ×2 (10:28→21:54)
[2019-10-14] MEDS: SENNOSIDES/DOCUSATE COMBO (SENNA PLUS) TABLET (UD) PO SCH ×2 (10:29→21:54)
[2019-10-14 10:31] VITALS: BMI 33.7
--- NOTE | 2019-10-14 10:36 | PN ---
Progress Note (short form) - Note Progress Note: The patient was asleep and apparently had not slept during the night. Her nurse was asked about the allegations the patient had made against a nurses aide. He indicated that the allegations were investigated by the o and m supervisor and deemed unfounded. Problem List - Problems (1) Dysthymia Code(s): F34.1 - DYSTHYMIC DISORDER (2) Stress and adjustment reaction Code(s): F43.29 - ADJUSTMENT DISORDER WITH OTHER SYMPTOMS
[2019-10-14] MEDS ORDERED: FUROSEMIDE 20 MG TABLET (FP) PO ONE (11:45)
--- NOTE | 2019-10-14 16:38 | PN ---
Physical Exam: SUBJECTIVE: Patient seen and examined NAEON Endorses swelling of BLE. Denies SOB. Has been urinating a lot OBJECTIVE: Vital Signs Period Temp Pulse Resp BP Sys/Newell Pulse Ox Last 24 Hr 97.5 F-98.8 F 58-71 16-20 142-150/68-83 99-99 GENERAL: The patient is awake, alert, and fully oriented, in no acute distress. HEAD: NC/AT EYES: extraocular movements intact, sclera anicteric, conjunctiva clear. No ptosis. ENT: Ears normal, nares patent, oropharynx clear without exudates, moist mucous membranes. No oral ulcers NECK: Trachea midline, full range of motion, supple. Neg cervical LAD LUNGS: CTAB, no accessory muscle use. HEART: Regular rate and rhythm, S1, S2 without murmur, rub or gallop. ABDOMEN: Soft, nontender, nondistended, no guarding, no rebound. EXTREMITIES: 2+ pulses, warm, well-perfused, no edema. Right anterior mid- thigh with surgical dressing w/o strikethrough NEUROLOGICAL: Cranial nerves II through XII grossly intact. Normal speech. Decreased strength 4/5 flexion/extension of RUE shoulder, and RUE elbow flexion/ extension. Decreased flexion/extension of LLE hip. Nonpitting edema of BLE PSYCH: normal mood SKIN: Warm, dry, normal turgor, no rashes or lesions noted Laboratory Results - last 24 hr 10/13/19 10/14/19 21:50 06:15 Sodium 140 Potassium 3.9 Chloride 106 Carbon Dioxide 28 Anion Gap 7 L BUN 11.2 Creatinine 0.4 L Est GFR (CKD-EPI)AfAm 167.78 Est GFR (CKD-EPI)NonAf 144.76 Random Glucose 104 Calcium 8.3 L Total Bilirubin 0.3 AST 150 H ALT 225 H Alkaline Phosphatase 29 L Creatine Kinase 6226 H Creatine Kinase Index 2.3 CK-MB (CK-2) 144.5 H Total Protein 6.1 L Albumin 2.7 L Urine Color Yellow Urine Appearance Clear Urine pH 6.0 Ur Specific [place] 1.015 Urine Protein Negative Urine Glucose (UA) Negative Urine Ketones Negative Urine Blood Negative Urine Nitrite Negative Urine Bilirubin Negative Urine Urobilinogen 0.2 Ur Leukocyte Esterase Negative Active Medications Generic Name Dose Route Start Last Admin Trade Name Freq PRN Reason Stop Dose Admin Docusate Sodium 100 mg 10/13/19 07:24 Colace - PO BID PRN CONSTIPATION Folic Acid 1 mg 10/10/19 10:00 10/14/19 10:28 Folic Acid - PO 1 mg DAILY JESSI Administration Heparin Sodium (Porcine) 5,000 unit 10/09/19 14:00 10/14/19 13:38 Heparin - SQ 5,000 unit TID JESSI Administration Sodium Chloride 1,000 mls @ 200 mls/hr 10/13/19 16:24 10/14/19 11:46 Normal Saline - IV 200 mls/hr ASDIR JESSI Administration Methotrexate 15 mg 10/14/19 10:00 10/14/19 10:28 Mexate - PO 15 mg Q7D JESSI Administration Methylprednisolone Sodium Succinate 30 mg 10/09/19 22:00 10/14/19 10:28 Solu-Medrol - IVPUSH 30 mg BID JESSI Administration Ondansetron HCl 4 mg 10/09/19 10:28 Zofran Injection IVPUSH Q6H PRN NAUSEA AND/OR VOMITING Oxycodone HCl 5 mg 10/12/19 22:10 10/13/19 14:35 Roxicodone - PO 5 mg Q4H PRN Administration PAIN LEVEL 6-10 Pantoprazole Sodium 40 mg 10/10/19 10:00 10/14/19 10:28 Protonix - PO 40 mg DAILY JESSI Administration Senna/Docusate Sodium 1 tablet 10/13/19 10:00 10/14/19 10:29 Pericolace - PO Not Given BID [facility] ASSESSMENT/PLAN: 24 y.o. F w/o PMHx. who presents with progressive muscle weakness over the last month. Pt. states that she was taking care of errands in the house when she collapsed, because of lower extremity weakness. Denied extensive physical activity, drug usage. 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 Admitted for rhabdomylosis. Rheum onboard, rec solumedrol, methotrexate, folic acid. EMG showed evidence of myopathy, axonal motor injury of b/l ulnar and b/l peroneal nerves. Possibly dt compression or neuropathy. Responding to Gunser's hypnosis therapy. Dr Craft recommended PT(ROM stretching and isometric strenghtening). S/p muscle bx([facility], 10/09/19). CTH and CTcspine neg after mechanical fall w/o LOC. 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 Liao --EMG --Dr. Norman --muscle biopsy - PM&R([facility]) consult: --EMG(10/08/19): electrophysiological evidence of myopathy/myositis w/ spontaneous activity - Dr Hidalgo --ROM stretching and isometrics strengthening #Mechanical Fall --2/2 to proximal muscle weakness > CTH, CTcspine(10/09/19): neg #Tropinemia --likley 2/2 to rhabdomyolysis --resolved > Troponin 0.29, 0.3, 0.28, 0.29 > EKG: TWI in septal leads and T-wave flattening in V3, with associated dyspnea on exertion after 1 block > Echo(10/06/19): LVEF 65-70% -Cardiology consult to Dr. Howard: --electrolyte repletion --[facility] inflamm myopathy/myositis --fu CK, TNI --rec psych consult for depression #Transaminitis --likely 2/2 to rhabdomyolysis > US Abd: mild diffuse hepatic steatosis -will c/w trend #Microcytic anemia --no known FH, no active menstruation, no signs of GIB > Hgb 9.9, MCV 78.5 > iron studies: neg for iron deficiency --outpt anemia w/u(thalessemias, etc) #Depression > Psych([facility]) consult: --likely long standing dysthymia --rec outpt career counseling --will be followed while inpt #pain --post-op - oxycodone 5mg #FEN -NS @ 200, will encourage PO intake as well --lasix PRN -monitor electrolytes and replete as needed -Regular Diet #DVT Ppx. Hep SQ Visit type - Emergency Visit Emergency Visit: No - New Patient This patient is new to me today: No - Critical Care Critical Care patient: No ATTENDING PHYSICIAN STATEMENT I saw and evaluated the patient. I reviewed the resident's note and discussed the case with the resident. I agree with the resident's findings and plan as documented. SUBJECTIVE: OBJECTIVE: ASSESSMENT AND PLAN:
--- NOTE | 2019-10-14 16:59 | PN ---
Progress Note, Physician History of Present Illness: Pt seen and examined at bedside. She is awake and alert. She feels that her strength is improving. - Current Medication List Current Medications: Active Medications Docusate Sodium (Colace -) 100 mg PO BID PRN PRN Reason: CONSTIPATION Folic Acid (Folic Acid -) 1 mg PO DAILY [facility] Last Admin: 10/14/19 10:28 Dose: 1 mg Heparin Sodium (Porcine) (Heparin -) 5,000 unit SQ TID [facility] Last Admin: 10/14/19 13:38 Dose: 5,000 unit Sodium Chloride (Normal Saline -) 1,000 mls @ 200 mls/hr IV ASDIR [facility] Last Admin: 10/14/19 11:46 Dose: 200 mls/hr Methotrexate (Mexate -) 15 mg PO Q7D [facility] Last Admin: 10/14/19 10:28 Dose: 15 mg Methylprednisolone Sodium Succinate (Solu-Medrol -) 30 mg IVPUSH BID [facility] Last Admin: 10/14/19 10:28 Dose: 30 mg Ondansetron HCl (Zofran Injection) 4 mg IVPUSH Q6H PRN PRN Reason: NAUSEA AND/OR VOMITING Oxycodone HCl (Roxicodone -) 5 mg PO Q4H PRN PRN Reason: PAIN LEVEL 6-10 Last Admin: 10/13/19 14:35 Dose: 5 mg Pantoprazole Sodium (Protonix -) 40 mg PO DAILY [facility] Last Admin: 10/14/19 10:28 Dose: 40 mg Senna/Docusate Sodium (Pericolace -) 1 tablet PO BID [facility] Last Admin: 10/14/19 10:29 Dose: Not Given - Objective Vital Signs: Vital Signs Temperature 98.0 F 10/14/19 14:00 Pulse Rate 58 L 10/14/19 14:00 Respiratory Rate 16 10/14/19 14:00 Blood Pressure 142/83 10/14/19 14:00 O2 Sat by Pulse Oximetry (%) 99 10/14/19 09:00 Constitutional: Yes: Calm Eyes: Yes: Conjunctiva Clear HENT: Yes: Atraumatic Neck: Yes: Supple Cardiovascular: Yes: S1, S2 Respiratory: Yes: CTA Bilaterally Gastrointestinal: Yes: Soft Genitourinary: Yes: WNL Musculoskeletal: Yes: WNL Edema: Yes Edema: LLE: 1+, RLE: 1+ Neurological: Yes: Oriented Psychiatric: Yes: Oriented Labs: CBC, BMP 10/12/19 06:35 10/14/19 06:15 INR, PTT INR 1.08 (0.83-1.09) 10/09/19 06:20 Problem List - Problems (1) Rhabdomyolysis Code(s): M62.82 - RHABDOMYOLYSIS Assessment/Plan Current Medications Generic Name Dose Route Start Last Admin Trade Name Freq PRN Reason Stop Dose Admin Docusate Sodium 100 mg 10/13/19 07:24 Colace - PO BID PRN CONSTIPATION Folic Acid 1 mg 10/10/19 10:00 10/14/19 10:28 Folic Acid - PO 1 mg DAILY JESSI Administration Heparin Sodium (Porcine) 5,000 unit 10/09/19 14:00 10/14/19 13:38 Heparin - SQ 5,000 unit TID JESSI Administration Sodium Chloride 1,000 mls @ 200 mls/hr 10/13/19 16:24 10/14/19 11:46 Normal Saline - IV 200 mls/hr ASDIR JESSI Administration Methotrexate 15 mg 10/14/19 10:00 10/14/19 10:28 Mexate - PO 15 mg Q7D JESSI Administration Methylprednisolone Sodium Succinate 30 mg 10/09/19 22:00 10/14/19 10:28 Solu-Medrol - IVPUSH 30 mg BID JESSI Administration Ondansetron HCl 4 mg 10/09/19 10:28 Zofran Injection IVPUSH Q6H PRN NAUSEA AND/OR VOMITING Oxycodone HCl 5 mg 10/12/19 22:10 10/13/19 14:35 Roxicodone - PO 5 mg Q4H PRN Administration PAIN LEVEL 6-10 Pantoprazole Sodium 40 mg 10/10/19 10:00 10/14/19 10:28 Protonix - PO 40 mg DAILY JESSI Administration Senna/Docusate Sodium 1 tablet 10/13/19 10:00 10/14/19 10:29 Pericolace - PO Not Given BID [facility] Impression 1. rhabdo 2. hematuria 3. proteinuria 4. transaminitis 5. hypokalemia 6. r/o polymyositis Plan - cpk slowly improving - cont fluids - cont lasix - follow muscle biopsy - rheum follow up
--- NOTE | 2019-10-14 17:28 | PN ---
Teaching Attending Note Name of Resident: Maximino Meraz ATTENDING PHYSICIAN STATEMENT I saw and evaluated the patient. I reviewed the resident's note and discussed the case with the resident. I agree with the resident's findings and plan as documented. SUBJECTIVE: No fever or chills.no CP , has slight GARCIA on L . no n/v . she feels stronger OBJECTIVE: NAD. MMM. CV: RRR, no MRG. No JVD. Lungs: CTAB Ext; trace edema on LEs. ASSESSMENT AND PLAN: 24 y/o lady with no Significant PMH who presented with weakness 1- Possible myositis 2- subclinical hypothyroidism 3- Rhabdomyolysis 4- Transaminitis due to rhabdo 5- Microcytic anemia 6- Hypertropenemia 7- Volume overload. Plan: - Muscle Bx results pending. it might take few days ( lab called ) - cont IVF. give a dose of 20 mg of lasix today - CPK might be expected to be persistently elevated with myositis. will ask renal when to stop IVF. - cont steroids and MTX/folic - repeat TSH as out pt - monitor renal function and LFTs. - Iron studies indicate no iron def. f/u with heme as out pt to evaluate - heparin for DVT px. - might need repeat EMG/NC as out pt - cont PT
[2019-10-14] MEDS: oxyCODONE HCL 5 MG TABLET PO PRN (21:53)
--- NOTE | 2019-10-15 05:08 | PN ---
Progress Note, Physician Chief Complaint: Pt A&Ox3; able to stand and walk slowly; SOB just on standing; c/o bilateral LE swelling, which she has not had in the past. + Weght gain. History of Present Illness: Ms. Ohara is a 24 yr old black woman with PMhx of breast reduction and abdominoplasty (in [place]; 2014), BL lens placement and removal presenting following a fall. She states she was cleaning and getting ready to take out trash when her legs gave out and she fell down forward on to her knees and her face brushed against the ground. She was not able to get herself up off the floor due to feeling weak. She was on the ground for 25min before EMS came to help. She reports worsening weakness since . She reports proximal muscle distribution of the weakness in her hip flexors and deltoids. She reports weakness is more prominent when walking up the stairs, getting up out of bed, reaching above head, getting off toilet. She states her weakness is worse near the end of walking up a flight of stairs. She also reports muscle soreness in the proximal muscle distribution. She reports SOB and increased WOB when walking long distances. She denies recent travel, camping, hiking, lifting , exercise, fever, chills, rash, chest pain, GARCIA, LH, dizziness, dysuria. Reportedly was crying in ER, frustrated over not knowng what was going on with her health. Hx weakness since July,. 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 Lives in her own apt in [place]; prepares her own food; eats well. No cigarettes or alcohol. PMHx: as noted above ROS: as noted SHx: Denies tobacco use; no alcohol use; no rec drugs Allergies: NKDA Denies family hx of CAD or CVA. - Current Medication List Current Medications: Active Medications Docusate Sodium (Colace -) 100 mg PO BID PRN PRN Reason: CONSTIPATION Folic Acid (Folic Acid -) 1 mg PO DAILY [facility] Last Admin: 10/14/19 10:28 Dose: 1 mg Heparin Sodium (Porcine) (Heparin -) 5,000 unit SQ TID [facility] Last Admin: 10/14/19 21:53 Dose: 5,000 unit Sodium Chloride (Normal Saline -) 1,000 mls @ 200 mls/hr IV ASDIR [facility] Last Admin: 10/14/19 18:14 Dose: 200 mls/hr Methotrexate (Mexate -) 15 mg PO Q7D [facility] Last Admin: 10/14/19 10:28 Dose: 15 mg Methylprednisolone Sodium Succinate (Solu-Medrol -) 30 mg IVPUSH BID [facility] Last Admin: 10/14/19 21:54 Dose: 30 mg Ondansetron HCl (Zofran Injection) 4 mg IVPUSH Q6H PRN PRN Reason: NAUSEA AND/OR VOMITING Oxycodone HCl (Roxicodone -) 5 mg PO Q4H PRN PRN Reason: PAIN LEVEL 6-10 Last Admin: 10/14/19 21:53 Dose: 5 mg Pantoprazole Sodium (Protonix -) 40 mg PO DAILY [facility] Last Admin: 10/14/19 10:28 Dose: 40 mg Senna/Docusate Sodium (Pericolace -) 1 tablet PO BID [facility] Last Admin: 10/14/19 21:54 Dose: Not Given - Objective Vital Signs: Vital Signs Temperature 98.4 F 10/14/19 23:00 Pulse Rate 62 10/14/19 23:00 Respiratory Rate 18 10/14/19 23:00 Blood Pressure 152/79 10/14/19 23:00 O2 Sat by Pulse Oximetry (%) 100 10/14/19 21:00 Constitutional: Yes: Obese Eyes: Yes: WNL HENT: Yes: WNL Neck: Yes: WNL Cardiovascular: Yes: Regular Rate and Rhythm Respiratory: Yes: Regular, SOB on Exertion Gastrointestinal: Yes: WNL ...Rectal Exam: Yes: Deferred Genitourinary: Yes: Polyuria Breast(s): Yes: WNL Musculoskeletal: Yes: Muscle Weakness Extremities: Yes: Other Edema: Yes Edema: LLE: 1+, RLE: 1+ Peripheral Pulses WNL: Yes Integumentary: Yes: WNL Neurological: Yes: Alert, Oriented, Weakness Psychiatric: Yes: Alert, Oriented, Other (anxious) Labs: CBC, BMP 10/12/19 06:35 10/14/19 06:15 INR, PTT INR 1.08 (0.83-1.09) 10/09/19 06:20 Abnormal Lab Results 10/14/19 06:15 Anion Gap 7 L Creatinine 0.4 L Calcium 8.3 L AST 150 H ALT 225 H Alkaline Phosphatase 29 L Creatine Kinase 6226 H CK-MB (CK-2) 144.5 H Total Protein 6.1 L Albumin 2.7 L Problem List - Problems (1) Hypokalemia Assessment/Plan: Normal presently; keep K 4.0-4.5 Replace Mg, and keep 2.0-2.4 Code(s): E87.6 - HYPOKALEMIA (2) Anxiety about health Code(s): F41.8 - OTHER SPECIFIED ANXIETY DISORDERS (3) Elevated troponin Code(s): R79.89 - OTHER SPECIFIED ABNORMAL FINDINGS OF BLOOD CHEMISTRY (4) Proximal muscle weakness Assessment/Plan: Pt had great trouble initially lifting her legs even an inch above the bed, and could not bend her knees without difficulty; some improvement now. The weakness has been ongoing for months, and affects the thighs and shoulders/upper arms primarily. She has had "exzema" for the past few years (never saw a trim technician), affecting the hands (mostly the palms), knees, and sometims patches on her chest and trunk. Apart from knee injury from the fall (which she says she was able to partially break the fall, causing less direct impact), she has had no other trauma. She denies recent viral illness; denies HIV from test done "long ago" (she wishes to be tested again). R/o inflammatory myopathy/myositis (Recluse spider can be another cause of rhabdomyolysis, though pt has no remembrance of bite). F/u biopsy. On methotrexate, steroids. Code(s): M62.81 - MUSCLE WEAKNESS (GENERALIZED) (5) Rhabdomyolysis Assessment/Plan: CK, LFTs decreasing. On methotrexate and steroids. Renal function appears normal. Signs of volume overload (bilateral LE edema; weight gain; IBARRA). Consider stopping IVF and f/u CK, LFts, BUN/Cr, Is and Os. Code(s): M62.82 - RHABDOMYOLYSIS (6) Transaminitis Code(s): R74.0 - NONSPEC ELEV OF LEVELS OF TRANSAMNS & LACTIC ACID DEHYDRGNSE (7) Anxiety and depression Code(s): F41.9 - ANXIETY DISORDER, UNSPECIFIED; F32.9 - MAJOR DEPRESSIVE DISORDER, SINGLE EPISODE, UNSPECIFIED
[2019-10-15] MEDS: HEPARIN NA (PORCINE) 5,000 UNITS/ML 1ML VIAL SQ SCH ×3 (05:52→21:34)
[2019-10-15] MEDS: SODIUM CHLORIDE 1,000 ML IV SCH ×4 (05:53→22:37)
[2019-10-15] MEDS: FOLIC ACID 1 MG TABLET (FP) PO SCH (09:06)
[2019-10-15] MEDS: PANTOPRAZOLE 40 MG TABLET PO SCH (09:07)
[2019-10-15] MEDS: methylPREDNISolone NA SUCC 40 MG/1 ML VIAL IVPUSH SCH ×2 (09:07→21:36)
[2019-10-15] MEDS: SENNOSIDES/DOCUSATE COMBO (SENNA PLUS) TABLET (UD) PO SCH ×2 (09:12→21:35)
--- NOTE | 2019-10-15 09:19 | PN ---
Teaching Attending Note Name of Resident: Maximino Meraz ATTENDING PHYSICIAN STATEMENT I saw and evaluated the patient. I reviewed the resident's note and discussed the case with the resident. I agree with the resident's findings and plan as documented. SUBJECTIVE: Patient is happier today, wants to know when can she be discharged. OBJECTIVE: Vital Signs Temperature 97.5 F L 10/15/19 05:40 Pulse Rate 61 10/15/19 05:40 Respiratory Rate 18 10/15/19 05:40 Blood Pressure 131/77 10/15/19 05:40 O2 Sat by Pulse Oximetry (%) 100 10/14/19 21:00 GENERAL: The patient is awake, alert, and fully oriented, in no acute distress. HEAD: Normal with no signs of trauma. EYES: PERRL, extraocular movements intact, sclera anicteric, conjunctiva clear. ENT: Ears normal, oropharynx clear without exudates, moist mucous membranes. NECK: Trachea midline, full range of motion, supple. LUNGS: Breath sounds equal, clear to auscultation bilaterally, no wheezes, no crackles, no accessory muscle use. HEART: Regular rate and rhythm, S1, S2 without murmur, rub or gallop. ABDOMEN: Soft, nontender, nondistended, normoactive bowel sounds, no guarding, no rebound, no hepatosplenomegaly, no masses. EXTREMITIES: 2+ pulses, warm, well-perfused, thighs are mildly edematous, also right thigh opened area where the bx was done. NEUROLOGICAL: Cranial nerves II through XII grossly intact. Normal speech, gait not observed. PSYCH: Normal mood, normal affect. SKIN: Warm, dry, normal turgor, no rashes or lesions noted CBCD WBC 20.2 K/mm3 (4.0-10.0) H 10/12/19 06:35 RBC 3.82 M/mm3 (3.60-5.2) 10/12/19 06:35 Hgb 9.5 GM/dL (10.7-15.3) L 10/12/19 06:35 Hct 30.1 % (32.4-45.2) L 10/12/19 06:35 MCV 78.7 fl (80-96) L 10/12/19 06:35 MCHC 31.7 g/dl (32.0-36.0) L 10/12/19 06:35 RDW 16.4 % (11.6-15.6) H 10/12/19 06:35 Plt Count 362 K/MM3 (134-434) 10/12/19 06:35 MPV 8.4 fl (7.5-11.1) 10/12/19 06:35 CMP Sodium 140 mmol/L (136-145) 10/14/19 06:15 Potassium 3.9 mmol/L (3.5-5.1) 10/14/19 06:15 Chloride 106 mmol/L (98-107) 10/14/19 06:15 Carbon Dioxide 28 mmol/L (21-32) 10/14/19 06:15 Anion Gap 7 MMOL/L (8-16) L 10/14/19 06:15 BUN 11.2 mg/dL (7-18) 10/14/19 06:15 Creatinine 0.4 mg/dL (0.55-1.3) L 10/14/19 06:15 Random Glucose 104 mg/dL (74-106) 10/14/19 06:15 Calcium 8.3 mg/dL (8.5-10.1) L 10/14/19 06:15 Total Bilirubin 0.3 mg/dL (0.2-1) 10/14/19 06:15 AST 150 U/L (15-37) H 10/14/19 06:15 ALT 225 U/L (13-61) H 10/14/19 06:15 Alkaline Phosphatase 29 U/L (45-117) L 10/14/19 06:15 Total Protein 6.1 g/dl (6.4-8.2) L 10/14/19 06:15 Albumin 2.7 g/dl (3.4-5.0) L 10/14/19 06:15 CARDIAC ENZYMES Creatine Kinase 4988 U/L (26-192) H 10/15/19 06:45 Troponin I 0.29 ng/ml (0.00-0.05) H 10/05/19 20:27 Current Medications Generic Name Dose Route Start Last Admin Trade Name Freq PRN Reason Stop Dose Admin Docusate Sodium 100 mg 10/13/19 07:24 Colace - PO BID PRN CONSTIPATION Folic Acid 1 mg 10/10/19 10:00 10/15/19 09:06 Folic Acid - PO 1 mg DAILY JESSI Administration Heparin Sodium (Porcine) 5,000 unit 10/09/19 14:00 10/15/19 05:52 Heparin - SQ 5,000 unit TID JESSI Administration Sodium Chloride 1,000 mls @ 200 mls/hr 10/13/19 16:24 10/15/19 05:53 Normal Saline - IV 200 mls/hr ASDIR JESSI Administration Methotrexate 15 mg 10/14/19 10:00 10/14/19 10:28 Mexate - PO 15 mg Q7D JESSI Administration Methylprednisolone Sodium Succinate 30 mg 10/09/19 22:00 10/15/19 09:07 Solu-Medrol - IVPUSH 30 mg BID JESSI Administration Ondansetron HCl 4 mg 10/09/19 10:28 Zofran Injection IVPUSH Q6H PRN NAUSEA AND/OR VOMITING Oxycodone HCl 5 mg 10/12/19 22:10 10/14/19 21:53 Roxicodone - PO 5 mg Q4H PRN Administration PAIN LEVEL 6-10 Pantoprazole Sodium 40 mg 10/10/19 10:00 10/15/19 09:07 Protonix - PO 40 mg DAILY JESSI Administration Senna/Docusate Sodium 1 tablet 10/13/19 10:00 10/15/19 09:12 Pericolace - PO Not Given BID [facility] Home Medications Medication Instructions Recorded NK [No Known Home Medication] 10/05/19 EMG report: Abnormal study, there is an evidence of myopathy/myositis with spontaneous activity. Evidence of axonal motor injury to the bl common peroneal nerves maybe due to swelling and edema. CXR: breast implants , no acute pathology ASSESSMENT AND PLAN: Patient is a 24yof with no Significant PMHx who presented with severe LEs muscle weakness. #Right thigh bx is slightly open on the side, need revaluation of the vascular surgeon. #Swelling of both thighs due to IVF: will give another 20mg of po lasix. #Acute Rhabdomyolysis due to having myositis, rheumatology on the case, waiting for the bx result. continue IVF # Possible myositis waiting for bx result, will check with the pathology department.cont steroids and MTX/folic # subclinical hypothyroidism:repeat TSH as out pt. # Transaminitis due to rhabdo ,monitor renal function and LFTs. # Microcytic anemia: Iron studies indicate no iron def. f/u with heme as out pt to evaluate # Hypertropenemia DVt px: heparin might need repeat EMG/NC as out pt continue PT
[2019-10-15] MEDS ORDERED: FUROSEMIDE 20 MG TABLET (FP) PO ONE (11:21)
--- NOTE | 2019-10-15 11:51 | PN ---
Progress Note, Physician History of Present Illness: No new events. - Current Medication List Current Medications: Active Medications Docusate Sodium (Colace -) 100 mg PO BID PRN PRN Reason: CONSTIPATION Folic Acid (Folic Acid -) 1 mg PO DAILY [facility] Last Admin: 10/15/19 09:06 Dose: 1 mg Heparin Sodium (Porcine) (Heparin -) 5,000 unit SQ TID [facility] Last Admin: 10/15/19 05:52 Dose: 5,000 unit Sodium Chloride (Normal Saline -) 1,000 mls @ 200 mls/hr IV ASDIR [facility] Last Admin: 10/15/19 09:59 Dose: 200 mls/hr Methotrexate (Mexate -) 15 mg PO Q7D [facility] Last Admin: 10/14/19 10:28 Dose: 15 mg Methylprednisolone Sodium Succinate (Solu-Medrol -) 30 mg IVPUSH BID [facility] Last Admin: 10/15/19 09:07 Dose: 30 mg Ondansetron HCl (Zofran Injection) 4 mg IVPUSH Q6H PRN PRN Reason: NAUSEA AND/OR VOMITING Oxycodone HCl (Roxicodone -) 5 mg PO Q4H PRN PRN Reason: PAIN LEVEL 6-10 Last Admin: 10/14/19 21:53 Dose: 5 mg Pantoprazole Sodium (Protonix -) 40 mg PO DAILY [facility] Last Admin: 10/15/19 09:07 Dose: 40 mg Senna/Docusate Sodium (Pericolace -) 1 tablet PO BID [facility] Last Admin: 10/15/19 09:12 Dose: Not Given - Objective Vital Signs: Vital Signs Temperature 98.2 F 10/15/19 09:00 Pulse Rate 66 10/15/19 09:00 Respiratory Rate 18 10/15/19 09:00 Blood Pressure 145/76 10/15/19 09:00 O2 Sat by Pulse Oximetry (%) 100 10/14/19 21:00 Constitutional: Yes: Calm Eyes: Yes: Conjunctiva Clear HENT: Yes: Atraumatic Cardiovascular: Yes: S1, S2 Respiratory: Yes: CTA Bilaterally Gastrointestinal: Yes: Soft Genitourinary: Yes: WNL Musculoskeletal: Yes: Muscle Weakness Edema: Yes Edema: LLE: Trace, RLE: Trace Integumentary: Yes: Tattoos Neurological: Yes: Oriented Psychiatric: Yes: Oriented Labs: CBC, BMP 10/12/19 06:35 10/14/19 06:15 INR, PTT INR 1.08 (0.83-1.09) 10/09/19 06:20 Problem List - Problems (1) Rhabdomyolysis Code(s): M62.82 - RHABDOMYOLYSIS Assessment/Plan Current Medications Generic Name Dose Route Start Last Admin Trade Name Freq PRN Reason Stop Dose Admin Docusate Sodium 100 mg 10/13/19 07:24 Colace - PO BID PRN CONSTIPATION Folic Acid 1 mg 10/10/19 10:00 10/14/19 10:28 Folic Acid - PO 1 mg DAILY JESSI Administration Heparin Sodium (Porcine) 5,000 unit 10/09/19 14:00 10/14/19 13:38 Heparin - SQ 5,000 unit TID JESSI Administration Sodium Chloride 1,000 mls @ 200 mls/hr 10/13/19 16:24 10/14/19 11:46 Normal Saline - IV 200 mls/hr ASDIR JESSI Administration Methotrexate 15 mg 10/14/19 10:00 10/14/19 10:28 Mexate - PO 15 mg Q7D JESSI Administration Methylprednisolone Sodium Succinate 30 mg 10/09/19 22:00 10/14/19 10:28 Solu-Medrol - IVPUSH 30 mg BID JESSI Administration Ondansetron HCl 4 mg 10/09/19 10:28 Zofran Injection IVPUSH Q6H PRN NAUSEA AND/OR VOMITING Oxycodone HCl 5 mg 10/12/19 22:10 10/13/19 14:35 Roxicodone - PO 5 mg Q4H PRN Administration PAIN LEVEL 6-10 Pantoprazole Sodium 40 mg 10/10/19 10:00 10/14/19 10:28 Protonix - PO 40 mg DAILY JESSI Administration Senna/Docusate Sodium 1 tablet 10/13/19 10:00 10/14/19 10:29 Pericolace - PO Not Given BID [facility] Impression 1. rhabdo 2. hematuria 3. proteinuria 4. transaminitis 5. hypokalemia 6. r/o polymyositis Plan - cpk improving - monitor lytes - follow muscle biopsy - rheum follow up
--- NOTE | 2019-10-15 14:27 | PN ---
Physical Exam: SUBJECTIVE: Patient seen and examined OBJECTIVE: Vital Signs Period Temp Pulse Resp BP Sys/Newell Pulse Ox Last 24 Hr 97.5 F-98.4 F 58-69 18-18 114-152/76-80 100 GENERAL: The patient is awake, alert, and fully oriented, in no acute distress. HEAD: NC/AT EYES: extraocular movements intact, sclera anicteric, conjunctiva clear. No ptosis. ENT: Ears normal, nares patent, oropharynx clear without exudates, moist mucous membranes. No oral ulcers NECK: Trachea midline, full range of motion, supple. Neg cervical LAD LUNGS: CTAB, no accessory muscle use. HEART: Regular rate and rhythm, S1, S2 without murmur, rub or gallop. ABDOMEN: Soft, nontender, nondistended, no guarding, no rebound. EXTREMITIES: 2+ pulses, warm, well-perfused, no edema. Right anterior mid- thigh with surgical dressing w/o strikethrough NEUROLOGICAL: Cranial nerves II through XII grossly intact. Normal speech. Decreased strength 4/5 flexion/extension of RUE shoulder, and RUE elbow flexion/ extension. Decreased flexion/extension of LLE hip. Nonpitting edema of BLE PSYCH: normal mood SKIN: Warm, dry, normal turgor, no rashes or lesions noted Laboratory Results - last 24 hr 10/15/19 06:45 Creatine Kinase 4988 H Creatine Kinase Index 2.2 CK-MB (CK-2) 114.2 H Active Medications Generic Name Dose Route Start Last Admin Trade Name Freq PRN Reason Stop Dose Admin Docusate Sodium 100 mg 10/13/19 07:24 Colace - PO BID PRN CONSTIPATION Folic Acid 1 mg 10/10/19 10:00 10/15/19 09:06 Folic Acid - PO 1 mg DAILY JESSI Administration Heparin Sodium (Porcine) 5,000 unit 10/09/19 14:00 10/15/19 13:09 Heparin - SQ 5,000 unit TID JESSI Administration Sodium Chloride 1,000 mls @ 200 mls/hr 10/13/19 16:24 10/15/19 09:59 Normal Saline - IV 200 mls/hr ASDIR JESSI Administration Methotrexate 15 mg 10/14/19 10:00 10/14/19 10:28 Mexate - PO 15 mg Q7D JESSI Administration Methylprednisolone Sodium Succinate 30 mg 10/09/19 22:00 10/15/19 09:07 Solu-Medrol - IVPUSH 30 mg BID JESSI Administration Ondansetron HCl 4 mg 10/09/19 10:28 Zofran Injection IVPUSH Q6H PRN NAUSEA AND/OR VOMITING Oxycodone HCl 5 mg 10/12/19 22:10 10/14/19 21:53 Roxicodone - PO 5 mg Q4H PRN Administration PAIN LEVEL 6-10 Pantoprazole Sodium 40 mg 10/10/19 10:00 10/15/19 09:07 Protonix - PO 40 mg DAILY JESSI Administration Senna/Docusate Sodium 1 tablet 10/13/19 10:00 10/15/19 09:12 Pericolace - PO Not Given BID JESSI ASSESSMENT/PLAN: 24 y.o. F w/o PMHx. who presents with progressive muscle weakness over the last month. Pt. states that she was taking care of errands in the house when she collapsed, because of lower extremity weakness. Denied extensive physical activity, drug usage. 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 Admitted for rhabdomylosis. Rheum onboard, rec solumedrol, methotrexate, folic acid. EMG showed evidence of myopathy, axonal motor injury of b/l ulnar and b/l peroneal nerves. Possibly dt compression or neuropathy. Responding to Gunser's hypnosis therapy. Dr Craft recommended PT(ROM stretching and isometric strenghtening). S/p muscle bx(Norman, 10/09/19). CTH and CTcspine neg after mechanical fall w/o LOC. 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 Liao --EMG --Dr. Norman --muscle biopsy - PM&R([facility]) consult: --EMG(10/08/19): electrophysiological evidence of myopathy/myositis w/ spontaneous activity - Dr Hidalgo --ROM stretching and isometrics strengthening #Mechanical Fall --2/2 to proximal muscle weakness > CTH, CTcspine(10/09/19): neg #Tropinemia --likley 2/2 to rhabdomyolysis --resolved > Troponin 0.29, 0.3, 0.28, 0.29 > EKG: TWI in septal leads and T-wave flattening in V3, with associated dyspnea on exertion after 1 block > Echo(10/06/19): LVEF 65-70% -Cardiology consult to Dr. Howard: --electrolyte repletion --[facility] inflamm myopathy/myositis --fu CK, TNI --rec psych consult for depression #Transaminitis --likely 2/2 to rhabdomyolysis > US Abd: mild diffuse hepatic steatosis -will c/w trend #Microcytic anemia --no known FH, no active menstruation, no signs of GIB > Hgb 9.9, MCV 78.5 > iron studies: neg for iron deficiency --outpt anemia w/u(thalessemias, etc) #Depression > Psych([facility]ser) consult: --likely long standing dysthymia --rec outpt career counseling --will be followed while inpt #pain --post-op - oxycodone 5mg #FEN -NS @ 200, will encourage PO intake as well --lasix PRN -monitor electrolytes and replete as needed -Regular Diet #DVT Ppx. Hep SQ Visit type - Emergency Visit Emergency Visit: No - New Patient This patient is new to me today: No - Critical Care Critical Care patient: No ATTENDING PHYSICIAN STATEMENT I saw and evaluated the patient. I reviewed the resident's note and discussed the case with the resident. I agree with the resident's findings and plan as documented. SUBJECTIVE: OBJECTIVE: ASSESSMENT AND PLAN:
[2019-10-15] MEDS: ONDANSETRON 4 MG/2 ML VIAL IVPUSH PRN (19:42)
[2019-10-15] MEDS: oxyCODONE HCL 5 MG TABLET PO PRN (19:43)
[2019-10-16] MEDS: HEPARIN NA (PORCINE) 5,000 UNITS/ML 1ML VIAL SQ SCH (05:50)
[2019-10-16 07:56] LABS: CALCIUM 7.8 mg/dL (8.5-10.1); CREATININE 0.4 mg/dL (0.55-1.3); POTASSIUM 3.8 mmol/L (3.5-5.1)
--- NOTE | 2019-10-16 08:34 | PN ---
Teaching Attending Note Name of Resident: Maximino Meraz ATTENDING PHYSICIAN STATEMENT I saw and evaluated the patient. I reviewed the resident's note and discussed the case with the resident. I agree with the resident's findings and plan as documented. SUBJECTIVE: Patient is comfortable with no acute distress. Vital Signs Temperature 97.4 F L 10/16/19 06:00 Pulse Rate 63 10/16/19 06:00 Respiratory Rate 18 10/16/19 06:00 Blood Pressure 126/74 10/16/19 06:00 O2 Sat by Pulse Oximetry (%) 100 10/15/19 21:00 GENERAL: The patient is awake, alert, and fully oriented, in no acute distress. HEAD: Normal with no signs of trauma. EYES: PERRL, EOMI, sclera anicteric, conjunctiva clear. ENT: Ears normal, oropharynx clear without exudates, moist mucous membranes. NECK: Trachea midline, full range of motion, supple. LUNGS: Breath sounds equal, clear to auscultation bilaterally, no wheezes, no crackles, no accessory muscle use. HEART: Regular rate and rhythm, S1, S2 without murmur, rub or gallop. ABDOMEN: Soft, NT,ND, normoactive bowel sounds, no guarding, no rebound, no hepatosplenomegaly, no masses. EXTREMITIES: 2+ pulses, warm, well-perfused, thighs are mildly edematous, right thigh s/p bx . NEUROLOGICAL: Cranial nerves II through XII grossly intact. Normal speech, gait not observed. PSYCH: Normal mood, normal affect. SKIN: Warm, dry, normal turgor, no rashes or lesions noted CBCD WBC 20.2 K/mm3 (4.0-10.0) H 10/12/19 06:35 RBC 3.82 M/mm3 (3.60-5.2) 10/12/19 06:35 Hgb 9.5 GM/dL (10.7-15.3) L 10/12/19 06:35 Hct 30.1 % (32.4-45.2) L 10/12/19 06:35 MCV 78.7 fl (80-96) L 10/12/19 06:35 MCHC 31.7 g/dl (32.0-36.0) L 10/12/19 06:35 RDW 16.4 % (11.6-15.6) H 10/12/19 06:35 Plt Count 362 K/MM3 (134-434) 10/12/19 06:35 MPV 8.4 fl (7.5-11.1) 10/12/19 06:35 CMP Sodium 138 mmol/L (136-145) 10/16/19 05:30 Potassium 3.8 mmol/L (3.5-5.1) 10/16/19 05:30 Chloride 105 mmol/L (98-107) 10/16/19 05:30 Carbon Dioxide 26 mmol/L (21-32) 10/16/19 05:30 Anion Gap 7 MMOL/L (8-16) L 10/16/19 05:30 BUN 9.0 mg/dL (7-18) 10/16/19 05:30 Creatinine 0.4 mg/dL (0.55-1.3) L 10/16/19 05:30 Random Glucose 110 mg/dL (74-106) H 10/16/19 05:30 Calcium 7.8 mg/dL (8.5-10.1) L 10/16/19 05:30 Total Bilirubin 0.3 mg/dL (0.2-1) 10/14/19 06:15 AST 150 U/L (15-37) H 10/14/19 06:15 ALT 225 U/L (13-61) H 10/14/19 06:15 Alkaline Phosphatase 29 U/L (45-117) L 10/14/19 06:15 Total Protein 6.1 g/dl (6.4-8.2) L 10/14/19 06:15 Albumin 2.7 g/dl (3.4-5.0) L 10/14/19 06:15 CARDIAC ENZYMES Creatine Kinase 4787 U/L (26-192) H 10/16/19 05:30 Troponin I 0.29 ng/ml (0.00-0.05) H 10/05/19 20:27 Current Medications Generic Name Dose Route Start Last Admin Trade Name Freq PRN Reason Stop Dose Admin Docusate Sodium 100 mg 10/13/19 07:24 Colace - PO BID PRN CONSTIPATION Folic Acid 1 mg 10/10/19 10:00 10/15/19 09:06 Folic Acid - PO 1 mg DAILY JESSI Administration Heparin Sodium (Porcine) 5,000 unit 10/09/19 14:00 10/16/19 05:50 Heparin - SQ 5,000 unit TID JESSI Administration Sodium Chloride 1,000 mls @ 200 mls/hr 10/13/19 16:24 10/15/19 22:37 Normal Saline - IV 200 mls/hr ASDIR JESSI Administration Methotrexate 15 mg 10/14/19 10:00 10/14/19 10:28 Mexate - PO 15 mg Q7D JESSI Administration Methylprednisolone Sodium Succinate 30 mg 10/09/19 22:00 10/15/19 21:36 Solu-Medrol - IVPUSH 30 mg BID JESSI Administration Ondansetron HCl 4 mg 10/09/19 10:28 10/15/19 19:42 Zofran Injection IVPUSH 4 mg Q6H PRN Administration NAUSEA AND/OR VOMITING Pantoprazole Sodium 40 mg 10/10/19 10:00 10/15/19 09:07 Protonix - PO 40 mg DAILY JESSI Administration Senna/Docusate Sodium 1 tablet 10/13/19 10:00 10/15/19 21:35 Pericolace - PO Not Given BID [facility] Home Medications Medication Instructions Recorded NK [No Known Home Medication] 10/05/19 EMG report: Abnormal study, there is an evidence of myopathy/myositis with spontaneous activity. Evidence of axonal motor injury to the bl common peroneal nerves maybe due to swelling and edema. CXR: breast implants , no acute pathology ASSESSMENT AND PLAN: Patient is a 24yof with no Significant PMHx who presented with severe LEs muscle weakness. #s/p Right thigh bx , revaluated by the vascular surgeon. #Swelling of both thighs due to IVF: 20mg of po lasix as needed. #Acute Rhabdomyolysis due to having myositis, rheumatology on the case, waiting for the bx result. continue IVF, cpk is trending down 4875-->4787 today # Possible myositis waiting for bx result, will check with the pathology department, cont steroids and MTX/folic # subclinical hypothyroidism:repeat TSH as out pt. # Transaminitis due to rhabdo ,trending down , monitor renal function and LFTs. # Microcytic anemia: Iron studies indicate no iron def. f/u with heme as out pt to evaluate # Hypertropenemia most likely due to rhabdo. DVt px: heparin repeat EMG/NC as out pt continue PT
[2019-10-16] MEDS: methylPREDNISolone NA SUCC 40 MG/1 ML VIAL IVPUSH SCH ×2 (09:13→22:14)
[2019-10-16] MEDS: PANTOPRAZOLE 40 MG TABLET PO SCH (09:17)
[2019-10-16] MEDS: SENNOSIDES/DOCUSATE COMBO (SENNA PLUS) TABLET (UD) PO SCH ×2 (09:17→22:12)
[2019-10-16] MEDS: FOLIC ACID 1 MG TABLET (FP) PO SCH (09:17)
[2019-10-16] MEDS: SODIUM CHLORIDE 1,000 ML IV SCH ×3 (09:19→19:39)
--- NOTE | 2019-10-16 11:37 | PN ---
Progress Note (short form) - Note Progress Note: Pt without any complaints. Seen with Dr. Norman Vital Signs Period Temp Pulse Resp BP Sys/Newell Pulse Ox Last 24 Hr 97.4 F-98.4 F 47-71 18-18 126-148/71-84 100 GEN: A&0x3, NAD Right thigh: inc c/d/. No drainage or erythema noted. Lateral aspect of incision skin(1/2cm) skin edges slightly not approximated. Dermabond on wound. A/P: 24 yo female s/p Right thigh muscle biopsy Wound healing well, Dr. Norman recommending bacitracin to the wound F/u in wound clinic as outpt for wound check No surgical pathology reported
--- NOTE | 2019-10-16 14:46 | PN ---
Progress Note, Physician History of Present Illness: Pt seen and examined at bedside. She is awake and alert. She denies shortness of breath. - Current Medication List Current Medications: Active Medications Bacitracin (Bacitracin -) 1 applic TP DAILY [facility] Docusate Sodium (Colace -) 100 mg PO BID PRN PRN Reason: CONSTIPATION Folic Acid (Folic Acid -) 1 mg PO DAILY [facility] Last Admin: 10/16/19 09:17 Dose: 1 mg Methotrexate (Mexate -) 15 mg PO Q7D [facility] Last Admin: 10/14/19 10:28 Dose: 15 mg Methylprednisolone Sodium Succinate (Solu-Medrol -) 30 mg IVPUSH BID [facility] Last Admin: 10/16/19 09:13 Dose: 30 mg Ondansetron HCl (Zofran Injection) 4 mg IVPUSH Q6H PRN PRN Reason: NAUSEA AND/OR VOMITING Last Admin: 10/15/19 19:42 Dose: 4 mg Pantoprazole Sodium (Protonix -) 40 mg PO DAILY [facility] Last Admin: 10/16/19 09:17 Dose: 40 mg Senna/Docusate Sodium (Pericolace -) 1 tablet PO BID [facility] Last Admin: 10/16/19 09:17 Dose: Not Given - Objective Vital Signs: Vital Signs Temperature 98.3 F 10/16/19 13:43 Pulse Rate 57 L 10/16/19 13:43 Respiratory Rate 16 10/16/19 13:43 Blood Pressure 141/79 10/16/19 13:43 O2 Sat by Pulse Oximetry (%) 100 10/16/19 09:00 Constitutional: Yes: Calm Eyes: Yes: Conjunctiva Clear HENT: Yes: Atraumatic Neck: Yes: Supple Cardiovascular: Yes: S1, S2 Respiratory: Yes: CTA Bilaterally Gastrointestinal: Yes: Soft Genitourinary: Yes: WNL Musculoskeletal: Yes: Muscle Weakness Edema: Yes Edema: LLE: Trace, RLE: Trace Neurological: Yes: Oriented Psychiatric: Yes: Oriented Labs: CBC, BMP 10/12/19 06:35 10/16/19 05:30 INR, PTT INR 1.08 (0.83-1.09) 10/09/19 06:20 Problem List - Problems (1) Rhabdomyolysis Code(s): M62.82 - RHABDOMYOLYSIS Assessment/Plan Current Medications Generic Name Dose Route Start Last Admin Trade Name Freq PRN Reason Stop Dose Admin Bacitracin 1 applic 10/17/19 10:00 Bacitracin - TP DAILY JESSI Docusate Sodium 100 mg 10/13/19 07:24 Colace - PO BID PRN CONSTIPATION Folic Acid 1 mg 10/10/19 10:00 10/16/19 09:17 Folic Acid - PO 1 mg DAILY JESSI Administration Methotrexate 15 mg 10/14/19 10:00 10/14/19 10:28 Mexate - PO 15 mg Q7D JESSI Administration Methylprednisolone Sodium Succinate 30 mg 10/09/19 22:00 10/16/19 09:13 Solu-Medrol - IVPUSH 30 mg BID [facility] Administration Ondansetron HCl 4 mg 10/09/19 10:28 10/15/19 19:42 Zofran Injection IVPUSH 4 mg Q6H PRN Administration NAUSEA AND/OR VOMITING Pantoprazole Sodium 40 mg 10/10/19 10:00 10/16/19 09:17 Protonix - PO 40 mg DAILY [facility] Administration Senna/Docusate Sodium 1 tablet 10/13/19 10:00 10/16/19 09:17 Pericolace - PO Not Given BID [facility] Impression 1. rhabdo 2. hematuria 3. proteinuria 4. transaminitis 5. hypokalemia 6. r/o polymyositis Plan - follow muscle biopsy - monitor cpk - monitor lytes - lasix if overloaded - rheum follow up
[2019-10-16] MEDS: ACETAMINOPHEN 325 MG TABLET (FP) PO PRN ×2 (15:54→22:15)
[2019-10-16] MEDS: ONDANSETRON 4 MG/2 ML VIAL IVPUSH PRN (15:55)
[2019-10-16] MEDS: ENOXAPARIN NA (PORCINE) 40 MG/0.4 ML DISP.SYRIN SQ SCH (16:00)
--- NOTE | 2019-10-16 16:38 | PN ---
Physical Exam: SUBJECTIVE: Patient seen and examined WILMA Denies GARCIA, thinks legs feel swollen OBJECTIVE: Vital Signs Period Temp Pulse Resp BP Sys/Newell Pulse Ox Last 24 Hr 97.4 F-98.4 F 47-71 16-18 126-147/71-84 100-100 GENERAL: The patient is awake, alert, and fully oriented, in no acute distress. HEAD: NC/AT EYES: extraocular movements intact, sclera anicteric, conjunctiva clear. No ptosis. ENT: Ears normal, nares patent, oropharynx clear without exudates, moist mucous membranes. No oral ulcers NECK: Trachea midline, full range of motion, supple. Neg cervical LAD LUNGS: CTAB, no accessory muscle use. HEART: Regular rate and rhythm, S1, S2 without murmur, rub or gallop. ABDOMEN: Soft, nontender, nondistended, no guarding, no rebound. EXTREMITIES: 2+ pulses, warm, well-perfused, no edema. Right anterior mid- thigh with surgical dressing w/o strikethrough NEUROLOGICAL: Cranial nerves II through XII grossly intact. Normal speech. Decreased strength 4/5 flexion/extension of RUE shoulder, and RUE elbow flexion/ extension. Decreased flexion/extension of LLE hip. Nonpitting edema of BLE PSYCH: normal mood SKIN: Warm, dry, normal turgor, no rashes or lesions noted Laboratory Results - last 24 hr 10/16/19 05:30 Sodium 138 Potassium 3.8 Chloride 105 Carbon Dioxide 26 Anion Gap 7 L BUN 9.0 Creatinine 0.4 L Est GFR (CKD-EPI)AfAm 167.78 Est GFR (CKD-EPI)NonAf 144.76 Random Glucose 110 H Calcium 7.8 L Creatine Kinase 4787 H Creatine Kinase Index 2.7 CK-MB (CK-2) 129.7 H Active Medications Generic Name Dose Route Start Last Admin Trade Name Freq PRN Reason Stop Dose Admin Acetaminophen 650 mg 10/16/19 15:47 10/16/19 15:54 Tylenol - PO 650 mg Q6H PRN Administration HEADACHE Bacitracin 1 applic 10/17/19 10:00 Bacitracin - TP DAILY JESSI Docusate Sodium 100 mg 10/13/19 07:24 Colace - PO BID PRN CONSTIPATION Enoxaparin Sodium 40 mg 10/16/19 16:00 10/16/19 16:00 Lovenox - SQ Not Given DAILY JESSI Folic Acid 1 mg 10/10/19 10:00 10/16/19 09:17 Folic Acid - PO 1 mg DAILY JESSI Administration Sodium Chloride 1,000 mls @ 200 mls/hr 10/16/19 16:30 Normal Saline - IV ASDIR JESSI Methotrexate 15 mg 10/14/19 10:00 10/14/19 10:28 Mexate - PO 15 mg Q7D JESSI Administration Methylprednisolone Sodium Succinate 30 mg 10/09/19 22:00 10/16/19 09:13 Solu-Medrol - IVPUSH 30 mg BID JESSI Administration Pantoprazole Sodium 40 mg 10/10/19 10:00 10/16/19 09:17 Protonix - PO 40 mg DAILY JESSI Administration Senna/Docusate Sodium 1 tablet 10/13/19 10:00 10/16/19 09:17 Pericolace - PO Not Given BID JESSI ASSESSMENT/PLAN: 24 y.o. F w/o PMHx. who presents with progressive muscle weakness over the last month. Pt. states that she was taking care of errands in the house when she collapsed, because of lower extremity weakness. Denied extensive physical activity, drug usage. 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 Admitted for rhabdomylosis. Rheum onboard, rec solumedrol, methotrexate, folic acid. EMG showed evidence of myopathy, axonal motor injury of b/l ulnar and b/l peroneal nerves. Possibly dt compression or neuropathy. Responding to Gunser's hypnosis therapy. Dr Craft recommended PT(ROM stretching and isometric strenghtening). S/p muscle bx([place], 10/09/19). CTH and CTcspine neg after mechanical fall w/o LOC. 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 Liao --EMG --Dr. Norman --muscle biopsy - PM&R([facility]) consult: --EMG(10/08/19): electrophysiological evidence of myopathy/myositis w/ spontaneous activity - Dr Hidalgo --ROM stretching and isometrics strengthening #Mechanical Fall --2/2 to proximal muscle weakness > CTH, CTcspine(10/09/19): neg #Tropinemia --likley 2/2 to rhabdomyolysis --resolved > Troponin 0.29, 0.3, 0.28, 0.29 > EKG: TWI in septal leads and T-wave flattening in V3, with associated dyspnea on exertion after 1 block > Echo(10/06/19): LVEF 65-70% -Cardiology consult to Dr. Howard: --electrolyte repletion --[facility] inflamm myopathy/myositis --fu CK, TNI --rec psych consult for depression #Transaminitis --likely 2/2 to rhabdomyolysis > US Abd: mild diffuse hepatic steatosis -will c/w trend #Microcytic anemia --no known FH, no active menstruation, no signs of GIB > Hgb 9.9, MCV 78.5 > iron studies: neg for iron deficiency --outpt anemia w/u(thalessemias, etc) #Depression > Psych([facility]) consult: --likely long standing dysthymia --rec outpt career counseling --will be followed while inpt #pain --post-op ---resolved - oxycodone 5mg - acetaminophen #FEN -NS @ 200, will encourage PO intake as well --lasix PRN -monitor electrolytes and replete as needed -Regular Diet #DVT Ppx. -enoxaparin Visit type - Emergency Visit Emergency Visit: No - New Patient This patient is new to me today: No - Critical Care Critical Care patient: No ATTENDING PHYSICIAN STATEMENT I saw and evaluated the patient. I reviewed the resident's note and discussed the case with the resident. I agree with the resident's findings and plan as documented. SUBJECTIVE: OBJECTIVE: ASSESSMENT AND PLAN:
--- NOTE | 2019-10-17 05:08 | PN ---
Progress Note, Physician Chief Complaint: Pt A&Ox3; able to ambulate slowly; improved strength and ROM; still SOB on mild exertion, and has bilateral leg heaviness/swelling. Eager to go home. History of Present Illness: Ms. Ohara is a 24 yr old black woman with PMhx of breast reduction and abdominoplasty (in [place]; 2014), BL lens placement and removal presenting following a fall. She states she was cleaning and getting ready to take out trash when her legs gave out and she fell down forward on to her knees and her face brushed against the ground. She was not able to get herself up off the floor due to feeling weak. She was on the ground for 25min before EMS came to help. She reports worsening weakness since . She reports proximal muscle distribution of the weakness in her hip flexors and deltoids. She reports weakness is more prominent when walking up the stairs, getting up out of bed, reaching above head, getting off toilet. She states her weakness is worse near the end of walking up a flight of stairs. She also reports muscle soreness in the proximal muscle distribution. She reports SOB and increased WOB when walking long distances. She denies recent travel, camping, hiking, lifting , exercise, fever, chills, rash, chest pain, GARCIA, LH, dizziness, dysuria. Reportedly was crying in ER, frustrated over not knowng what was going on with her health. Hx weakness since July,. 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 Lives in her own apt in [facility]; prepares her own food; eats well. No cigarettes or alcohol. PMHx: as noted above ROS: as noted SHx: Denies tobacco use; no alcohol use; no rec drugs Allergies: NKDA Denies family hx of CAD or CVA. - Current Medication List Current Medications: Active Medications Acetaminophen (Tylenol -) 650 mg PO Q6H PRN PRN Reason: HEADACHE Last Admin: 10/16/19 22:15 Dose: 650 mg Bacitracin (Bacitracin -) 1 applic TP DAILY REPLACED BY [facility] Docusate Sodium (Colace -) 100 mg PO BID PRN PRN Reason: CONSTIPATION Enoxaparin Sodium (Lovenox -) 40 mg SQ DAILY JESSI Last Admin: 10/16/19 16:00 Dose: Not Given Folic Acid (Folic Acid -) 1 mg PO DAILY REPLACED BY [facility] Last Admin: 10/16/19 09:17 Dose: 1 mg Sodium Chloride (Normal Saline -) 1,000 mls @ 200 mls/hr IV ASDIR REPLACED BY [facility] Last Admin: 10/16/19 19:39 Dose: 200 mls/hr Methotrexate (Mexate -) 15 mg PO Q7D REPLACED BY [facility] Last Admin: 10/14/19 10:28 Dose: 15 mg Methylprednisolone Sodium Succinate (Solu-Medrol -) 30 mg IVPUSH BID REPLACED BY [facility] Last Admin: 10/16/19 22:14 Dose: 30 mg Pantoprazole Sodium (Protonix -) 40 mg PO DAILY REPLACED BY [facility] Last Admin: 10/16/19 09:17 Dose: 40 mg Senna/Docusate Sodium (Pericolace -) 1 tablet PO BID REPLACED BY [facility] Last Admin: 10/16/19 22:12 Dose: Not Given - Objective Vital Signs: Vital Signs Temperature 98.0 F 10/16/19 18:00 Pulse Rate 60 10/16/19 18:00 Respiratory Rate 18 10/16/19 21:00 Blood Pressure 135/70 10/16/19 18:00 O2 Sat by Pulse Oximetry (%) 100 10/16/19 21:00 Constitutional: Yes: Calm, Obese Eyes: Yes: WNL HENT: Yes: WNL Neck: Yes: WNL Cardiovascular: Yes: Regular Rate and Rhythm, S1, S2 Respiratory: Yes: WNL Gastrointestinal: Yes: WNL ...Rectal Exam: Yes: Deferred Genitourinary: Yes: Polyuria Breast(s): Yes: WNL Musculoskeletal: Yes: Joint Stiffness, Muscle Weakness Extremities: Yes: Cool Edema: Yes Edema: LLE: 1+, RLE: 1+ Peripheral Pulses WNL: Yes Integumentary: Yes: WNL Neurological: Yes: Alert, Oriented, Weakness Psychiatric: Yes: Alert, Oriented Labs: CBC, BMP 10/12/19 06:35 10/16/19 05:30 INR, PTT INR 1.08 (0.83-1.09) 10/09/19 06:20 Abnormal Lab Results 10/16/19 05:30 Anion Gap 7 L Creatinine 0.4 L Random Glucose 110 H Calcium 7.8 L Creatine Kinase 4787 H CK-MB (CK-2) 129.7 H Problem List - Problems (1) Hypokalemia Assessment/Plan: Normal presently; keep K 4.0-4.5 Replace Mg, and keep 2.0-2.4 Code(s): E87.6 - HYPOKALEMIA (2) Anxiety about health Code(s): F41.8 - OTHER SPECIFIED ANXIETY DISORDERS (3) Elevated troponin Code(s): R79.89 - OTHER SPECIFIED ABNORMAL FINDINGS OF BLOOD CHEMISTRY (4) Proximal muscle weakness Assessment/Plan: EMG: myopathy/myositis. Now on methotrexate and steroids. Stop IV fluids. F/u BUN/Cr, electrolytes, Is and Os (pt may not need diuretics); daily weight. Code(s): M62.81 - MUSCLE WEAKNESS (GENERALIZED) (5) Rhabdomyolysis Assessment/Plan: CK, LFTs continue to decrease. On methotrexate and steroids. Renal function normal. Signs of volume overload (bilateral LE edema; weight gain; IBARRA). Stop IVF, and f/u CK, LFts, BUN/Cr, Is and Os. Code(s): M62.82 - RHABDOMYOLYSIS (6) Transaminitis Code(s): R74.0 - NONSPEC ELEV OF LEVELS OF TRANSAMNS & LACTIC ACID DEHYDRGNSE (7) Anxiety and depression Code(s): F41.9 - ANXIETY DISORDER, UNSPECIFIED; F32.9 - MAJOR DEPRESSIVE DISORDER, SINGLE EPISODE, UNSPECIFIED
[2019-10-17 06:54] LABS: HEMATOCRIT 30.3 % (32.4-45.2); HEMOGLOBIN 9.7 GM/dL (10.7-15.3); MCH 25.4 pg (25.7-33.7); MCHC 32.1 g/dl (32.0-36.0); MEAN CELL VOLUME 79.2 fl (80-96); MEAN PLT VOLUME 8.7 fl (7.5-11.1); PLATELET COUNT 302 K/MM3 (134-434); RBC 3.83 M/mm3 (3.60-5.2); RDW 17.5 % (11.6-15.6); WHITE BLOOD COUNT 16.8 K/mm3 (4.0-10.0)
[2019-10-17 08:21] LABS: ALBUMIN 2.6 g/dl (3.4-5.0); BILIRUBIN,TOTAL 0.4 mg/dL (0.2-1); BLOOD UREA NITROGEN 11.7 mg/dL (7-18); CALCIUM 8.3 mg/dL (8.5-10.1); CREATININE 0.4 mg/dL (0.55-1.3); MAGNESIUM 1.7 mg/dL (1.8-2.4); PHOSPHOROUS 4.2 mg/dL (2.5-4.9); POTASSIUM 3.8 mmol/L (3.5-5.1); TOT PROT 5.8 g/dl (6.4-8.2)
--- NOTE | 2019-10-17 09:38 | PN ---
Teaching Attending Note Name of Resident: Maximino Meraz ATTENDING PHYSICIAN STATEMENT I saw and evaluated the patient. I reviewed the resident's note and discussed the case with the resident. I agree with the resident's findings and plan as documented. SUBJECTIVE: Patient is doing better with no acute distress, able to ambulate. OBJECTIVE: Vital Signs Temperature 97.5 F L 10/17/19 09:21 Pulse Rate 62 10/17/19 09:21 Respiratory Rate 18 10/17/19 09:21 Blood Pressure 145/81 10/17/19 09:21 O2 Sat by Pulse Oximetry (%) 100 10/16/19 21:00 GENERAL: The patient is awake, alert, and fully oriented, in no acute distress. HEAD: Normal with no signs of trauma. EYES: PERRL, extraocular movements intact, sclera anicteric, conjunctiva clear. ENT: Ears normal, oropharynx clear without exudates, moist mucous membranes. NECK: Trachea midline, full range of motion, supple. LUNGS: Breath sounds equal, clear to auscultation bilaterally, no wheezes, no crackles, no accessory muscle use. HEART: Regular rate and rhythm, S1, S2 without murmur, rub or gallop. ABDOMEN: Soft, NT,ND, normoactive bowel sounds, no guarding, no rebound, no hepatosplenomegaly, no masses. EXTREMITIES: 2+ pulses, warm, well-perfused, thighs are mildly edematous, right thigh bx. NEUROLOGICAL: Cranial nerves II through XII grossly intact. Normal speech, gait not observed. PSYCH: Normal mood, normal affect. SKIN: Warm, dry, normal turgor, no rashes or lesions noted CBCD WBC 16.8 K/mm3 (4.0-10.0) H 10/17/19 06:10 RBC 3.83 M/mm3 (3.60-5.2) 10/17/19 06:10 Hgb 9.7 GM/dL (10.7-15.3) L 10/17/19 06:10 Hct 30.3 % (32.4-45.2) L 10/17/19 06:10 MCV 79.2 fl (80-96) L 10/17/19 06:10 MCHC 32.1 g/dl (32.0-36.0) 10/17/19 06:10 RDW 17.5 % (11.6-15.6) H 10/17/19 06:10 Plt Count 302 K/MM3 (134-434) 10/17/19 06:10 MPV 8.7 fl (7.5-11.1) 10/17/19 06:10 CMP Sodium 140 mmol/L (136-145) 10/17/19 06:10 Potassium 3.8 mmol/L (3.5-5.1) 10/17/19 06:10 Chloride 106 mmol/L (98-107) 10/17/19 06:10 Carbon Dioxide 26 mmol/L (21-32) 10/17/19 06:10 Anion Gap 8 MMOL/L (8-16) 10/17/19 06:10 BUN 11.7 mg/dL (7-18) 10/17/19 06:10 Creatinine 0.4 mg/dL (0.55-1.3) L 10/17/19 06:10 Random Glucose 108 mg/dL (74-106) H 10/17/19 06:10 Calcium 8.3 mg/dL (8.5-10.1) L 10/17/19 06:10 Total Bilirubin 0.4 mg/dL (0.2-1) 10/17/19 06:10 AST 102 U/L (15-37) H 10/17/19 06:10 ALT 186 U/L (13-61) H 10/17/19 06:10 Alkaline Phosphatase 29 U/L (45-117) L 10/17/19 06:10 Total Protein 5.8 g/dl (6.4-8.2) L 10/17/19 06:10 Albumin 2.6 g/dl (3.4-5.0) L 10/17/19 06:10 CARDIAC ENZYMES Creatine Kinase 4351 U/L (26-192) H 10/17/19 06:10 Troponin I 0.29 ng/ml (0.00-0.05) H 10/05/19 20:27 Current Medications Generic Name Dose Route Start Last Admin Trade Name Freq PRN Reason Stop Dose Admin Acetaminophen 650 mg 10/16/19 15:47 10/16/19 22:15 Tylenol - PO 650 mg Q6H PRN Administration HEADACHE Bacitracin 1 applic 10/17/19 10:00 Bacitracin - TP DAILY JESSI Docusate Sodium 100 mg 10/13/19 07:24 Colace - PO BID PRN CONSTIPATION Enoxaparin Sodium 40 mg 10/16/19 16:00 10/16/19 16:00 Lovenox - SQ Not Given DAILY [facility] Folic Acid 1 mg 10/10/19 10:00 10/16/19 09:17 Folic Acid - PO 1 mg DAILY JESSI Administration Methotrexate 15 mg 10/14/19 10:00 10/14/19 10:28 Mexate - PO 15 mg Q7D [facility] Administration Methylprednisolone Sodium Succinate 30 mg 10/09/19 22:00 10/16/19 22:14 Solu-Medrol - IVPUSH 30 mg BID JESSI Administration Pantoprazole Sodium 40 mg 10/10/19 10:00 10/16/19 09:17 Protonix - PO 40 mg DAILY [facility] Administration Senna/Docusate Sodium 1 tablet 10/13/19 10:00 10/16/19 22:12 Pericolace - PO Not Given BID [facility] Home Medications Medication Instructions Recorded NK [No Known Home Medication] 10/05/19 Laboratory Tests 10/05/19 10/05/19 10/05/19 03:50 03:50 10:50 Hemoglobin A1c % Creatine Kinase > 72616 H CK-MB (CK-2) 210.5 H Troponin I C-Reactive Protein Triglycerides Cholesterol Total LDL Cholesterol HDL Cholesterol Serum Folate TSH 6.07 H Free T4 1.13 Thyroxine (T4) 10.8 Free T3 4.0 Resin T3 Uptake 35.0 10/05/19 10/05/19 10/05/19 10:50 10:50 10:50 Hemoglobin A1c % 5.0 Creatine Kinase > 84166 H CK-MB (CK-2) 210.5 H Troponin I C-Reactive Protein 1.9 H Triglycerides 355 H Cholesterol 176 Total LDL Cholesterol 95 HDL Cholesterol 30 L Serum Folate 19 H TSH Free T4 Thyroxine (T4) Free T3 Resin T3 Uptake 10/05/19 10/05/19 10/08/19 16:00 20:27 07:15 Hemoglobin A1c % Creatine Kinase > 40944 H > 63387 H CK-MB (CK-2) 247.6 H Troponin I 0.28 H 0.29 H C-Reactive Protein Triglycerides Cholesterol Total LDL Cholesterol HDL Cholesterol Serum Folate TSH Free T4 Thyroxine (T4) Free T3 Resin T3 Uptake 0110/10/19 10/11/19 06:20 06:00 06:20 Hemoglobin A1c % Creatine Kinase 00131 H 8026 H 9466 H CK-MB (CK-2) Troponin I C-Reactive Protein Triglycerides Cholesterol Total LDL Cholesterol HDL Cholesterol Serum Folate TSH Free T4 Thyroxine (T4) Free T3 Resin T3 Uptake 10/12/19 10/13/19 10/14/19 06:35 09:17 06:15 Hemoglobin A1c % Creatine Kinase 6645 H 6887 H 6226 H CK-MB (CK-2) Troponin I C-Reactive Protein Triglycerides Cholesterol Total LDL Cholesterol HDL Cholesterol Serum Folate TSH Free T4 Thyroxine (T4) Free T3 Resin T3 Uptake 10/15/19 10/16/19 10/17/19 06:45 05:30 06:10 Hemoglobin A1c % Creatine Kinase 4988 H 4787 H 4351 H CK-MB (CK-2) Troponin I C-Reactive Protein Triglycerides Cholesterol Total LDL Cholesterol HDL Cholesterol Serum Folate TSH Free T4 Thyroxine (T4) Free T3 Resin T3 Uptake EMG report: Abnormal study, there is an evidence of myopathy/myositis with spontaneous activity. Evidence of axonal motor injury to the bl common peroneal nerves maybe due to swelling and edema. CXR: breast implants , no acute pathology ASSESSMENT AND PLAN: Patient is a 24yof with no Significant PMHx who presented with severe LEs muscle weakness. #s/p Right thigh bx by dr Norman #Swelling of both thighs due to IVF: 20mg of po lasix prn. #Acute Rhabdomyolysis due to having myositis, rheumatology on the case, waiting for the bx result. continue IVF, cpk is trending down 4875--> 4351 today, patient is being discharged home, encouraged to drink 2-3 liter of water per day. discussed with dr de los santos , patient will follow up with him within a week period. # Possible myositis waiting for bx result, will check with the pathology department.cont steroids and MTX/folic # subclinical hypothyroidism:repeat TSH as out pt. # Transaminitis due to rhabdo ,monitor renal function and LFTs. # Microcytic anemia: Iron studies indicate no iron def. f/u with heme as out pt to evaluate # Hypertropenemia DVt px: heparin might need repeat EMG/NC as an out pt, continue PT Rheumatology appointment was made for her in October by the team since insurance was an issue, patient will follow up with dr colby within a week period, and follow up with the clinic in a week with dr cabezas.
[2019-10-17] MEDS ORDERED: FUROSEMIDE 20 MG TABLET (FP) PO ONE (09:58)
[2019-10-17] MEDS ORDERED: BACITRACIN 15 GM TUBE TOPICAL OINTMENT TP SCH (10:00)
[2019-10-17] MEDS: PANTOPRAZOLE 40 MG TABLET PO SCH (10:03)
[2019-10-17] MEDS: FOLIC ACID 1 MG TABLET (FP) PO SCH (10:03)
[2019-10-17] MEDS: ENOXAPARIN NA (PORCINE) 40 MG/0.4 ML DISP.SYRIN SQ SCH ×2 (10:04→12:56)
[2019-10-17] MEDS: SENNOSIDES/DOCUSATE COMBO (SENNA PLUS) TABLET (UD) PO SCH (10:04)
[2019-10-17] MEDS: methylPREDNISolone NA SUCC 40 MG/1 ML VIAL IVPUSH SCH (10:09)
--- NOTE | 2019-10-17 15:32 | PN ---
Progress Note, Physician History of Present Illness: Pt seen and examined at bedside. She feels that her strength is slowly improving but not back to baseline. - Current Medication List Current Medications: Active Medications Acetaminophen (Tylenol -) 650 mg PO Q6H PRN PRN Reason: HEADACHE Last Admin: 10/16/19 22:15 Dose: 650 mg Bacitracin (Bacitracin -) 1 applic TP DAILY [facility] Last Admin: 10/17/19 12:25 Dose: 1 applic Docusate Sodium (Colace -) 100 mg PO BID PRN PRN Reason: CONSTIPATION Enoxaparin Sodium (Lovenox -) 40 mg SQ DAILY [facility] Last Admin: 10/17/19 12:56 Dose: Not Given Folic Acid (Folic Acid -) 1 mg PO DAILY [facility] Last Admin: 10/17/19 10:03 Dose: 1 mg Magnesium Oxide (Mag-Ox -) 800 mg PO ONCE ONE Stop: 10/17/19 15:31 Methotrexate (Mexate -) 15 mg PO Q7D [facility] Last Admin: 10/14/19 10:28 Dose: 15 mg Methylprednisolone Sodium Succinate (Solu-Medrol -) 30 mg IVPUSH BID [facility] Last Admin: 10/17/19 10:09 Dose: 30 mg Pantoprazole Sodium (Protonix -) 40 mg PO DAILY [facility] Last Admin: 10/17/19 10:03 Dose: 40 mg Senna/Docusate Sodium (Pericolace -) 1 tablet PO BID [facility] Last Admin: 10/17/19 10:04 Dose: 1 tablet - Objective Vital Signs: Vital Signs Temperature 98.3 F 10/17/19 13:48 Pulse Rate 56 L 10/17/19 13:48 Respiratory Rate 18 10/17/19 13:48 Blood Pressure 146/87 10/17/19 13:48 O2 Sat by Pulse Oximetry (%) 100 10/16/19 21:00 Constitutional: Yes: Calm Eyes: Yes: Conjunctiva Clear HENT: Yes: Atraumatic Neck: Yes: Supple Cardiovascular: Yes: S1, S2 Respiratory: Yes: CTA Bilaterally Gastrointestinal: Yes: Soft Genitourinary: Yes: WNL Musculoskeletal: Yes: WNL Integumentary: Yes: Tattoos Wound/Incision: Yes: Open to air Neurological: Yes: Oriented Labs: CBC, BMP 10/17/19 06:10 10/17/19 06:10 INR, PTT INR 1.08 (0.83-1.09) 10/09/19 06:20 Problem List - Problems (1) Rhabdomyolysis Code(s): M62.82 - RHABDOMYOLYSIS Assessment/Plan Current Medications Generic Name Dose Route Start Last Admin Trade Name Frecarmen PRN Reason Stop Dose Admin Acetaminophen 650 mg 10/16/19 15:47 10/16/19 22:15 Tylenol - PO 650 mg Q6H PRN Administration HEADACHE Bacitracin 1 applic 10/17/19 10:00 10/17/19 12:25 Bacitracin - TP 1 applic DAILY JESSI Administration Docusate Sodium 100 mg 10/13/19 07:24 Colace - PO BID PRN CONSTIPATION Enoxaparin Sodium 40 mg 10/16/19 16:00 10/17/19 12:56 Lovenox - SQ Not Given DAILY JESSI Folic Acid 1 mg 10/10/19 10:00 10/17/19 10:03 Folic Acid - PO 1 mg DAILY JESSI Administration Magnesium Oxide 800 mg 10/17/19 15:30 Mag-Ox - PO 10/17/19 15:31 ONCE ONE Methotrexate 15 mg 10/14/19 10:00 10/14/19 10:28 Mexate - PO 15 mg Q7D JESSI Administration Methylprednisolone Sodium Succinate 30 mg 10/09/19 22:00 10/17/19 10:09 Solu-Medrol - IVPUSH 30 mg BID JESSI Administration Pantoprazole Sodium 40 mg 10/10/19 10:00 10/17/19 10:03 Protonix - PO 40 mg DAILY JESSI Administration Senna/Docusate Sodium 1 tablet 10/13/19 10:00 10/17/19 10:04 Pericolace - PO 1 tablet BID JESSI Administration Impression 1. rhabdo 2. hematuria 3. proteinuria 4. transaminitis 5. hypokalemia 6. r/o polymyositis Plan - monitor lytes - lasix as needed - follow biopsy - rheum eval - will follow prn - last ua improved
[2019-10-17] MEDS ORDERED: DOCUSATE SODIUM 100 MG CAPSULE (FP) PO PRN (16:11)
[2019-10-17] MEDS: MAGNESIUM OXIDE 400 MG TABLET (FP) PO ONE (17:28)
--- NOTE | 2019-10-17 17:42 | DS ---
Physical Exam: SUBJECTIVE: Patient seen and examined OBJECTIVE: Vital Signs Period Temp Pulse Resp BP Sys/Newell Pulse Ox Last 24 Hr 97.5 F-98.3 F 56-62 18-18 135-146/70-87 100 PHYSICAL EXAM GENERAL: The patient is awake, alert, and fully oriented, in no acute distress. HEAD: NC/AT EYES: extraocular movements intact, sclera anicteric, conjunctiva clear. No ptosis. ENT: Ears normal, nares patent, oropharynx clear without exudates, moist mucous membranes. No oral ulcers NECK: Trachea midline, full range of motion, supple. Neg cervical LAD LUNGS: CTAB, no accessory muscle use. HEART: Regular rate and rhythm, S1, S2 without murmur, rub or gallop. ABDOMEN: Soft, nontender, nondistended, no guarding, no rebound. EXTREMITIES: 2+ pulses, warm, well-perfused, no edema. Right anterior mid- thigh with surgical dressing w/o strikethrough NEUROLOGICAL: Cranial nerves II through XII grossly intact. Normal speech. Decreased strength 4/5 flexion/extension of RUE shoulder, and RUE elbow flexion/ extension. Decreased flexion/extension of LLE hip. Nonpitting edema of BLE PSYCH: normal mood SKIN: Warm, dry, normal turgor, no rashes or lesions noted LABS Laboratory Results - last 24 hr 10/17/19 10/17/19 06:10 06:10 WBC 16.8 H RBC 3.83 Hgb 9.7 L Hct 30.3 L MCV 79.2 L MCH 25.4 L MCHC 32.1 RDW 17.5 H Plt Count 302 MPV 8.7 Sodium 140 Potassium 3.8 Chloride 106 Carbon Dioxide 26 Anion Gap 8 BUN 11.7 Creatinine 0.4 L Est GFR (CKD-EPI)AfAm 167.78 Est GFR (CKD-EPI)NonAf 144.76 Random Glucose 108 H Calcium 8.3 L Phosphorus 4.2 Magnesium 1.7 L Total Bilirubin 0.4 AST 102 H ALT 186 H Alkaline Phosphatase 29 L Creatine Kinase 4351 H Creatine Kinase Index 2.4 CK-MB (CK-2) 105.8 H Total Protein 5.8 L Albumin 2.6 L HOSPITAL COURSE: Date of Admission:10/05/19 Date of Discharge: 10/17/19 24 y.o. F w/o PMHx. who presents with progressive muscle weakness over the last month. Pt. states that she was taking care of errands in the house when she collapsed, because of lower extremity weakness. Denied extensive physical activity, drug usage. 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 Admitted for rhabdomylosis. Rheum onboard, rec solumedrol, methotrexate, folic acid. EMG showed evidence of myopathy, axonal motor injury of b/l ulnar and b/l peroneal nerves. Possibly dt compression or neuropathy. Responding to Gunser's hypnosis therapy. Dr Craft recommended PT(ROM stretching and isometric strenghtening). S/p muscle bx([place], 10/09/19). Had minor wound opening that prompted bacitracin. CTH and CTcspine neg after mechanical fall w/o LOC. CK downtrended to 4k. Repeat UA, no longer positive for protein or blood. Rheum fu appt made as outpatient that takes [employer] Managed. Pt stable for discharge home. Minutes to complete discharge: 31 Discharge Summary Problems reviewed: Yes Reason For Visit: TRANSAMINASEMIA, PROXISMAL MUSCLE WEAKNESS Current Active Problems Anxiety about health (Acute) Anxiety and depression (Acute) Dysthymia (Acute) Elevated troponin (Acute) Hypokalemia (Acute) Polymyositis (Acute) Proximal muscle weakness (Acute) Rhabdomyolysis (Acute) Stress and adjustment reaction (Acute) Transaminitis (Acute) Transaminitis (Acute) Condition: Stable - Instructions Diet, Activity, Other Instructions: You were admitted to hospital for evaluation of weakness. Your blood work showed elevated levels of CPK protein. You were treated with IV fluids, and had a muscle biopsy performed. You were evaluated by law clerk, tissue coordinator, therapist, and a surgeon. You were started on new medications. Your strength improved. MEDICATIONS: - Methotrexate[MEXATE] 15mg, once a week - Folic Acid 1mg, once daily - Prednisone[DELTASONE] 30mg, twice a day with food - Pantoprazole[Protonix] 40mg, once daily - Bacitracin, apply a light application to your thigh wound, once daily for 1 week PHYSICIAN FOLLOW-UP: - You will follow up with your primary care physician within one week. To discuss lab work, and get repeat lab work (eg. TSH). A referral to [facility] has been provided (Please come Sunday 11AM October) - Follow up with Extension Worker (Dr Whalen, ) and bring you biopsy results to discuss. To obtain a copy of your biopsy results please contact [facility]'s Medical Records department when the biopsy results are ready. - Follow up with Brush Maker Machine(Dr. Bernal) within one week. - Follow up with Surgeon (Dr Norman) within one week Please seek immediate medical evaluation if you experience: - severe, worsening weakness - inability to walk or get out of bed - dark-discolored urine Referrals: Sorin Whalen [Other] (Extension Worker. 11/10/19, @1pm) [facility] [place] [Provider Group] (10/28/19, 9:30am) Sid Perry MD [Primary Care Provider] - Javon Norman DO [Staff Physician] - Jodie Bernal MD [Staff Physician] - Disposition: HOME - Home Medications Comprehensive Discharge Medication List: Ambulatory Orders Bacitracin - [Bacitracin Topical Ointment -] 1 applic TP DAILY #1 tube 10/17/19 Folic Acid - 1 mg PO DAILY #30 tablet 10/17/19 Methotrexate [Mexate -] 15 mg PO Q7D #12 tablet 10/17/19 Pantoprazole Sodium [Protonix -] 40 mg PO DAILY #30 tablet.ec 10/17/19 Walker [Ultra-Light Rollator] 1 each ASDIR #1 each 10/17/19 predniSONE [Deltasone -] 30 mg PO BID #84 tab 10/17/19 This patient is new to me today: No Emergency Visit: No Critical Care patient: No - Discharge Referral Referred to [facility] No ATTENDING PHYSICIAN STATEMENT I saw and evaluated the patient. I reviewed the resident's note and discussed the case with the resident. I agree with the resident's findings and plan as documented. SUBJECTIVE: OBJECTIVE: ASSESSMENT AND PLAN:
[2019-10-17 18:33] VITALS: BP 146/75; PULSE 61; TEMP 98
[2019-10-17] MEDS ORDERED: methylPREDNISolone NA SUCC 40 MG/1 ML VIAL IVPUSH SCH (22:00)
[2019-10-17] MEDS ORDERED: SENNOSIDES/DOCUSATE COMBO (SENNA PLUS) TABLET (UD) PO SCH (22:00)
[2019-10-18] MEDS ORDERED: PANTOPRAZOLE 40 MG TABLET PO SCH (10:00)
[2019-10-18] MEDS ORDERED: FOLIC ACID 1 MG TABLET (FP) PO SCH (10:00)
--- NOTE | 2019-10-21 16:14 | PATH ---
Surgical Pathology Report Patient Name: RAFAELA RAMÍREZ Med. Rec. #: [id number] /Age/Gender: 1995 (Age: 24) / F Account: [id number] Location: 4 PEDS/ADOL Taken: 10/09/2019 Received: 10/09/2019 Reported: 10/21/2019 Physicians: Javon Norman Specimen(s) Received MUSCLE BIOPSY RIGHT THIGH Clinical History POLYMYOSITIS R/O. TRANSAMINASEMIA, PROXIMAL MUSCLE WEAKNESS. Final Diagnosis MUSCLE, THIGH, RIGHT, BIOPSY: NECROTIZING MYOPATHY, SEVERE, EARLY CHRONIC, WITH MULTIFOCAL INFLAMMATION. Comment: This biopsy reveals features of a necrotizing myopathy with multifocal chronic inflammation. The clinical information is to rule in/out various etiology including infectious/post-infectious, myotoxic/iatrogenic, autoimmune/paraneoplastic, traumatic, nutritional/metabolic, and inherited myopathy with severe inflammatory component. When clinically, immune-mediated disease are then suggested, morphological differential diagnosis might include immune-mediated necrotizing myopathy, and necrotizing phase of other inflammatory myopathies such as dermatomyositis and related conditions, anti-synthetase syndrome, overlap myositis, and polymyositis. This case was sent for consultation and work-up to Dr. Kori Mendez from [place], [place], the diagnosis reflects her opinion. See [place] report for additional details ([id number]). Electronically Signed Kanwal Corona M.D. Gross Description The specimen is received in formalin in a container labeled "right thigh muscle biopsy" It consists of one 1.8 x1x 0.6 cm piece of brown, rubbery muscle. Entirely submitted in a cassette labeled "AM". A similar piece of tissue, received unfixed, is frozen immediately in isopentane-liquid nitrogen. A third piece of similar tissue is received in glutaraldehyde fixative.
--- NOTE | 2019-10-29 23:39 | OP ---
DATE OF OPERATION: 10/09/2019 PREOPERATIVE DIAGNOSIS: Polymyositis. POSTOPERATIVE DIAGNOSIS: Polymyositis. PROCEDURE: Right thigh muscle biopsy. SURGEON: Javon Lynn DO ANESTHESIA: Fractional. BLOOD LOSS: 10 mL. INDICATIONS: Patient is a 24-year-old female that is admitted to the hospital. After Neurology and Rheumatology saw the patient, they feel that the patient might have polymyositis and they want a right thigh muscle biopsy. Patient was consented for the procedure, understanding all of the risks, benefits, alternatives. DESCRIPTION OF PROCEDURE: She was then taken to the operating room. Once in the operative suite, she was placed on the operating table in the supine manner. The area of the right thigh was prepped and draped in the sterile surgical manner. We then went ahead and injected 15 mL of lidocaine 1% in the area and went ahead and took a number 15-blade and made a 3-cm incision over the right thigh. Bovie electrocautery was used to secure hemostasis. We got down through all of the subcutaneous tissue and got down to the fascia. Once to the fascia, we were able to identify the rectus femoris muscle. We went ahead and took an Allis clamp and we were able to grab the muscle. Using a number 15-blade, we were able to excise the muscle and send it down to Pathology. Bovie electrocautery was used to control hemostasis. We then went ahead and irrigated the wound copiously. We then used 3-0 Vicryl. The subcutaneous tissues were approximated in an interrupted manner. We then took 4-0 Biosyn and the skin was closed in the subcuticular running fashion. The areas were then dried and Dermabond was placed. Patient tolerated the procedure with no complications. Patient was transferred to the PACU in stable condition. JAVON LYNN DO CHANNEL CEMENTER/[id number]
== END 2019-10-17 19:49 | disposition home or self-care (01) | DRG 346 ==
LOC: JER 02:23 → JERBED 06:08 → J4S 10-06 23:13
PROVIDERS: ADMIT Internal Medicine; ATTEND Internal Medicine
PROC: 0KBQ0ZX Excision of Right Upper Leg Muscle, Open Approach, Diagnostic (ICD-10-PCS; principal; 2019-10-09 09:00)
DX: M33.20 Polymyositis, organ involvement unspecified (principal); M62.82 Rhabdomyolysis; R74.0 Nonspecific elevation of levels of transaminase and lactic acid dehydrogenase [LDH]; K76.0 Fatty (change of) liver, not elsewhere classified; R31.9 Hematuria, unspecified; R80.9 Proteinuria, unspecified; E87.6 Hypokalemia; F34.1 Dysthymic disorder; F43.29 Adjustment disorder with other symptoms; Z68.37 Body mass index [BMI] 37.0-37.9, adult; D64.9 Anemia, unspecified; E03.9 Hypothyroidism, unspecified; E66.9 Obesity, unspecified; M54.2 Cervicalgia; W18.09XA Striking against other object with subsequent fall, initial encounter; Y93.89 Activity, other specified; Y92.230 Patient room in hospital as the place of occurrence of the external cause; Y99.8 Other external cause status; M45.2 Ankylosing spondylitis of cervical region
CPT/HCPCS: 36415; 70450-TC; 71045-TC-FY; 72125-TC; 76700-TC; 80048; 80053; 80061; 80307; 81003; 82550; 82553; 82728; 82746; 83036; 83540; 83550; 83615; 83721; 83735; 84100; 84436; 84439; 84443; 84479; 84481; 84484; 84703; 85025; 85027; 85610; 85613; 85651; 85730; 85732; 86038; 86140; 86162; 86225; 86618; 86704; 86706; 86707; 86708; 86709; 86850; 86900; 86901; 87340; 87522; 87804; 88300-TC; 93005; 93010; 93306-TC; 94760; 97116-GP; 97162-GP; 99285-25; J0131; J1644; J7030; J8610

== ENCOUNTER 2019-10-20 14:45 | Inpatient (IN) | payer OTHER ==
--- NOTE | 2019-10-20 15:10 | PDOC ---
Rapid Medical Evaluation Time Seen by Provider: 10/20/19 15:05 Medical Evaluation: Allergies Allergy/AdvReac Type Severity Reaction Status Date / Time No Known Allergies Allergy Verified 10/20/19 15:05 10/20/19 15:05 This patient had brief-in person evaluation in triage cc: shortness of breath HPI: Patient reports full body edema since leaving the hospital 2 weeks ago. Also reports shortness of breath and difficulty walking PE: NAD lungs clear bilaterally heart s1s2 orders: labs This patient will proceed to main ed for further evaluation Discharge Disposition - Diagnosis Shortness of breath - Referrals - Patient Instructions - Post Discharge Activity
[2019-10-20 15:46] LABS: BASO % 0.1 % (0-2.0); EOS % 0.2 % (0-4.5); HEMATOCRIT 30.2 % (32.4-45.2); HEMOGLOBIN 9.7 GM/dL (10.7-15.3); LYMPH % 11.7 % (8-40); MCH 25.4 pg (25.7-33.7); MEAN CELL VOLUME 79.4 fl (80-96); MEAN PLT VOLUME 8.5 fl (7.5-11.1); MONO % 9.4 % (3.8-10.2); NEUT % 78.6 % (42.8-82.8); PLATELET COUNT 286 K/MM3 (134-434); WHITE BLOOD COUNT 12.5 K/mm3 (4.0-10.0)
[2019-10-20 15:58] LABS: INR 1.2 (0.83-1.09); PROTHROMBIN TIME (PATIENT) 14.2 SEC (9.7-13.0)
[2019-10-20 16:01] LABS: ACTIVATED PTT 25.5 SECONDS (25.2-36.5)
[2019-10-20] MEDS ORDERED: FUROSEMIDE 40 MG/4 ML INJECTABLE VIAL IVPUSH ONE (16:05)
[2019-10-20 16:13] LABS: ALBUMIN 3.3 g/dl (3.4-5.0); BILIRUBIN,TOTAL 0.6 mg/dL (0.2-1); BLOOD UREA NITROGEN 8.7 mg/dL (7-18); CALCIUM 8.8 mg/dL (8.5-10.1); CREATININE 0.5 mg/dL (0.55-1.3); POTASSIUM 3.5 mmol/L (3.5-5.1); TOT PROT 6.7 g/dl (6.4-8.2)
--- NOTE | 2019-10-20 16:29 | PDOC ---
History of Present Illness - General Chief Complaint: Edema Stated Complaint: SOB Time Seen by Provider: 10/20/19 15:05 History Source: Patient Exam Limitations: No Limitations - History of Present Illness Initial Comments: 10/20/19 16:29 24-year-old female presents the ED with continual worsening lower extremity edema now extending to her abdomen. Patient also states intermittent shortness of breath with exertion and when lying flat. Patient denies fever, chills , vomiting, diarrhea or change in urine pattern. Patient was recently admitted here where she received IV Lasix along with steroids upon discharge. Patient was sent here by Dr. Bernal, sales engineer engineered products for iv diuretics Is this a multiple visit Asthma Patient?: No Timing/Duration: getting worse Severity: mild Associated Symptoms: reports: shortness of breath, weakness Past History - Travel Traveled outside of the country in the last 30 days: No Close contact w/someone who was outside of country & ill: No - Past Medical History Allergies/Adverse Reactions: Allergies Allergy/AdvReac Type Severity Reaction Status Date / Time No Known Allergies Allergy Verified 10/20/19 15:11 Home Medications: Ambulatory Orders Bacitracin - [Bacitracin Topical Ointment -] 1 applic TP DAILY #1 tube 10/17/19 Folic Acid - 1 mg PO DAILY #30 tablet 10/17/19 Methotrexate [Mexate -] 15 mg PO Q7D #12 tablet 10/17/19 Pantoprazole Sodium [Protonix -] 40 mg PO DAILY #30 tablet.ec 10/17/19 Walker [Ultra-Light Rollator] 1 each ASDIR #1 each 10/17/19 predniSONE [Deltasone -] 30 mg PO BID #84 tab 10/17/19 CVA: No COPD: No - Immunization History Immunization Up to Date: Yes - Psycho Social/Smoking Cessation Hx Smoking History: Never smoked Have you smoked in the past 12 months: No Information on smoking cessation initiated: No Hx Alcohol Use: No Drug/Substance Use Hx: No Substance Use Type: None Hx Substance Use Treatment: No Patient Lives Alone: No Lives with/in: parents Review of Systems - Review of Systems Able to Perform ROS?: No Constitutional: Yes: Weakness HEENTM: No: Symptoms Reported Respiratory: Yes: Orthopnea, SOB with Exertion Cardiac (ROS): Yes: Edema ABD/GI: No: Symptoms Reported : No: Symptoms Reported Musculoskeletal: No: Symptoms Reported Integumentary: Yes: Other *Physical Exam - Vital Signs Last Vital Signs Temp Pulse Resp BP Pulse Ox 98.7 F 81 20 161/87 98 10/20/19 15:05 10/20/19 15:05 10/20/19 15:05 10/20/19 15:05 10/20/19 15:05 - Physical Exam General Appearance: Yes: Nourished, Appropriately Dressed. No: Apparent Distress HEENT: negative: Pale Conjunctivae Neck: positive: Supple Respiratory/Chest: positive: Lungs Clear, Normal Breath Sounds. negative: Respiratory Distress, Accessory Muscle Use Cardiovascular: positive: Regular Rhythm, Regular Rate. negative: Murmur Gastrointestinal/Abdominal: positive: Soft. negative: Tenderness Extremity: positive: Pedal Edema (3 + pitting edema) Integumentary: positive: Normal Color, Warm, Moist Neurologic: positive: Motor Strength 5/5 (ambulatory) ED Treatment Course - LABORATORY CBC & Chemistry Diagram: 10/20/19 15:27 10/20/19 15:27 - ADDITIONAL ORDERS Additional order review: Laboratory Results 10/20/19 10/20/19 15:27 15:23 PT with INR 14.20 H INR 1.20 H PTT (Actin FS) 25.5 Sodium 138 Potassium 3.5 Chloride 101 Carbon Dioxide 32 Anion Gap 6 L BUN 8.7 Creatinine 0.5 L Est GFR (CKD-EPI)AfAm 155.90 Est GFR (CKD-EPI)NonAf 134.52 Random Glucose 98 Calcium 8.8 Total Bilirubin 0.6 AST 192 H ALT 219 H Alkaline Phosphatase 35 L Total Protein 6.7 Albumin 3.3 L 10/20/19 15:27 RBC 3.80 MCV 79.4 L MCHC 32.0 RDW 18.0 H MPV 8.5 Neutrophils % 78.6 Lymphocytes % 11.7 Monocytes % 9.4 Eosinophils % 0.2 D Basophils % 0.1 Medical Decision Making - Medical Decision Making 10/20/19 16:03 CC: lower extremity edema worsening over the past few days now radiating to abdomen Exam: 3+ pitting edema, vss Plan: labs, urine, iv lasix, 10/20/19 17:36 Laboratory Tests 10/20/19 15:27 Sodium 138 Potassium 3.5 Chloride 101 Carbon Dioxide 32 Anion Gap 6 L BUN 8.7 Creatinine 0.5 L Est GFR (CKD-EPI)AfAm 155.90 Est GFR (CKD-EPI)NonAf 134.52 Random Glucose 98 Calcium 8.8 Magnesium 2.0 Total Bilirubin 0.6 AST 192 H ALT 219 H Alkaline Phosphatase 35 L Creatine Kinase 6312 H Creatine Kinase Index Pending CK-MB (CK-2) Pending Troponin I 0.18 H Total Protein 6.7 Albumin 3.3 L Microblog sent to hospitalist for admission. Discharge - Discharge Information Problems reviewed: Yes Clinical Impression/Diagnosis: Elevated CPK, Elevated troponin, Anasarca - Admission Yes - Follow up/Referral Referrals: Sid Perry MD [Primary Care Provider] - - Patient Discharge Instructions - Post Discharge Activity
[2019-10-20] MEDS ORDERED: FUROSEMIDE 40 MG/4 ML INJECTABLE VIAL ONE (16:55)
[2019-10-20] MEDS ORDERED: POTASSIUM CHLORIDE TABS 20 MEQ TABLET.ER (FP) PO ONE ×2 (17:40→18:53)
--- NOTE | 2019-10-20 19:26 | CONSULT ---
Consult Consult Specialty:: Nephrology Reason for Consultation:: fluid overload - History of Present Illness Chief Complaint: edema History of Present Illness: Pt is a 24 year old female with hx of possible polymyositis who presents with worsening edema. She called me and said that her lower extremities are swollen and that the edema is up to her abdomen. She denies shortness of breath. She in on prednisone. - History Source History Provided By: Patient - Alcohol/Substance Use Hx Alcohol Use: No - Smoking History Smoking history: Never smoked Have you smoked in the past 12 months: No - Social History Usual Living Arrangement: Alone (elevator apartment) ADL: Independent (without AD) Home Medications - Allergies Allergies/Adverse Reactions: Allergies Allergy/AdvReac Type Severity Reaction Status Date / Time No Known Allergies Allergy Verified 10/20/19 15:11 - Home Medications Home Medications: Ambulatory Orders Bacitracin - [Bacitracin Topical Ointment -] 1 applic TP DAILY #1 tube 10/17/19 Folic Acid - 1 mg PO DAILY #30 tablet 10/17/19 Methotrexate [Mexate -] 15 mg PO Q7D #12 tablet 10/17/19 Pantoprazole Sodium [Protonix -] 40 mg PO DAILY #30 tablet.ec 10/17/19 Walker [Ultra-Light Rollator] 1 each MC ASDIR #1 each 10/17/19 predniSONE [Deltasone -] 30 mg PO BID #84 tab 10/17/19 Family Medical History Family History: Denies Review of Systems - Review of Systems Constitutional: reports: Malaise Eyes: reports: No Symptoms HENT: reports: No Symptoms Neck: reports: No Symptoms Cardiovascular: reports: Edema Respiratory: reports: No Symptoms Gastrointestinal: reports: No Symptoms Musculoskeletal: reports: No Symptoms Neurological: reports: No Symptoms Hematology/Lymphatic: reports: No Symptoms Psychiatric: reports: No Symptoms Physical Exam Vital Signs: Vital Signs Temperature 98.7 F 10/20/19 15:05 Pulse Rate 81 10/20/19 15:05 Respiratory Rate 20 10/20/19 15:05 Blood Pressure 161/87 10/20/19 15:05 O2 Sat by Pulse Oximetry (%) 98 10/20/19 15:05 Constitutional: Yes: Calm Eyes: Yes: Conjunctiva Clear HENT: Yes: Atraumatic Neck: Yes: Supple Cardiovascular: Yes: S1, S2 Respiratory: Yes: CTA Bilaterally Gastrointestinal: Yes: Soft Renal/: Yes: WNL Musculoskeletal: Yes: WNL Edema: Yes Edema: LLE: 3+, RLE: 3+ Neurological: Yes: Oriented Psychiatric: Yes: Oriented Labs: CBC, BMP 10/20/19 15:27 10/20/19 15:27 Assessment/Plan Impression 1. r/o polymyositis 2. fluid overload 3. edema 4. transaminitis 5. leukocytosis Plan - start lasix - give potassium dose - check cpk - hold off fluids for now - monitor volume status - rheum eval
[2019-10-20] MEDS ORDERED: WALKER MC SCH (19:45)
--- NOTE | 2019-10-20 19:58 | HP ---
CHIEF COMPLAINT: LE swelling PCP: Dr. 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 Patient was recently discharged from this institution after presenting with lower extremity weakness, she had a muscle biopsy performed pending results and was treated with steroids and methotrexate after being evaluated by rheumatology. Since discharge the patient had increasing lower extremity edema, dyspnea on exertion, and orthopnea. Also endorsed some lower extremity weakness and ear fullness. Denied chest pain, abdominal pain, nausea, vomiting, fever, chills, headaches, dizziness, lightheadedness, syncope, difficulty swallowing, numbness, tingling. Denied recent travel or sick contacts. She called Dr. Bernal noting that she had leg swelling and was told to come to the emergency room for diuresis. ER course was notable for: (1) WBC 12.5, AST 192, ALT 219, CK 6312, CK-MB 115.1, trop 0.18, Alb 3.3 (2) Given Lasix 40mg IV, Kdur 40Meq Recent Travel: denies PAST MEDICAL HISTORY: as above PAST SURGICAL HISTORY: Breast reduction, bilateral lens surgery, abdominoplasty Social History: Smoking: denies Alcohol: denies Drugs: denies Allergies No Known Allergies Allergy (Verified 10/20/19 15:11) HOME MEDICATIONS: Home Medications Medication Instructions Recorded Bacitracin - [Bacitracin Topical 1 applic TP DAILY #1 tube 10/17/19 Ointment -] Folic Acid - 1 mg PO DAILY #30 tablet 10/17/19 Methotrexate [Mexate -] 15 mg PO Q7D #12 tablet 10/17/19 Pantoprazole Sodium [Protonix -] 40 mg PO DAILY #30 tablet.ec 10/17/19 Walker [Ultra-Light Rollator] 1 each ASDIR #1 each 10/17/19 predniSONE [Deltasone -] 30 mg PO BID #84 tab 10/17/19 REVIEW OF SYSTEMS CONSTITUTIONAL: Absent: fever, chills, diaphoresis, generalized weakness, malaise, loss of appetite, weight change HEENT: Absent: rhinorrhea, nasal congestion, throat pain, throat swelling, difficulty swallowing, visual changes CARDIOVASCULAR: peripheral edema above the thighs Absent: chest pain, syncope, palpitations, irregular heart rate, lightheadedness , RESPIRATORY: dyspnea with exertion, orthopnea Absent: cough, shortness of breath, wheezing, stridor, hemoptysis GASTROINTESTINAL: Absent: abdominal pain, abdominal distension, nausea, vomiting, diarrhea, constipation, GENITOURINARY: Absent: dysuria, frequency, urgency, hesitancy, hematuria, flank pain MUSCULOSKELETAL: Absent: myalgia, arthralgia, joint swelling, back pain, neck pain SKIN: Absent: rash, itching, pallor HEMATOLOGIC/IMMUNOLOGIC: Absent: easy bleeding, easy bruising, lymphadenopathy, frequent infections ENDOCRINE: Absent: unexplained weight gain, unexplained weight loss, heat intolerance, cold intolerance NEUROLOGIC: Absent: headache, focal weakness or paresthesias, dizziness, unsteady gait, seizure, mental status changes PSYCHIATRIC: Absent: anxiety, depression, suicidal or homicidal ideation, hallucinations. PHYSICAL EXAMINATION Vital Signs - 24 hr 10/20/19 10/20/19 15:05 19:00 Temperature 98.7 F 97.7 F Pulse Rate 81 Pulse Rate [ 64 Apical] Respiratory 20 19 Rate Blood Pressure 161/87 Blood Pressure 139/70 [Left Arm] O2 Sat by Pulse 98 99 Oximetry (%) GENERAL: Awake, alert, and fully oriented, in no acute distress. HEAD: Normal with no signs of trauma. EYES: Pupils equal, round and reactive to light, extraocular movements intact, sclera anicteric, conjunctiva clear. EARS, NOSE, THROAT: Ears normal, tympanic membranes with no fluid or external lesions, oropharynx clear without exudates. Moist mucous membranes. NECK: Normal range of motion, supple without lymphadenopathy, JVD. LUNGS: Breath sounds equal, clear to auscultation bilaterally. No wheezes, and no crackles. No accessory muscle use. HEART: Regular rate and rhythm, normal S1 and S2 without murmur, rub. ABDOMEN: Soft, nontender, not distended, normoactive bowel sounds, no guarding, no rebound, no masses. MUSCULOSKELETAL: Normal range of motion at all joints. No bony deformities or tenderness. No CVA tenderness. UPPER EXTREMITIES: 2+ pulses, warm, well-perfused. No cyanosis. No clubbing. LOWER EXTREMITIES: 2+ pulses, warm, well-perfused. No calf tenderness. 3+ pitting edema up to the thighs, with mild extension into the abdomen. NEUROLOGICAL: Cranial nerves II-XII intact. 5/5 muscle strength in the upper extremities. 4/5 muscle strength in the lower extremities. Sensation intact to gross touch throughout. Wide based antalgic gait. PSYCHIATRIC: Cooperative. Good eye contact. Appropriate mood and affect. SKIN: Warm, dry, normal turgor, no rashes or lesions noted, normal capillary refill. Laboratory Results - last 24 hr 10/20/19 10/20/19 10/20/19 15:23 15:27 15:27 WBC 12.5 H RBC 3.80 Hgb 9.7 L Hct 30.2 L MCV 79.4 L MCH 25.4 L MCHC 32.0 RDW 18.0 H Plt Count 286 MPV 8.5 Absolute Neuts (auto) 9.8 H Neutrophils % 78.6 Lymphocytes % 11.7 Monocytes % 9.4 Eosinophils % 0.2 D Basophils % 0.1 Nucleated RBC % 0 PT with INR 14.20 H INR 1.20 H PTT (Actin FS) 25.5 Sodium 138 Potassium 3.5 Chloride 101 Carbon Dioxide 32 Anion Gap 6 L BUN 8.7 Creatinine 0.5 L Est GFR (CKD-EPI)AfAm 155.90 Est GFR (CKD-EPI)NonAf 134.52 Random Glucose 98 Calcium 8.8 Magnesium 2.0 Total Bilirubin 0.6 AST 192 H ALT 219 H Alkaline Phosphatase 35 L Creatine Kinase 6312 H Creatine Kinase Index 1.8 CK-MB (CK-2) 115.1 H Troponin I 0.18 H Total Protein 6.7 Albumin 3.3 L ASSESSMENT/PLAN: Jerri Ohara is a 24 year female with a past medical history of myositis/ myopathy admitted for worsening LE edema. LE edema - likely in setting of previous IV fluid administration and steroid medication - continue Lasix 40mg IV daily - monitor potassium and replete as necessary - nephrology consulted, recs appreciated - closely monitor fluid status - I+Os, daily weights - urine studies Myopathy/Myositis - await biopsy results - rheumatology consulted - continue home prednisone - continue home methotrexate weekly on Tuesdays - elevated CPK, AST/ALT, troponins, WBC all likely from chronic disease, CK elevated from previous admission, continue to monitor in setting of diuresis - on previous admission RUQ done showing mild diffuse hepatic steatosis and echo noting EF 65-70%, normal LV size, function, thickness, trace mitral and tricuspid regurg - physical therapy - will likely need to see PM&R specialist upon discharge, was previously seen inpatient Anemia - on last admission iron studies showing likely anemia of chronic disease - continue to monitor Obesity - BMI 33.6 - dietary consulted DVT PPx - Lovenox 40 mg subq daily FEN - no standing fluids, caution with fluids in setting of volume overload - continue to monitor electrolytes and replete as necessary, closely monitor potassium in setting of diuresis - Regular diet Dispo - admit to Med-surg Family Medical History Family History: Denies Visit type - Emergency Visit Emergency Visit: Yes ED Registration Date: 10/20/19 Care time: The patient presented to the Emergency Department on the above date and was hospitalized for further evaluation of their emergent condition. - New Patient This patient is new to me today: Yes Date on this admission: 10/21/19 - Critical Care Critical Care patient: No
--- NOTE | 2019-10-20 20:18 | PN ---
Teaching Attending Note Name of Resident: Kaleb Kaminski ATTENDING PHYSICIAN STATEMENT I saw and evaluated the patient. I reviewed the resident's note and discussed the case with the resident. I agree with the resident's findings and plan as documented. SUBJECTIVE: This is a 24 year old woman who initially presented to the ED on with progressive muscle weakness which caused her to fall at home. She first noticed muscle weakness in 07/2019. She was found to have CK>14,000, elevated AST/ALT/LDH, elevated troponin, elevated TSH with normal T4/FT4/FT3/ T3U. She was evaluated by nephrology, rheumatology, cardiology, and physiatry. She was thought to have polymyositis and treated with steroids and methotrexate. Muscle biopsy was done on 10/09/2019. EMG was consistent with myopathy/myositis. Echo showed normal LV, normal LVEF, normal RV, trace MR, trace to mild TR. She was discharged on 10/17/2019 on prednisone, methotrexate, folic acid, and Protonix. Since returning home, she has been experiencing worsening leg edema. She reports occasional shortness of breath, but no change from at the time of her previous admission. OBJECTIVE: Vital Signs Period Temp Pulse Resp BP Sys/Newell Pulse Ox Last 24 Hr 97.7 F-98.7 F 64-81 19-20 139-161/70-87 98-99 HEART: S1S2, RRR LUNGS: Clear ABDOMEN: Obese, soft, non-tender, non-distended, normal BS EXTREMITIES: 2+ edema Laboratory Tests 10/20/19 10/20/19 10/20/19 15:23 15:27 15:27 WBC 12.5 H RBC 3.80 Hgb 9.7 L Hct 30.2 L MCV 79.4 L MCH 25.4 L MCHC 32.0 RDW 18.0 H Plt Count 286 MPV 8.5 Absolute Neuts (auto) 9.8 H Neutrophils % 78.6 Lymphocytes % 11.7 Monocytes % 9.4 Eosinophils % 0.2 D Basophils % 0.1 Nucleated RBC % 0 PT with INR 14.20 H INR 1.20 H PTT (Actin FS) 25.5 Sodium 138 Potassium 3.5 Chloride 101 Carbon Dioxide 32 Anion Gap 6 L BUN 8.7 Creatinine 0.5 L Est GFR (CKD-EPI)AfAm 155.90 Est GFR (CKD-EPI)NonAf 134.52 Random Glucose 98 Calcium 8.8 Magnesium 2.0 Total Bilirubin 0.6 AST 192 H ALT 219 H Alkaline Phosphatase 35 L Creatine Kinase 6312 H Creatine Kinase Index 1.8 CK-MB (CK-2) 115.1 H Troponin I 0.18 H Total Protein 6.7 Albumin 3.3 L Home Medications Medication Instructions Recorded Bacitracin - [Bacitracin Topical 1 applic TP DAILY #1 tube 10/17/19 Ointment -] Folic Acid - 1 mg PO DAILY #30 tablet 10/17/19 Methotrexate [Mexate -] 15 mg PO Q7D #12 tablet 10/17/19 Pantoprazole Sodium [Protonix -] 40 mg PO DAILY #30 tablet.ec 10/17/19 Walker [Ultra-Light Rollator] 1 each ASDIR #1 each 10/17/19 predniSONE [Deltasone -] 30 mg PO BID #84 tab 10/17/19 ASSESSMENT AND PLAN: This is a 24 year old woman with a recent diagnosis of possible polymyositis who presented to the ED with increasing leg edema. 1. Leg edema, worsening - Secondary to fluid overload, prednisone - Given Lasix IV in ED and she reports some decrease in leg edema - Continue Lasix IV 2. Possible polymyositis - Continue prednisone, methotrexate, folic acid - Muscle biopsy done 10/09 pending - CK 6312, increased from 4351 at discharge on 10/17 - AST/ALT remain elevated - Troponin elevated but decreased from 10/05 0.29 -> 0.18 - Rheumatology follow-up 3. Obesity with BMI 33.6
[2019-10-20 22:22] LABS: POTASSIUM 3.9 mmol/L (3.5-5.1)
[2019-10-20 22:39] VITALS: BMI 31.8
[2019-10-20] MEDS: predniSONE 10 MG TABLET (UD) PO SCH (22:40)
[2019-10-20 23:50] LABS: PH,URINE 8.5 (5.0-8.0); URINE APPEARANCE CLEAR; URINE BILIRUBIN NEGATIVE (NEGATIVE); URINE COLOR YELLOW; URINE GLUCOSE (UA) NEGATIVE (NEGATIVE); URINE KETONE NEGATIVE (NEGATIVE); URINE LEUK ESTERASE NEGATIVE (NEGATIVE); URINE NITRITE NEGATIVE (NEGATIVE); URINE PROTEIN NEGATIVE (NEGATIVE); URINE UROBILINOGEN 0.2 mg/dL (0.2-1.0)
[2019-10-21] MEDS ORDERED: ACETAMINOPHEN 325 MG TABLET (FP) PO ONE (05:48)
[2019-10-21 08:31] LABS: BASO % 0.1 % (0-2.0); EOS % 0.1 % (0-4.5); HEMATOCRIT 29.9 % (32.4-45.2); HEMOGLOBIN 9.7 GM/dL (10.7-15.3); LYMPH % 12.8 % (8-40); MCH 25.9 pg (25.7-33.7); MCHC 32.6 g/dl (32.0-36.0); MEAN CELL VOLUME 79.6 fl (80-96); MONO % 10.2 % (3.8-10.2); NEUT % 76.8 % (42.8-82.8); PLATELET COUNT 288 K/MM3 (134-434); RBC 3.75 M/mm3 (3.60-5.2); RDW 18.7 % (11.6-15.6); WHITE BLOOD COUNT 13.1 K/mm3 (4.0-10.0)
[2019-10-21 09:17] LABS: BILIRUBIN,TOTAL 1.1 mg/dL (0.2-1); BLOOD UREA NITROGEN 12.1 mg/dL (7-18); CALCIUM 8.9 mg/dL (8.5-10.1); CREATININE 0.5 mg/dL (0.55-1.3); MAGNESIUM 1.9 mg/dL (1.8-2.4); PHOSPHOROUS 3.7 mg/dL (2.5-4.9); POTASSIUM 3.6 mmol/L (3.5-5.1); TOT PROT 6.5 g/dl (6.4-8.2)
--- NOTE | 2019-10-21 09:27 | EKG ---
Test Reason : Blood Pressure : / mmHG Vent. Rate : 054 BPM Atrial Rate : 054 BPM P-R Int : 132 ms QRS Dur : 072 ms QT Int : 396 ms P-R-T Axes : 054 053 037 degrees QTc Int : 375 ms SINUS BRADYCARDIA OTHERWISE NORMAL ECG WHEN COMPARED WITH ECG OF 07-OCT-2019 09:13, VENT. RATE HAS DECREASED BY 41 BPM NONSPECIFIC T WAVE ABNORMALITY NOW EVIDENT IN ANTERIOR LEADS QT HAS SHORTENED Confirmed by Samuel Steward MD ([id number]) on 10/21/2019 9:27:15 AM Referred By: Confirmed By:Samuel Steward MD
[2019-10-21] MEDS: FUROSEMIDE 40 MG/4 ML INJECTABLE VIAL IVPUSH SCH (09:34)
[2019-10-21] MEDS: predniSONE 10 MG TABLET (UD) PO SCH ×2 (09:34→21:25)
[2019-10-21] MEDS: FOLIC ACID 1 MG TABLET (FP) PO SCH (09:34)
[2019-10-21] MEDS: PANTOPRAZOLE 40 MG TABLET PO SCH (09:34)
[2019-10-21] MEDS: ENOXAPARIN NA (PORCINE) 40 MG/0.4 ML DISP.SYRIN SQ SCH (09:34)
[2019-10-21] MEDS ORDERED: METHOTREXATE 2.5 MG TABLET PO SCH (10:00)
[2019-10-21] MEDS: BACITRACIN 15 GM TUBE TOPICAL OINTMENT TP SCH (10:56)
--- NOTE | 2019-10-21 15:10 | PN ---
Physical Exam: SUBJECTIVE: Patient seen and examined NAEON Endorses large amounts of urination. Has improved breathing. Has improved weakness of legs, improved tightness of legs OBJECTIVE: Vital Signs Period Temp Pulse Resp BP Sys/Newell Pulse Ox Last 24 Hr 97.7 F-98.7 F 64-81 18-20 139-161/67-99 98-99 GENERAL: The patient is awake, alert, and fully oriented, in no acute distress. HEAD: NC/AT EYES: extraocular movements intact, sclera anicteric, conjunctiva clear. No ptosis. ENT: Ears normal, nares patent, oropharynx clear without exudates, moist mucous membranes. No oral ulcers NECK: Trachea midline, full range of motion, supple. Neg cervical LAD LUNGS: CTAB, no accessory muscle use. HEART: Regular rate and rhythm, S1, S2 without murmur, rub or gallop. ABDOMEN: Soft, nontender, nondistended, no guarding, no rebound. EXTREMITIES: 2+ pulses, warm, well-perfused, 1+ edema to mid hernandez. Right anterior mid-thigh with ~4cm transverse surgical incision at site of muscle biopsy, no open drainage. NEUROLOGICAL: Cranial nerves II through XII grossly intact. Normal speech. 5/5 flexion/extension of B/L shoulder, B/L elbow flexion/extension. 5/5 flexion/ extension of BLE hip. PSYCH: normal mood SKIN: Warm, dry, normal turgor, no rashes or lesions noted Laboratory Results - last 24 hr 10/20/19 10/20/19 10/20/19 15:23 15:27 15:27 WBC 12.5 H RBC 3.80 Hgb 9.7 L Hct 30.2 L MCV 79.4 L MCH 25.4 L MCHC 32.0 RDW 18.0 H Plt Count 286 MPV 8.5 Absolute Neuts (auto) 9.8 H Neutrophils % 78.6 Lymphocytes % 11.7 Monocytes % 9.4 Eosinophils % 0.2 D Basophils % 0.1 Nucleated RBC % 0 PT with INR 14.20 H INR 1.20 H PTT (Actin FS) 25.5 Sodium 138 Potassium 3.5 Chloride 101 Carbon Dioxide 32 Anion Gap 6 L BUN 8.7 Creatinine 0.5 L Est GFR (CKD-EPI)AfAm 155.90 Est GFR (CKD-EPI)NonAf 134.52 Random Glucose 98 Calcium 8.8 Phosphorus Magnesium 2.0 Total Bilirubin 0.6 AST 192 H ALT 219 H Alkaline Phosphatase 35 L Creatine Kinase 6312 H Creatine Kinase Index 1.8 CK-MB (CK-2) 115.1 H Troponin I 0.18 H Total Protein 6.7 Albumin 3.3 L Urine Color Urine Appearance Urine pH Ur Specific [place] Urine Protein Urine Glucose (UA) Urine Ketones Urine Blood Urine Nitrite Urine Bilirubin Urine Urobilinogen Ur Leukocyte Esterase Ur Random Creatinine Ur Random Sodium Ur Random Potassium Ur Random Chloride 10/20/19 10/20/19 10/20/19 21:45 23:30 23:30 WBC RBC Hgb Hct MCV MCH MCHC RDW Plt Count MPV Absolute Neuts (auto) Neutrophils % Lymphocytes % Monocytes % Eosinophils % Basophils % Nucleated RBC % PT with INR INR PTT (Actin FS) Sodium 138 Potassium 3.9 Chloride 98 Carbon Dioxide 32 Anion Gap 8 BUN Creatinine Est GFR (CKD-EPI)AfAm Est GFR (CKD-EPI)NonAf Random Glucose Calcium Phosphorus Magnesium Total Bilirubin AST ALT Alkaline Phosphatase Creatine Kinase Creatine Kinase Index CK-MB (CK-2) Troponin I Total Protein Albumin Urine Color Yellow Urine Appearance Clear Urine pH 8.5 H D Ur Specific [place] 1.010 Urine Protein Negative Urine Glucose (UA) Negative Urine Ketones Negative Urine Blood Negative Urine Nitrite Negative Urine Bilirubin Negative Urine Urobilinogen 0.2 Ur Leukocyte Esterase Negative Ur Random Creatinine 23.0 L Ur Random Sodium Ur Random Potassium Ur Random Chloride 10/20/19 10/21/19 10/21/19 23:30 07:15 07:15 WBC 13.1 H RBC 3.75 Hgb 9.7 L Hct 29.9 L MCV 79.6 L MCH 25.9 MCHC 32.6 RDW 18.7 H Plt Count 288 MPV 9.0 Absolute Neuts (auto) 10.0 H Neutrophils % 76.8 Lymphocytes % 12.8 Monocytes % 10.2 Eosinophils % 0.1 Basophils % 0.1 Nucleated RBC % 0 PT with INR INR PTT (Actin FS) Sodium 138 Potassium 3.6 Chloride 100 Carbon Dioxide 32 Anion Gap 6 L BUN 12.1 Creatinine 0.5 L Est GFR (CKD-EPI)AfAm 155.90 Est GFR (CKD-EPI)NonAf 134.52 Random Glucose 117 H Calcium 8.9 Phosphorus 3.7 Magnesium 1.9 Total Bilirubin 1.1 H AST 143 H ALT 204 H Alkaline Phosphatase 34 L Creatine Kinase 4797 H Creatine Kinase Index 1.4 CK-MB (CK-2) 68.6 H Troponin I Total Protein 6.5 Albumin 3.0 L Urine Color Urine Appearance Urine pH Ur Specific [place] Urine Protein Urine Glucose (UA) Urine Ketones Urine Blood Urine Nitrite Urine Bilirubin Urine Urobilinogen Ur Leukocyte Esterase Ur Random Creatinine Ur Random Sodium 178 Ur Random Potassium 15.0 L Ur Random Chloride 158 Active Medications Generic Name Dose Route Start Last Admin Trade Name Parker PRN Reason Stop Dose Admin Bacitracin 1 applic 10/21/19 10:00 10/21/19 10:56 Bacitracin - TP 1 applic DAILY JESSI Administration Enoxaparin Sodium 40 mg 10/21/19 10:00 10/21/19 09:34 Lovenox - SQ 40 mg DAILY JESSI Administration Folic Acid 1 mg 10/21/19 10:00 10/21/19 09:34 Folic Acid - PO 1 mg DAILY JESSI Administration Furosemide 40 mg 10/21/19 10:00 10/21/19 09:34 Lasix Injection - IVPUSH 40 mg DAILY JESSI Administration Methotrexate 15 mg 10/21/19 10:00 10/21/19 10:56 Mexate - PO 15 mg Tu JESSI Administration Pantoprazole Sodium 40 mg 10/21/19 10:00 10/21/19 09:34 Protonix - PO 40 mg DAILY JESSI Administration Prednisone 30 mg 10/20/19 22:00 10/21/19 09:34 Deltasone - PO 30 mg BID JESSI Administration ASSESSMENT/PLAN: 24F w/ pmh significant for recent hospitalization(10/05/19 - 10/17/19) for proximal muscle weakness, decreased ability to ambulated; admitted and treated for presumptive polymyositis. Received IVF, steroids + methotrexate + folic acid. CPK had downtrended from >14k to ~4k prior to discharge. Referred to [facility]- ED by NephDanika) d/t continued BLE swelling and ortho. Given lasix IVP. # BLE Edema --likely iatrogenic from recent IVF + prednisonse ---resolving > CPK: 6312, 4797 > UA: neg protein, neg blood - NephDanika) consult: --HOLD IVF for now --lasix --trend CPK # Proximal BLE weakness --possibly Polymyositis - Rheumatology(Futran) consult: --recs pending #Tropinemia --likley 2/2 to rhabdomyolysis > Troponin 0.18 > CPK: 6312, 4797 > Echo(10/06/19): LVEF 65-70% #Transaminitis --likely 2/2 to rhabdomyolysis > AST/ALT: 192/219, 143/204 > US Abd(10/05/19): mild diffuse hepatic steatosis -will c/w trend #Microcytic anemia --no known FH, no active menstruation, no signs of GIB > Hgb 9.7, MCV 79 - outpt anemia w/u(thalessemias, etc) #FEN - monitor electrolytes and replete as needed - Regular Diet #DVT Ppx. -enoxaparin Visit type - Emergency Visit Emergency Visit: No - New Patient This patient is new to me today: No - Critical Care Critical Care patient: No ATTENDING PHYSICIAN STATEMENT I saw and evaluated the patient. I reviewed the resident's note and discussed the case with the resident. I agree with the resident's findings and plan as documented. SUBJECTIVE: OBJECTIVE: ASSESSMENT AND PLAN:
--- NOTE | 2019-10-21 17:08 | PN ---
Teaching Attending Note Name of Resident: Maximino Meraz ATTENDING PHYSICIAN STATEMENT I saw and evaluated the patient. I reviewed the resident's note and discussed the case with the resident. I agree with the resident's findings and plan as documented. SUBJECTIVE: Patient is a 24yo female , with recent discharge , called the nephrology and was send to ED since patient was experiencing swelling of lower extremities. OBJECTIVE: Vital Signs Temperature 97.8 F 10/21/19 14:36 Pulse Rate 72 10/21/19 14:36 Respiratory Rate 20 10/21/19 14:36 Blood Pressure 152/80 10/21/19 14:36 O2 Sat by Pulse Oximetry (%) 98 10/21/19 09:00 GENERAL: The patient is awake, alert, and fully oriented, in no acute distress. HEAD: Normal with no signs of trauma. EYES: PERRL, extraocular movements intact, sclera anicteric, conjunctiva clear. ENT: Ears normal, oropharynx clear without exudates, moist mucous membranes. NECK: Trachea midline, full range of motion, supple. LUNGS: Breath sounds equal, clear to auscultation bilaterally, no wheezes, no crackles, no accessory muscle use. HEART: Regular rate and rhythm, S1, S2 without murmur, rub or gallop. ABDOMEN: Soft, nontender, nondistended, normoactive bowel sounds, no guarding, no rebound, no hepatosplenomegaly, no masses. EXTREMITIES: 2+ pulses, warm, well-perfused, + edema upper thighs. NEUROLOGICAL: Cranial nerves II through XII grossly intact. Normal speech, gait not observed. PSYCH: Normal mood, normal affect. SKIN: Warm, dry, normal turgor, no rashes or lesions noted CBCD WBC 13.1 K/mm3 (4.0-10.0) H 10/21/19 07:15 RBC 3.75 M/mm3 (3.60-5.2) 10/21/19 07:15 Hgb 9.7 GM/dL (10.7-15.3) L 10/21/19 07:15 Hct 29.9 % (32.4-45.2) L 10/21/19 07:15 MCV 79.6 fl (80-96) L 10/21/19 07:15 MCHC 32.6 g/dl (32.0-36.0) 02/04/20 07:15 RDW 18.7 % (11.6-15.6) H 10/21/19 07:15 Plt Count 288 K/MM3 (134-434) 10/21/19 07:15 MPV 9.0 fl (7.5-11.1) 10/21/19 07:15 CMP Sodium 138 mmol/L (136-145) 10/21/19 07:15 Potassium 3.6 mmol/L (3.5-5.1) 10/21/19 07:15 Chloride 100 mmol/L (98-107) 10/21/19 07:15 Carbon Dioxide 32 mmol/L (21-32) 10/21/19 07:15 Anion Gap 6 MMOL/L (8-16) L 10/21/19 07:15 BUN 12.1 mg/dL (7-18) 10/21/19 07:15 Creatinine 0.5 mg/dL (0.55-1.3) L 10/21/19 07:15 Random Glucose 117 mg/dL (74-106) H 10/21/19 07:15 Calcium 8.9 mg/dL (8.5-10.1) 10/21/19 07:15 Total Bilirubin 1.1 mg/dL (0.2-1) H 10/21/19 07:15 AST 143 U/L (15-37) H 10/21/19 07:15 ALT 204 U/L (13-61) H 10/21/19 07:15 Alkaline Phosphatase 34 U/L (45-117) L 10/21/19 07:15 Total Protein 6.5 g/dl (6.4-8.2) 10/21/19 07:15 Albumin 3.0 g/dl (3.4-5.0) L 10/21/19 07:15 CARDIAC ENZYMES Creatine Kinase 4797 U/L (26-192) H 10/21/19 07:15 Troponin I 0.18 ng/ml (0.00-0.05) H 10/20/19 15:27 Current Medications Generic Name Dose Route Start Last Admin Trade Name Freq PRN Reason Stop Dose Admin Bacitracin 1 applic 10/21/19 10:00 10/21/19 10:56 Bacitracin - TP 1 applic DAILY JESSI Administration Enoxaparin Sodium 40 mg 10/21/19 10:00 10/21/19 09:34 Lovenox - SQ 40 mg DAILY JESSI Administration Folic Acid 1 mg 10/21/19 10:00 10/21/19 09:34 Folic Acid - PO 1 mg DAILY JESSI Administration Furosemide 40 mg 10/21/19 10:00 10/21/19 09:34 Lasix Injection - IVPUSH 40 mg DAILY JESSI Administration Methotrexate 15 mg 10/21/19 10:00 10/21/19 10:56 Mexate - PO 15 mg Tu JESSI Administration Pantoprazole Sodium 40 mg 10/21/19 10:00 10/21/19 09:34 Protonix - PO 40 mg DAILY JESSI Administration Prednisone 30 mg 10/20/19 22:00 10/21/19 09:34 Deltasone - PO 30 mg BID JESSI Administration Home Medications Medication Instructions Recorded Bacitracin - [Bacitracin Topical 1 applic TP DAILY #1 tube 10/17/19 Ointment -] Folic Acid - 1 mg PO DAILY #30 tablet 10/17/19 Methotrexate [Mexate -] 15 mg PO Q7D #12 tablet 10/17/19 Pantoprazole Sodium [Protonix -] 40 mg PO DAILY #30 tablet.ec 10/17/19 Walker [Ultra-Light Rollator] 1 each MC ASDIR #1 each 10/17/19 predniSONE [Deltasone -] 30 mg PO BID #84 tab 10/17/19 ASSESSMENT AND PLAN: This is a 24 year old woman with a recent diagnosis of possible polymyositis who presented to the ED with increasing leg edema. #Upper thigh /Leg edema,presented with worsening swelling , on lasix IV 40mg as per nephro # polymyositis : improving , Dr. Kelly will adjust the dose of prednisone, methotrexate, folic acid, Muscle biopsy done 10/09 from right thigh is still pending the result. # aCUTE OVER CHRONIC RHABDO: 4351 ON DC(10/17) --> CK 6312 #Acute transaminitis: continue to monitor #troponemia: 10/05 ;0.29 -> 0.18 # Obesity with BMI 31 might need repeat EMG/NC as an out pt, continue PT Rheumatology appointment was made for her in October by the team since insurance was an issue, patient will follow up with dr colby upon discharge and follow up with the clinic in a week with dr cabezas. dvt px: lovenox
[2019-10-21] MEDS ORDERED: POTASSIUM CHLORIDE TABS 20 MEQ TABLET.ER (FP) PO ONE (18:14)
--- NOTE | 2019-10-21 18:16 | PN ---
Progress Note, Physician History of Present Illness: Pt seen and examined at bedside. She feels that her edema is improving. - Current Medication List Current Medications: Active Medications Bacitracin (Bacitracin -) 1 applic TP DAILY [facility] Last Admin: 10/21/19 10:56 Dose: 1 applic Enoxaparin Sodium (Lovenox -) 40 mg SQ DAILY [facility] Last Admin: 10/21/19 09:34 Dose: 40 mg Folic Acid (Folic Acid -) 1 mg PO DAILY [facility] Last Admin: 10/21/19 09:34 Dose: 1 mg Furosemide (Lasix Injection -) 40 mg IVPUSH DAILY [facility] Last Admin: 10/21/19 09:34 Dose: 40 mg Methotrexate (Mexate -) 15 mg PO Tu [facility] Last Admin: 10/21/19 10:56 Dose: 15 mg Pantoprazole Sodium (Protonix -) 40 mg PO DAILY [facility] Last Admin: 10/21/19 09:34 Dose: 40 mg Prednisone (Deltasone -) 30 mg PO BID [facility] Last Admin: 10/21/19 09:34 Dose: 30 mg - Objective Vital Signs: Vital Signs Temperature 97.8 F 10/21/19 14:36 Pulse Rate 72 10/21/19 14:36 Respiratory Rate 20 10/21/19 14:36 Blood Pressure 152/80 10/21/19 14:36 O2 Sat by Pulse Oximetry (%) 98 10/21/19 09:00 Constitutional: Yes: Calm Eyes: Yes: Conjunctiva Clear HENT: Yes: Atraumatic Neck: Yes: Supple Cardiovascular: Yes: S1, S2 Respiratory: Yes: CTA Bilaterally Gastrointestinal: Yes: Soft Genitourinary: Yes: WNL Musculoskeletal: Yes: WNL Edema: Yes Edema: LLE: 2+, RLE: 2+ Neurological: Yes: Oriented Psychiatric: Yes: Oriented Labs: CBC, BMP 10/21/19 07:15 10/21/19 07:15 INR, PTT INR 1.20 (0.83-1.09) H 10/20/19 15:23 Assessment/Plan Current Medications Generic Name Dose Route Start Last Admin Trade Name Freq PRN Reason Stop Dose Admin Bacitracin 1 applic 10/21/19 10:00 10/21/19 10:56 Bacitracin - TP 1 applic DAILY [facility] Administration Enoxaparin Sodium 40 mg 10/21/19 10:00 10/21/19 09:34 Lovenox - SQ 40 mg DAILY JESSI Administration Folic Acid 1 mg 10/21/19 10:00 10/21/19 09:34 Folic Acid - PO 1 mg DAILY JESSI Administration Furosemide 40 mg 10/21/19 10:00 10/21/19 09:34 Lasix Injection - IVPUSH 40 mg DAILY JESSI Administration Methotrexate 15 mg 10/21/19 10:00 10/21/19 10:56 Mexate - PO 15 mg Tu JESSI Administration Pantoprazole Sodium 40 mg 10/21/19 10:00 10/21/19 09:34 Protonix - PO 40 mg DAILY JESSI Administration Potassium Chloride 40 meq 10/21/19 18:14 K-Dur - PO 10/21/19 18:15 ONCE ONE Prednisone 30 mg 10/20/19 22:00 10/21/19 09:34 Deltasone - PO 30 mg BID JESSI Administration Impression 1. r/o polymyositis 2. fluid overload 3. edema 4. transaminitis 5. leukocytosis Plan - cont lasix - volume status improving - will give a dose of potassium - consider gi eval for elevated bili - cpk improving - rheum eval
--- NOTE | 2019-10-21 20:00 | CONSULT ---
Consult Consult Specialty:: Rheumatology - History of Present Illness History of Present Illness: 24 year old female with probable polymyositis admitted with edema in lower limbs. HPI. The patient was admitted on 10/07/19 with a 4 month history of progressive weakness in upper and lower limbs. On admission shewasinitially diagnosed with Rhabdomyolysis and treated with intense hydration. CK was > 24709 (further quantification was done at [facility], results not available) and had elevation of transaminases (probably related to elevated CPK and muscle inflammation). EMG reported with myopathy and spontaneous activity. Evidence of axonal motor injury in peroneal and and ulnar nerves, possibly related to compression by edema. 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 Immunohistochemical staining was negative for protein deficiency. Electron microscopy: endomysial inflammatory infiltrated . 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 Further work-up: serology for hepatitis A, B and C , influenza and Lyme disease was negative. CHIKA 1:80 with speckled patter and CH50: 57. CXR: breasdt implants, otherwise normal. Abdominal US: mild diffuse hepatic steatosis, otherwise normal. The patient was started on Prednisone 30 mg BID and Methotrexate 15 mg/w. At the present time the patient reports improvement in muscle strength, however since the initial admission she had significant leg edema resulting in difficulty in walking. Since admission, as she was started on diuretics, she has been able to walk and climb stairs much better. The patient denies SOB, skin rash or fever. On this admission CK 6312 and today 4797. - History Source History Provided By: Patient, Medical Record Limitations to Obtaining History: No Limitations - Alcohol/Substance Use Hx Alcohol Use: No - Smoking History Smoking history: Never smoked Have you smoked in the past 12 months: No - Social History Usual Living Arrangement: Alone (elevator apartment) ADL: Independent (without AD) Home Medications - Allergies Allergies/Adverse Reactions: Allergies Allergy/AdvReac Type Severity Reaction Status Date / Time No Known Allergies Allergy Verified 10/20/19 15:11 - Home Medications Home Medications: Ambulatory Orders Bacitracin - [Bacitracin Topical Ointment -] 1 applic TP DAILY #1 tube 10/17/19 Folic Acid - 1 mg PO DAILY #30 tablet 10/17/19 Methotrexate [Mexate -] 15 mg PO Q7D #12 tablet 10/17/19 Pantoprazole Sodium [Protonix -] 40 mg PO DAILY #30 tablet.ec 10/17/19 Walker [Ultra-Light Rollator] 1 each ASDIR #1 each 10/17/19 predniSONE [Deltasone -] 30 mg PO BID #84 tab 10/17/19 Review of Systems - Review of Systems Constitutional: reports: No Symptoms Eyes: reports: No Symptoms HENT: reports: No Symptoms Neck: reports: No Symptoms Cardiovascular: reports: No Symptoms Respiratory: reports: No Symptoms Gastrointestinal: reports: No Symptoms Musculoskeletal: reports: Other (Muscle strength improving. No joint pain) Neurological: reports: No Symptoms Endocrine: reports: No Symptoms Physical Exam Vital Signs: Vital Signs Temperature 97.8 F 10/21/19 14:36 Pulse Rate 72 10/21/19 14:36 Respiratory Rate 10/21/19 14:36 Blood Pressure 152/80 10/21/19 14:36 O2 Sat by Pulse Oximetry (%) 98 10/21/19 09:00 Constitutional: Yes: No Distress Eyes: Yes: WNL HENT: Yes: WNL Neck: Yes: WNL Cardiovascular: Yes: WNL Respiratory: Yes: WNL Gastrointestinal: Yes: WNL Musculoskeletal: Yes: Other (4/5 proximal muscle weakness in upper and lower limbs - improving as compared to the previous admission) Edema: Yes Edema: LLE: 3+, RLE: 3+ Labs: CBC, BMP 10/21/19 07:15 10/21/19 07:15 Laboratory Tests 10/20/19 10/21/19 23:30 07:15 Est GFR (CKD-EPI)AfAm 155.90 AST 143 H ALT 204 H Alkaline Phosphatase 34 L Creatine Kinase 4797 H Urine Appearance Clear Urine pH 8.5 H D Ur Specific Jeannette 1.010 Urine Protein Negative Urine Glucose (UA) Negative Urine Ketones Negative Urine Blood Negative Urine Nitrite Negative Urine Bilirubin Negative Urine Urobilinogen 0.2 Ur Leukocyte Esterase Negative Problem List - Problems (1) Edema of lower extremity Assessment/Plan: [place] probably related to aggressive hydration on last admission, improving Code(s): R60.0 - LOCALIZED EDEMA (2) Polymyositis Assessment/Plan: Polymyositis, improving. Plam: Increase Methotrexate to 20 mg/week, decrease Prednisone to 40 mg/d. Pelvic US (to r/o malignancy) Code(s): M33.20 - POLYMYOSITIS, ORGAN INVOLVEMENT UNSPECIFIED
[2019-10-21] MEDS ORDERED: METHOTREXATE 2.5 MG TABLET PO ONE (21:00)
[2019-10-22] MEDS: BACITRACIN 15 GM TUBE TOPICAL OINTMENT TP SCH (09:42)
[2019-10-22] MEDS: FUROSEMIDE 40 MG/4 ML INJECTABLE VIAL IVPUSH SCH (09:42)
[2019-10-22] MEDS: FOLIC ACID 1 MG TABLET (FP) PO SCH (09:42)
[2019-10-22] MEDS: ENOXAPARIN NA (PORCINE) 40 MG/0.4 ML DISP.SYRIN SQ SCH (09:43)
[2019-10-22] MEDS: PANTOPRAZOLE 40 MG TABLET PO SCH (09:43)
[2019-10-22] MEDS ORDERED: predniSONE 20 MG TABLET (UD) PO SCH (10:00)
[2019-10-22 10:28] LABS: ALBUMIN 3.3 g/dl (3.4-5.0); BILIRUBIN,TOTAL 0.8 mg/dL (0.2-1); BLOOD UREA NITROGEN 16.6 mg/dL (7-18); CREATININE 0.4 mg/dL (0.55-1.3); POTASSIUM 4.2 mmol/L (3.5-5.1)
--- NOTE | 2019-10-22 13:26 | PN ---
Progress Note, Physician History of Present Illness: Pt seen and examined at bedside. She feels that her edema is improving. - Current Medication List Current Medications: Active Medications Bacitracin (Bacitracin -) 1 applic TP DAILY [facility] Last Admin: 10/22/19 09:42 Dose: 1 applic Enoxaparin Sodium (Lovenox -) 40 mg SQ DAILY [facility] Last Admin: 10/22/19 09:43 Dose: 40 mg Folic Acid (Folic Acid -) 1 mg PO DAILY JESSI Last Admin: 10/22/19 09:42 Dose: 1 mg Furosemide (Lasix Injection -) 40 mg IVPUSH DAILY [facility] Last Admin: 10/22/19 09:42 Dose: 40 mg Methotrexate (Mexate -) 20 mg PO Tu [facility] Pantoprazole Sodium (Protonix -) 40 mg PO DAILY [facility] Last Admin: 10/22/19 09:43 Dose: 40 mg Prednisone (Deltasone -) 40 mg PO DAILY [facility] Last Admin: 10/22/19 09:42 Dose: 40 mg - Objective Vital Signs: Vital Signs Temperature 98.4 F 10/22/19 09:00 Pulse Rate 73 10/22/19 09:00 Respiratory Rate 20 10/22/19 09:00 Blood Pressure 150/83 10/22/19 09:00 O2 Sat by Pulse Oximetry (%) 98 10/21/19 21:00 Constitutional: Yes: Calm Eyes: Yes: Conjunctiva Clear HENT: Yes: Atraumatic Neck: Yes: Supple Cardiovascular: Yes: S1, S2 Respiratory: Yes: CTA Bilaterally Gastrointestinal: Yes: Soft Genitourinary: Yes: WNL Musculoskeletal: Yes: WNL Edema: Yes Edema: LLE: 2+, RLE: 2+ Neurological: Yes: Oriented Psychiatric: Yes: Oriented Labs: CBC, BMP 10/21/19 07:15 10/22/19 08:20 INR, PTT INR 1.20 (0.83-1.09) H 10/20/19 15:23 Assessment/Plan Current Medications Generic Name Dose Route Start Last Admin Trade Name Freq PRN Reason Stop Dose Admin Bacitracin 1 applic 10/21/19 10:00 10/22/19 09:42 Bacitracin - TP 1 applic DAILY JESSI Administration Enoxaparin Sodium 40 mg 10/21/19 10:00 10/22/19 09:43 Lovenox - SQ 40 mg DAILY JESSI Administration Folic Acid 1 mg 10/21/19 10:00 10/22/19 09:42 Folic Acid - PO 1 mg DAILY JESSI Administration Furosemide 40 mg 10/21/19 10:00 10/22/19 09:42 Lasix Injection - IVPUSH 40 mg DAILY JESSI Administration Methotrexate 20 mg 10/28/19 10:00 Mexate - PO Tu JESSI Pantoprazole Sodium 40 mg 10/21/19 10:00 10/22/19 09:43 Protonix - PO 40 mg DAILY JESSI Administration Prednisone 40 mg 10/22/19 10:00 10/22/19 09:42 Deltasone - PO 40 mg DAILY JESSI Administration Impression 1. r/o polymyositis 2. fluid overload 3. edema 4. transaminitis 5. leukocytosis Plan - volume status improving - can transition to po lasix - will need outpt follow up - monitor lytes - bili is improving - cpk improving
[2019-10-22 15:08] VITALS: BP 163/98; PULSE 66; TEMP 98
--- NOTE | 2019-10-22 17:40 | PN ---
Teaching Attending Note Name of Resident: Maximino Meraz ATTENDING PHYSICIAN STATEMENT I saw and evaluated the patient. I reviewed the resident's note and discussed the case with the resident. I agree with the resident's findings and plan as documented. SUBJECTIVE: seen around 1 pm no fever or chills. she continues to feel stronger . legs feels smaller and edema is better. ambulated with no problem OBJECTIVE: NAD. MMM. CV: RRR, no MRG. Lungs: CTAB Ext; 1-2 + pitting edema on legs ASSESSMENT AND PLAN: 24 y/o lady with recent admission for with the diagnosis of polymyositis, subclinical hypothyroiridism, rhabdo, transaminitis , and elevated trop who was recently discharged and came back due to worsening LE edema . 1- Lower extremity edema, due to excessive hydration last admission 2- Rhabdo : CPK improved 3- poly-myositis 4- subclinical hypothyroidism 5- Transaminitis due to rhabdo : improving 6- Microcytic anemia Plan: - cont po lasix 20 mg daily x 5 more days after dc along with Kcl x 5 days - f.u with nephro - appreciate Ehrum help: MTX increased to 20 weekly and prednsione decreased to 40 daily - cont folic - TSH as out pt - f/u with rheum, she mami an appointment with rheum within her network booked fro her already - pelvic US with enlarged R ovary and with cysts . 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 - she has appointment in our resident clinic dc home
--- NOTE | 2019-10-22 19:00 | DS ---
Physical Exam: SUBJECTIVE: Patient seen and examined OBJECTIVE: Vital Signs Period Temp Pulse Resp BP Sys/Newell Pulse Ox Last 24 Hr 98.0 F-98.6 F 60-82 20-20 142-163/69-98 98 PHYSICAL EXAM GENERAL: The patient is awake, alert, and fully oriented, in no acute distress. HEAD: NC/AT EYES: extraocular movements intact, sclera anicteric, conjunctiva clear. No ptosis. ENT: Ears normal, nares patent, oropharynx clear without exudates, moist mucous membranes. No oral ulcers NECK: Trachea midline, full range of motion, supple. Neg cervical LAD LUNGS: CTAB, no accessory muscle use. HEART: Regular rate and rhythm, S1, S2 without murmur, rub or gallop. ABDOMEN: Soft, nontender, nondistended, no guarding, no rebound. EXTREMITIES: 2+ pulses, warm, well-perfused, 1+ edema to mid hernandez. Right anterior mid-thigh with ~4cm transverse surgical incision at site of muscle biopsy, no open drainage. NEUROLOGICAL: Cranial nerves II through XII grossly intact. Normal speech. 5/5 flexion/extension of B/L shoulder, B/L elbow flexion/extension. 5/5 flexion/ extension of BLE hip. PSYCH: normal mood SKIN: Warm, dry, normal turgor, no rashes or lesions noted LABS Laboratory Results - last 24 hr 10/22/19 08:20 Sodium 137 Potassium 4.2 Chloride 99 Carbon Dioxide 32 Anion Gap 6 L BUN 16.6 Creatinine 0.4 L Est GFR (CKD-EPI)AfAm 167.78 Est GFR (CKD-EPI)NonAf 144.76 Random Glucose 111 H Calcium 9.0 Total Bilirubin 0.8 AST 103 H ALT 198 H Alkaline Phosphatase 35 L Creatine Kinase 3610 H Creatine Kinase Index 1.4 CK-MB (CK-2) 51.3 H Total Protein 7.0 Albumin 3.3 L HOSPITAL COURSE: Date of Admission:10/20/19 Date of Discharge: 10/22/19 24F w/ pmh significant for recent hospitalization(10/05/19 - 10/17/19) for proximal muscle weakness, decreased ability to ambulated; admitted and treated for presumptive polymyositis. Received IVF, steroids + methotrexate + folic acid. CPK had downtrended from >14k to ~4k prior to discharge. Referred to [facility]- ED by NephroBobby) d/t continued BLE swelling and ortho. Admitted for fluid overload 2/2 recent iatrogenic IVF. Received lasix during hospitalization w/ recommendation to change to Lasix 20mg PO x5 coupled with K-Dur(10mEq) as oupt. Rheum(Leonora) reassessed pt and discussed muscle bx results(necrotizing myopathy w/ multifocal chronic inflammation, neg for protein deficiency; electron microscopy showing endomysial inflammation) suggestive of PolyMyositis. Regimen changed to Methotrexate 20mg/wk, Folic acid 1mg/d, prednisone 40mg/d. Had a US pelvis to r/o malignancy. Right ovarian cyst noted, to be f/u w/ outpatient Asbestos Textile Supervisor. Stable for discharge home Minutes to complete discharge: 32 Discharge Summary Problems reviewed: Yes Reason For Visit: GENERALIZED EDEMA Current Active Problems Edema of lower extremity (Acute) Elevated CPK (Acute) Elevated troponin (Acute) Polymyositis (Acute) Rhabdomyolysis (Acute) Transaminitis (Acute) Condition: Stable - Instructions Diet, Activity, Other Instructions: You were evaluated in the hospital for shortness of breath. You were given medications to urinate excess fluids from your body. A Recreational Leader re- evaluated you and reviewed the pathology results with you. Your medications were adjusted. A pelvic ultrasound showed a Right ovarian cyst. You were deemed stable for discharge home. MEDICATIONS: - increase: Methotrexate[MEXATE] 20mg, once a week - decrease: Prednisone[DELTASONE] 40mg, once a day with food - Furosemide[LASIX] 20mg, once daily for 5 days - Potassium Cloride[K-DUR] 10meq, once daily; to be taken with Furosemide[LASIX] . stop when you finish lasix - resume other previously prescribed medications. Continue taking Folic Acid, and Pantoprazole. PHYSICIAN FOLLOW-UP: - You will follow up with your primary care physician within 1-2 weeks. To discuss lab work, and get repeat lab work (eg. TSH). A referral to [facility] has been provided (Please come Sunday 11AM October) - Follow up with Recreational Leader (Leonora or Koby, ) and bring you biopsy results to discuss. To obtain a copy of your biopsy results please contact [facility]'s Medical Records department. - Follow up with Check Viewer(Gabe) within one week. - Follow up with Sealer Sander(Con) to discuss your Right ovarian cyst and enlarged overy . You need a transvaginal ultrasound and this is important to make sure the findings are benign not cancer Please seek immediate medical evaluation if you experience: - severe, worsening weakness - inability to walk or get out of bed - dark-discolored urine Referrals: Sorin Whalen [Other] (Recreational Leader. 11/10/19, @1pm) [facility] [place] [facility] [Provider Group] (10/28/19, 9:30am) Elpidio Lea MD [Staff Physician] - Hanane Andujar DO [Staff Physician] - Jodie Bernal MD [Staff Physician] - Disposition: HOME - Home Medications Comprehensive Discharge Medication List: Ambulatory Orders Bacitracin - [Bacitracin Topical Ointment -] 1 applic TP DAILY #1 tube 10/17/19 Folic Acid - 1 mg PO DAILY #30 tablet 10/17/19 Pantoprazole Sodium [Protonix -] 40 mg PO DAILY #30 tablet.ec 10/17/19 Methotrexate [Mexate -] 20 mg PO Tu #32 tablet 10/22/19 Potassium Chloride 10 meq PO DAILY #5 capsule.er 10/22/19 predniSONE [Deltasone -] 40 mg PO DAILY #56 tab 10/22/19 This patient is new to me today: No Emergency Visit: No Critical Care patient: No - Discharge Referral Referred to [facility] No ATTENDING PHYSICIAN STATEMENT I saw and evaluated the patient. I reviewed the resident's note and discussed the case with the resident. I agree with the resident's findings and plan as documented. SUBJECTIVE: OBJECTIVE: ASSESSMENT AND PLAN:
[2019-10-28] MEDS ORDERED: METHOTREXATE 2.5 MG TABLET PO SCH (10:00)
== END 2019-10-22 18:58 | disposition home or self-care (01) | DRG 861 ==
LOC: JER 14:45 → JERBED 18:08 → J6S 21:18
PROVIDERS: ADMIT Internal Medicine; ATTEND Internal Medicine
DX: R60.0 Localized edema (principal); M62.82 Rhabdomyolysis; M33.22 Polymyositis with myopathy; R74.0 Nonspecific elevation of levels of transaminase and lactic acid dehydrogenase [LDH]; Z68.33 Body mass index [BMI] 33.0-33.9, adult; D50.9 Iron deficiency anemia, unspecified
CPT/HCPCS: 36415; 76856-TC; 80051; 80053; 81003; 82436; 82550; 82553; 82565; 83735; 84100; 84133; 84300; 84484; 85025; 85610; 85730; 93005; 93010; 97116-GP; 97162-GP; 99284-25; J8610